=== PATIENT | female | born 1980 | race American Indian/Alaskan Native ===

== ENCOUNTER 2016-11-21 08:01 | Inpatient (IN) | payer MEDICARE ==
[2016-11-21 08:38] LABS: Basophils % (Auto) 0.7 % (0.0-1.8); Eosinophils % (Auto) 1.1 % (0.0-4.3); Hematocrit 38.5 % (30.3-42.9); Hemoglobin 12.8 gm/dl (10.1-14.3); Mean Corpuscular HGB Conc 33 % (30-34); Mean Corpuscular Hemoglobin 28 pg (28-32); Mean Corpuscular Volume 84 fl (79-97); Platelet Count 280 K/mm3 (140-440); Red Blood Count 4.57 M/mm3 (3.65-5.03); Red Cell Distribution Width 15.1 % (13.2-15.2); White Blood Count 6.7 K/mm3 (4.5-11.0)
[2016-11-21 09:18] LABS: Creatine Kinase MB 2.1 ng/mL (0.0-4.0)
[2016-11-21 09:19] LABS: Bacteria,Urine 1+ /HPF (Negative); Bilirubin,Urine NEG (Negative); Blood,Urine SM (Negative); Ketones,Urine 20 mg/dL (Negative); Leukocyte Esterase,Urine SM (Negative); Mucus,Urine FEW /HPF; Nitrite,Urine NEG (Negative); Protein,Urine <15 mg/dL mg/dL (Negative); Urobilinogen,Urine < 2.0 mg/dL (<2.0)
[2016-11-21 09:21] LABS: Creatine Kinase 37 units/L (30-135)
[2016-11-21 09:23] LABS: Anion Gap 21 mmol/L; B-Hydroxybutyrate 24.2 mg/dL (0.2-2.8); BUN/Creatinine Ratio 18.57; Blood Urea Nitrogen 13 mg/dL (7-17); Calcium 8.7 mg/dL (8.4-10.2); Carbon Dioxide 20 mmol/L (22-30); Chloride 101.7 mmol/L (98-107); Glucose 423 mg/dL (65-100); Potassium 4.7 mmol/L (3.6-5.0); Sodium 138 mmol/L (137-145)
[2016-11-21] MEDS ORDERED: MORPHINE IV ONE (17:51)
[2016-11-21] MEDS ORDERED: ZOFRAN IV ONE (17:51)
[2016-11-21] MEDS ORDERED: NITRO-BID 2% TP ONE (17:51)
[2016-11-21] MEDS ORDERED: ASPIRIN PO ONE (17:51)
--- NOTE | 2016-11-21 17:56 | Emergency Department Report ---
HPI - General Chief Complaint: Hyperglycemia Time Seen by Provider: 11/21/16 17:43 - HPI HPI: Hughes 26 The patient is a 36-year-old female presenting with a chief complaint of chest pain. The patient states 2 days ago she had noticed polyuria and polydipsia in addition to her glucose remained elevated despite being compliant with her insulin. The patient states last night she developed substernal chest pressure associated with left upper extremity numbness, nausea and vomiting. Patient denies shortness of breath and is uncertain if she developed diaphoresis with chest pain. Patient currently gives her chest pain a score of 8/10. The patient thinks she may of had a normal chemical stress test early 2015 but has never had a cardiac catheterization Location: Chest, see above Duration: [see above] Quality: Pressure Severity: 8/10 Modifying factors: [see above] Context: [see above] Mode of transportation: [not driving] ED Past Medical Hx - Past Medical History Previous Medical History?: Yes Hx Diabetes: Yes Hx Asthma: Yes Additional medical history: pneumonia - Surgical History Hx Cholecystectomy: Yes (2009) - Family History Family history: no significant - Social History Smoking Status: Current Every Day Smoker (1/4 pack per day) Substance Use Type: None (denies illicit drug use) - Medications Home Medications: Home Medications Medication Instructions Recorded Confirmed Last Taken Type Famotidine [Pepcid] 20 mg PO BID #60 tablet 05/19/16 09/19/16 Unknown Rx Gabapentin [Neurontin] 600 mg PO TID 08/19/16 09/19/16 Unknown History ALBUTEROL Inhaler [ProAir HFA 2 puff IH QID PRN 09/22/16 09/22/16 Unknown History Inhaler] Insulin Glargine [Lantus VIAL] 18 unit SUB-Q QHS 09/22/16 09/22/16 Unknown History Insulin Glargine [Lantus] 18 unit SUB-Q QAM #1 vial 09/22/16 Unknown Rx Insulin Lispro [Humalog 100 11 units SQ AC 09/22/16 09/22/16 Unknown History UNITS/ML Kwikpen] Levofloxacin [Levaquin TAB] 750 mg PO Q24H #3 tablet 09/22/16 Unknown Rx ED Review of Systems ROS: Stated complaint: HIGH BLOOD SUGAR/CHEST/SIDE PAIN Other details as noted in HPI Comment: All other systems reviewed and negative Constitutional: denies: chills, fever Eyes: denies: eye pain, eye discharge, vision change Respiratory: denies: cough, shortness of breath, wheezing Cardiovascular: chest pain Endocrine: increased thirst, increased urine Gastrointestinal: nausea, vomiting Genitourinary: denies: urgency, dysuria, discharge Musculoskeletal: denies: back pain, joint swelling, arthralgia Skin: denies: rash, lesions Neurological: numbness. denies: headache, weakness Psychiatric: denies: anxiety, depression Hematological/Lymphatic: denies: easy bleeding, easy bruising Physical Exam - Physical Exam Vital Signs: Vital Signs 11/21/16 11/21/16 11/21/16 08:09 15:31 15:35 Temperature 98.2 F 98.4 F Pulse Rate 82 72 Respiratory 16 16 16 Rate Blood Pressure 125/81 Blood Pressure 142/91 [Right] O2 Sat by Pulse 100 99 Oximetry 11/21/16 16:39 Temperature Pulse Rate 64 Respiratory 16 Rate Blood Pressure Blood Pressure 138/95 [Right] O2 Sat by Pulse 100 Oximetry Physical Exam: GENERAL: The patient is well-developed well-nourished female lying on stretcher not appearing to be in acute distress. [] HEENT: Normocephalic. Atraumatic. Extraocular motions are intact. Patient has moist mucous membranes. NECK: Supple. Trachea midline CHEST/LUNGS: Clear to auscultation. There is no respiratory distress noted. HEART/CARDIOVASCULAR: Regular. There is no tachycardia. There is no gallop rub or murmur. ABDOMEN: Abdomen is soft, nontender. Patient has normal bowel sounds. There is no abdominal distention. SKIN: There is no rash. There is no edema. There is no diaphoresis. NEURO: The patient is awake, alert, and oriented. The patient is cooperative. The patient has normal speech MUSCULOSKELETAL: There is no evidence of acute injury. ED Course Vital Signs 11/21/16 11/21/16 11/21/16 08:09 15:31 15:35 Temperature 98.2 F 98.4 F Pulse Rate 82 72 Respiratory 16 16 16 Rate Blood Pressure 125/81 Blood Pressure 142/91 [Right] O2 Sat by Pulse 100 99 Oximetry 11/21/16 16:39 Temperature Pulse Rate 64 Respiratory 16 Rate Blood Pressure Blood Pressure 138/95 [Right] O2 Sat by Pulse 100 Oximetry ED Medical Decision Making - Lab Data Result diagrams: 11/21/16 08:23 11/21/16 08:23 Laboratory Tests 11/21/16 11/21/16 11/21/16 08:08 08:23 08:23 WBC 6.7 RBC 4.57 Hgb 12.8 Hct 38.5 MCV 84 MCH 28 MCHC 33 RDW 15.1 Plt Count 280 Lymph % (Auto) 26.4 [place] % (Auto) 3.0 Eos % (Auto) 1.1 Baso % (Auto) 0.7 Lymph # 1.8 [place] # 0.2 Eos # 0.1 Baso # 0.0 Seg Neutrophils % 68.8 Seg Neutrophils # 4.6 VBG pH Sodium 138 Potassium 4.7 Chloride 101.7 Carbon Dioxide 20 L Anion Gap 21 BUN 13 Creatinine 0.7 Estimated GFR > 60 BUN/Creatinine Ratio 18.57 Glucose 423 H POC Glucose 369 H Calcium 8.7 Total Creatine Kinase CK-MB (CK-2) CK-MB (CK-2) Rel Index Troponin T Urine Color Urine Turbidity Urine pH Ur Specific [place] Urine Protein Urine Glucose (UA) Urine Ketones Urine Blood Urine Nitrite Urine Bilirubin Urine Urobilinogen Ur Leukocyte Esterase Urine WBC (Auto) Urine RBC (Auto) U Epithel Cells (Auto) Urine Bacteria (Auto) Urine Mucus Ketones 24.2 H 11/21/16 11/21/16 11/21/16 08:23 08:38 08:53 WBC RBC Hgb Hct MCV MCH MCHC RDW Plt Count Lymph % (Auto) [place] % (Auto) Eos % (Auto) Baso % (Auto) Lymph # [place] # Eos # Baso # Seg Neutrophils % Seg Neutrophils # VBG pH 7.351 Sodium Potassium Chloride Carbon Dioxide Anion Gap BUN Creatinine Estimated GFR BUN/Creatinine Ratio Glucose POC Glucose Calcium Total Creatine Kinase 37 CK-MB (CK-2) 2.1 CK-MB (CK-2) Rel Index 5.6 H Troponin T < 0.010 Urine Color Straw Urine Turbidity Clear Urine pH 5.0 Ur Specific [place] 1.028 Urine Protein <15 mg/dl Urine Glucose (UA) >=500 Urine Ketones 20 Urine Blood Sm Urine Nitrite Neg Urine Bilirubin Neg Urine Urobilinogen < 2.0 Ur Leukocyte Esterase Sm Urine WBC (Auto) 6.0 Urine RBC (Auto) 4.0 U Epithel Cells (Auto) 12.0 Urine Bacteria (Auto) 1+ Urine Mucus Few Ketones 11/21/16 11:38 WBC RBC Hgb Hct MCV MCH MCHC RDW Plt Count Lymph % (Auto) [place] % (Auto) Eos % (Auto) Baso % (Auto) Lymph # [place] # Eos # Baso # Seg Neutrophils % Seg Neutrophils # VBG pH Sodium Potassium Chloride Carbon Dioxide Anion Gap BUN Creatinine Estimated GFR BUN/Creatinine Ratio Glucose POC Glucose > 500 H Calcium Total Creatine Kinase CK-MB (CK-2) CK-MB (CK-2) Rel Index Troponin T Urine Color Urine Turbidity Urine pH Ur Specific [place] Urine Protein Urine Glucose (UA) Urine Ketones Urine Blood Urine Nitrite Urine Bilirubin Urine Urobilinogen Ur Leukocyte Esterase Urine WBC (Auto) Urine RBC (Auto) U Epithel Cells (Auto) Urine Bacteria (Auto) Urine Mucus Ketones - EKG Data -: EKG Interpreted by Me EKG shows normal: sinus rhythm Rate: normal - EKG Data When compared to previous EKG there are: changes noted Interpretation: nonspecific ST-T wave mega (new Biphasic T-wave in lead V3. New T-wave inversions in leads V4, V5, V6 when compared to previous EKG dated 2015) - Radiology Data Radiology results: image reviewed (chest x-ray) interpreted by me: Chest x-ray-no focal infiltrates, no pneumothorax - Differential Diagnosis ACS, DKA, GERD, pericarditis Critical care attestation.: If time is entered above; I have spent that time in minutes in the direct care of this critically ill patient, excluding procedure time. ED Disposition Clinical Impression: Chest pain, Hyperglycemia Disposition: OP ADMITTED IP TO THIS HOSP Is pt being admited?: Yes Does the pt Need Aspirin: Yes Condition: Fair Instructions: Chest Pain (ED) Referrals: PRIMARY CARE, [Primary Care Provider] - 3-5 Days Time of Disposition: 17:58 (hospitalist paged)
[2016-11-21] MEDS ORDERED: NACL 0.9% 1000 ML 1,000 ML IV ONE (18:00)
--- NOTE | 2016-11-21 18:03 | Admit Criteria Form ---
Admission Criteria Documentation: CHEST PAIN Clinical Indications for Admission to Inpatient Care (Place 'X' for any and all applicable criteria): Admission is indicated for chest pain and ANY ONE of the following(1)(2)(3)(4)(5 ): [ ]I. Angina with acute coronary syndrome (Also use Myocardial Infarction or Angina guideline) [ ]II. Hemodynamic instability [X ]III. Angina needing acute intervention as indicated by ALL of the following (11)(12): [X ]a) Unstable angina is present as indicated by angina that is ANY ONE of the following: [ X]i) New onset [ ]ii) Nocturnal [ ]iii) Prolonged at rest [ ]iv) Progressive [ X]b) Angina warrants acute intervention as indicated by ANY ONE of the following: [ ]i) Recurrent angina (e.g, not responding as previously to treatment) [ ]ii) Angina at rest or with low-level activities despite initial medical therapy [ ]iii) New or presumably new ST-segment depression on ECG [ ]iv) Signs or symptoms of heart failure (eg, dyspnea, pulmonary edema) [ ]v) New or worsening mitral regurgitation [ ]vi) Hemodynamic instability [ ]vii) Dangerous arrhythmia (eg, sustained ventricular tachycardia) [ ]viii) History of percutaneous coronary intervention within 6 months [ ]ix) History of coronary artery bypass graft surgery [ ]x) FITO risk score of 2 or greater[A] [X ]xi) History of Diabetes(14) [ ]xii) High-risk cardiac ischemia findings on noninvasive testing (e.g, echocardiogram, treadmill testing, nuclear scan) [ ]xiii) Chronic renal insufficiency (ie, estimated GFR less than 60 mL/min/1.732m) [ ]xiv) Left ventricular ejection fraction less than 40% [ ]IV. Evidence of AR (eg, cardiac biomarkers positive, ST-segment elevation on ECG) also use Myocardial Infarction Criteria Form. [ ]V. Pulmonary edema [ ]. Respiratory distress [ ]VII. Chest pain indicative of serious diagnosis other than coronary artery disease (eg, aortic dissection) [ ]VIII. Contraindications and/or Inappropriate clinical situations for Observational Care in patients with Chest Pain, when ANY ONE of the following is required: [ ]a) Patient with risk factor for pulmonary embolism, acute coronary syndrome and myocardial infarction (18) [ ]b) Patient with Pulmonary embolism require an average LOS of 4.3 days, therefore emergency department observation management is inappropriate 18,23 [ ]c) Painful condition/s in the elderly, have the highest rate of recidivism after emergency department observation management (10.8%) 20,21,22 [ ]d) Elevated cardiac biomarker requires intensive and exhaustive care (19) [ ]IX. General contraindications and/or Inappropriate clinical situations for Observational Care in patients with Chest Pain, when ANY ONE of the following is required: [ ]a) Prediction of prolongation of LOS based on ANY ONE of the following may be considered as a contraindication for observational care 2, 3, 4, 5, 6, 7, 8, 9, 10, 11 [ ]i) Age > 65 yrs. [ ]ii) Patient arriving by ambulance [ ]iii) Patient with high acuity [ ]iv) Patient requiring vital sign monitoring [ ]v) Patient on IV medication [ ]b) Systolic blood pressures 180mmHg 3,12 [ ]c) Patient with altered mental status including delirium and other alteration of consciousness, (3) [ ]d) Patient whose discharge disposition will be to a penitentiary home or rehabilitation home should not be managed in Emergency Department Observation Unit. CMS rule requires 3 days hospital stay before such placement. 3,13 [ ]e) Patient with failure to thrive due to broad array of etiologies 3,16,17 [ ]f) Inability to ambulate 3,14 Extended stay beyond goal length of stay may be needed for (1)(28): [ ]a) Specific condition diagnosed after evaluation (eg, pulmonary embolism, aortic dissection) [ ]b) Unstable angina [ ]c) Continued suspicion of acute coronary syndrome with inability to complete needed cardiac evaluation (eg, patient clinically unable to undergo stress testing) [ ]d) Myocardial infarction (Contents from ANGINA and CHEST PAIN clinical indications for admission to inpatient care have been integrated in this form) The original [employer] content created by [employer] has been revised. The portions of the content which have been revised are identified through the use of italic text or in bold, and [employer] has neither reviewed nor approved the modified material. All other unmodified content is copyright [employer]. Please see references footnoted in the original [email or web address] edition 2016 Admission Criteria Met: Yes
[2016-11-21] MEDS ORDERED: SUBLIMAZE IV ONE (19:34)
[2016-11-21] MEDS ORDERED: SODIUM CHLORIDE FLUSH SYRINGE 10 ML IV PRN (21:22)
--- NOTE | 2016-11-21 21:22 | History and Physical Report ---
History of Present Illness Date of examination: 11/21/16 Date of admission: 11/21/16 17:58 Chief complaint: L sided chest pain since AM History of present illness: L sided CP since AM.Also polydipsia and polyuria sec to high BG levels.Patient says she is compliant with insulinPain is about 7 on a scale of 1 to 10.Dull pain.No diaphoresis.No palpitations. Had stress in early 016 Past History Past Medical History: COPD, diabetes, GERD Past Surgical History: cholecystectomy Social history: smoking (1/4 pack a day) Medications and Allergies Allergies Allergy/AdvReac Type Severity Reaction Status Date / Time heparin Allergy Intermediate Hives Verified 08/18/16 14:28 Penicillins Allergy Intermediate Hives Verified 08/18/16 14:28 ketorolac tromethamine Allergy Itching Verified 08/18/16 14:28 [From Toradol] tramadol HCl [From Ultram] Allergy Itching Verified 08/18/16 14:28 Home Medications Medication Instructions Recorded Confirmed Last Taken Type Famotidine [Pepcid] 20 mg PO BID #60 tablet 05/19/16 09/19/16 11/21/16 Rx Gabapentin [Neurontin] 600 mg PO TID 08/19/16 09/19/16 11/21/16 History ALBUTEROL Inhaler [ProAir HFA 2 puff IH QID PRN 09/22/16 09/22/16 Unknown History Inhaler] Insulin Glargine [Lantus VIAL] 18 unit SUB-Q QHS 09/22/16 09/22/16 11/21/16 History Insulin Glargine [Lantus] 18 unit SUB-Q QAM #1 vial 09/22/16 11/21/16 Rx Insulin Lispro [Humalog 100 11 units SQ AC 09/22/16 09/22/16 11/21/16 History UNITS/ML Kwikpen] Levofloxacin [Levaquin TAB] 750 mg PO Q24H #3 tablet 09/22/16 Unknown Rx Zolpidem [Ambien] 10 mg PO QHS 11/21/16 11/21/16 11/20/16 History Review of Systems All systems: negative Cardiovascular: chest pain Endocrine: polydipsia, polyuria Exam - Constitutional Vitals: Temp Pulse Resp BP Pulse Ox 98.4 F 73 18 133/85 100 11/21/16 15:35 11/21/16 19:47 11/21/16 19:47 11/21/16 19:47 11/21/16 19:47 General appearance: Present: no acute distress, well-nourished - EENT Eyes: Present: PERRL ENT: hearing intact, clear oral mucosa - Neck Neck: Present: supple, normal ROM - Respiratory Respiratory effort: normal Respiratory: bilateral: CTA - Cardiovascular Heart Sounds: Present: S1 & S2. Absent: rub, click - Extremities Extremities: pulses symmetrical, No edema Peripheral Pulses: within normal limits - Abdominal General gastrointestinal: Present: soft, non-tender, non-distended, normal bowel sounds Female genitourinary: Present: normal - Integumentary Integumentary: Present: clear, warm, dry - Musculoskeletal Musculoskeletal: gait normal, strength equal bilaterally - Psychiatric Psychiatric: appropriate mood/affect, intact judgment & insight - Neurologic Neurologic: CNII-XII intact, moves all extremities Results - Labs CBC & Chem 7: 11/21/16 08:23 11/21/16 08:23 Labs: Abnormal lab results 11/21/16 Range/Units 19:54 POC Glucose > 500 H (70-105) Short CBC 11/21/16 Range/Units 08:23 WBC 6.7 (4.5-11.0) K/mm3 Hgb 12.8 (10.1-14.3) gm/dl Hct 38.5 (30.3-42.9) % Plt Count 280 (140-440) K/mm3 [facility] 11/21/16 08:23 Sodium 138 Potassium 4.7 Chloride 101.7 Carbon Dioxide 20 L BUN 13 Creatinine 0.7 Glucose 423 H Calcium 8.7 Cardiac Enzymes 11/21/16 11/21/16 Range/Units 08:38 23:19 Total Creatine Kinase 37 40 (30-135) units/L CK-MB (CK-2) 2.1 1.8 (0.0-4.0) ng/mL Troponin T < 0.010 < 0.010 (0.00-0.029) ng/mL Urine 11/21/16 Range/Units 08:53 Urine Color Straw (Yellow) Urine pH 5.0 (5.0-7.0) Ur Specific [place] 1.028 (1.003-1.030) Urine Protein <15 mg/dl (Negative) mg/dL Urine Glucose (UA) >=500 (Negative) mg/dL - Imaging and Cardiology EKG: report reviewed (Non specific ST T wave changes) Assessment and Plan - Patient Problems (1) Chest pain Current Visit: Yes Status: Acute Qualifiers: Chest pain type: unspecified Qualified Code(s): R07.9 - Chest pain, unspecified Plan to address problem: Chest pain w/u (2) Insulin dependent diabetes mellitus Current Visit: No Status: Chronic Plan to address problem: Cont Lantus and reg insulin (3) Asthma Current Visit: Yes Status: Chronic Qualifiers: Asthma severity: mild intermittent Asthma complication type: uncomplicated Qualified Code(s): J45.20 - Mild intermittent asthma, uncomplicated Plan to address problem: Albuterol MDI 2 puffs qid prn (4) Peripheral neuropathy Current Visit: Yes Status: Chronic Qualifiers: Peripheral neuropathy type: polyneuropathy associated with underlying disease Qualified Code(s): G63 - Polyneuropathy in diseases classified elsewhere Plan to address problem: Cont Gabapentin (5) GERD (gastroesophageal reflux disease) Current Visit: Yes Status: Chronic Qualifiers: Esophagitis presence: without esophagitis Qualified Code(s): K21.9 - Gastro -esophageal reflux disease without esophagitis Plan to address problem: cont ppi's (6) DVT prophylaxis Current Visit: Yes Status: Chronic Plan to address problem: Lovenox
[2016-11-21] MEDS ORDERED: PROAIR IH PRN (21:24)
[2016-11-21] MEDS ORDERED: PROVENTIL IH PRN (21:35)
[2016-11-21] MEDS ORDERED: LEVEMIR SUB-Q SCH (22:00)
[2016-11-21] MEDS ORDERED: INSULIN GLARGINE 18 UNIT SUB-Q SCH (22:00)
[2016-11-21] MEDS ORDERED: AMBIEN PO PRN (22:52)
[2016-11-21] MEDS: PEPCID PO SCH (23:03)
[2016-11-21] MEDS: PERCOCET 5/325 PO PRN (23:03)
[2016-11-22 00:46] LABS: Creatine Kinase MB 1.8 ng/mL (0.0-4.0)
[2016-11-22 00:48] LABS: Creatine Kinase 40 units/L (30-135)
[2016-11-22 05:48] VITALS: BP 111/74
[2016-11-22] MEDS: PERCOCET 5/325 PO PRN ×2 (06:32→12:45)
[2016-11-22] MEDS ORDERED: INSULIN LISPRO SQ SCH (07:30)
[2016-11-22] MEDS ORDERED: NEURONTIN PO SCH ×2 (08:00)
--- NOTE | 2016-11-22 08:15 | XRay Report ---
AP CHEST : 11/21/16 08:01:00 CLINICAL: Chest pain. COMPARISON:09/19/16 FINDINGS: Normal heart and pulmonary vessels. The lungs are mildly hyperexpanded and clear. The bones and soft tissues are unremarkable. IMPRESSION: Mild pulmonary hyperinflation but otherwise normal.
[2016-11-22] MEDS: NOVOLOG SUB-Q SCH ×4 (08:30→12:55)
--- NOTE | 2016-11-22 09:07 | Consultation ---
History of Present Illness Consult date: 11/22/16 Requesting physician: BIPIN BAIG History of present illness: The patient is a 36 year old female with a history of diabetes, tobacco abuse who presented with complaints of intermittent substernal chest pain with radiation to her left arm over the past 3 days. She describes the pain as "pressure" and "tightness." Associated with nausea, vomiting and diaphoresis. Denies shortness of breath. No exacerbating or relieving factors. Troponin negative x 2. Blood glucose 423 on admission. Stress test done 05/2016 was negative for ischemia. No previous cardiac cath. Past History Past Medical History: diabetes Past Surgical History: cholecystectomy Social history: smoking (1/4 pack a day). denies: alcohol abuse, prescription drug abuse, IV drug use Family history: no significant family history Medications and Allergies Allergies Allergy/AdvReac Type Severity Reaction Status Date / Time heparin Allergy Intermediate Hives Verified 08/18/16 14:28 Penicillins Allergy Intermediate Hives Verified 08/18/16 14:28 ketorolac tromethamine Allergy Itching Verified 08/18/16 14:28 [From Toradol] tramadol HCl [From Ultram] Allergy Itching Verified 08/18/16 14:28 Home Medications Medication Instructions Recorded Confirmed Last Taken Type Famotidine [Pepcid] 20 mg PO BID #60 tablet 05/19/16 09/19/16 11/21/16 Rx Gabapentin [Neurontin] 600 mg PO TID 08/19/16 09/19/16 11/21/16 History ALBUTEROL Inhaler [ProAir HFA 2 puff IH QID PRN 09/22/16 09/22/16 Unknown History Inhaler] Insulin Glargine [Lantus VIAL] 18 unit SUB-Q QHS 09/22/16 09/22/16 11/21/16 History Insulin Glargine [Lantus] 18 unit SUB-Q QAM #1 vial 09/22/16 11/21/16 Rx Insulin Lispro [Humalog 100 11 units SQ AC 09/22/16 09/22/16 11/21/16 History UNITS/ML Kwikpen] Levofloxacin [Levaquin TAB] 750 mg PO Q24H #3 tablet 09/22/16 Unknown Rx Zolpidem [Ambien] 10 mg PO QHS 0211/21/16 11/20/16 History Active Meds: Active Medications Albuterol (Proventil) 2.5 mg IH Q4HRT PRN PRN Reason: Shortness Of Breath Famotidine (Pepcid) 20 mg PO BID [facility] Last Admin: 11/21/16 23:03 Dose: 20 mg Gabapentin (Neurontin) 600 mg PO TID [facility] Insulin Aspart (Novolog) 0 units SUB-Q ACHS [facility] PRN Reason: Protocol Insulin Aspart (Novolog) 11 units SUB-Q AC [facility] Insulin Detemir (Levemir) 18 units SUB-Q QHS [facility] Last Admin: 11/22/16 00:07 Dose: 18 units Insulin Detemir (Levemir) 18 units SUB-Q QAM [facility] Oxycodone/Acetaminophen (Percocet 5/325) 1 tab PO Q6H PRN PRN Reason: Pain, Moderate (4-6) Last Admin: 11/22/16 06:32 Dose: 1 tab Sodium Chloride (Sodium Chloride Flush Syringe 10 Ml) 10 ml IV PRN PRN PRN Reason: LINE FLUSH Zolpidem Tartrate (Ambien) 10 mg PO QHS PRN PRN Reason: Insomnia Last Admin: 11/21/16 23:03 Dose: 10 mg Review of Systems Constitutional: no fever, no chills Ears, nose, mouth and throat: no nasal congestion, no nasal discharge, no sinus pressure Cardiovascular: chest pain, no orthopnea, no palpitations, no shortness of breath, no dyspnea on exertion, no leg edema Respiratory: no cough, no shortness of breath, no dyspnea on exertion, no congestion, no wheezing Gastrointestinal: nausea, vomiting, no abdominal pain, no diarrhea, no constipation Genitourinary Female: no dysuria, no urgency Musculoskeletal: no neck stiffness, no neck pain, no myalgias Integumentary: no rash, no pruritis Neurological: no parathesias, no numbness, no tingling, no headaches Endocrine: no cold intolerance, no heat intolerance Hematologic/Lymphatic: no easy bruising, no easy bleeding Allergic/Immunologic: no urticaria, no wheezing Physical Examination Vital Signs Temp Pulse Resp BP Pulse Ox 98.2 F 82 16 125/81 100 11/21/16 08:09 11/21/16 08:09 11/21/16 08:09 11/21/16 08:09 11/21/16 08:09 General appearance: no acute distress HEENT: Positive: Normocephaly, Mucus Membranes Moist Neck: Positive: neck supple, trachea midline Cardiac: Positive: Reg Rate and Rhythm, S1/S2 Lungs: Positive: clear to auscultation Neuro: Positive: Grossly Intact Abdomen: Positive: Soft, Active Bowel Sounds. Negative: Tender Skin: Positive: Clear. Negative: Rash Extremities: Present: normal. Absent: edema Results 11/21/16 08:23 11/21/16 08:23 Cardiac Enzymes 11/21/16 Range/Units 23:19 CK-MB (CK-2) 1.8 (0.0-4.0) ng/mL - Imaging and Cardiology Echo: report reviewed (08/2016: EF 55-60%) EKG: image reviewed EKG interpretations - Telemetry EKG Rhythm: Sinus Rhythm - EKG Sinus rhythms and dysrhythmias: sinus rhythm Repolarization changes or abnormalities: ST or T wave suggestive of ischemia Assessment and Plan Chest pain troponin negative x 2 stress MPI 05/2016: no ischemia Echo 08/2016: EF 55-60% Left heart cath today for definitive diagnosis Uncontrolled diabetes management per primary Tobacco abuse counseled on cessation Will proceed with left heart cath today for definitive diagnosis. Risks, benefits and alternatives were discussed with the patient and she agrees to proceed. Further recommendations to follow. The patient has been seen in conjunction with Dr. Lyman who agrees with the assessment and plan of care. Thank you Dr. Baig for allowing us to participate in the care of this patient.
[2016-11-22] MEDS ORDERED: ECOTRIN PO ONE ×2 (09:59→10:05)
[2016-11-22] MEDS ORDERED: ASPIRIN PO ONE (10:00)
[2016-11-22] MEDS ORDERED: INSULIN GLARGINE 18 UNIT SUB-Q SCH (10:00)
[2016-11-22] MEDS ORDERED: NACL 0.9% 500 ML 500 ML IV SCH (10:00)
[2016-11-22] MEDS ORDERED: LEVEMIR SUB-Q SCH (10:00)
[2016-11-22] MEDS ORDERED: NACL 0.9% 500 ML 1,000 ML ONE (10:05)
[2016-11-22] MEDS ORDERED: ANGIOMAX IV ONE (10:05)
[2016-11-22] MEDS ORDERED: NACL 0.9% 100 ML ONE (10:06)
[2016-11-22] MEDS ORDERED: NACL 0.9% 500 ML 500 ML ONE ×2 (10:07→10:22)
[2016-11-22] MEDS ORDERED: CALAN ONE (10:21)
[2016-11-22] MEDS ORDERED: VERSED ONE (10:21)
[2016-11-22] MEDS ORDERED: NITROGLYCERIN SYRINGE 3 ML ONE (10:22)
[2016-11-22] MEDS ORDERED: XYLOCAINE 2% INFILTRATI ONE (10:29)
[2016-11-22] MEDS: SUBLIMAZE ONE ×2 (10:40→10:56)
--- NOTE | 2016-11-22 12:10 | Cardiac Catherization Report ---
CARDIAC CATHETERIZATION REFERRING PHYSICIAN: Joselyn Rivera MD INDICATION FOR PROCEDURE: The patient is a pleasant 36-year-old -[place] female with recurrent chest pain, had a negative stress test some 5 months ago, similar symptoms. She was offered 3 choices. Medical management, cardiac CT was recommended, she declined and cardiac catheterization. She would like to proceed with cardiac catheterization. Risks, benefits, and potential alternatives explained at length prior to obtaining informed consent. She signed the document saying she is not . PROCEDURE IN DETAIL: The patient was brought to the labor contractor in a postabsorptive state, prepped and draped in sterile fashion. Alex's test in right hand was normal. A 2 mL of 2% lidocaine used to anesthetize the right wrist. A standard 5 [place]an hydrophilic sheath used to cannulate the right radial artery via modified Seldinger technique. All exchanges performed to exchange a J-tip guidewire. JL3.5 catheter used to engage the left main. No dampening or ventricularization. Cineangiography performed in all projections. JR4 catheter used to cross the aortic valve under fluoroscopic guidance. Left ventriculography performed in 30 COSTA and 30 AMRIK projections via hand injections, catheter flushed. Manual pullback performed with continuous pressure monitoring. Catheter used to engage the right coronary. No dampening or ventricularization. Cineangiography performed in all projections. Next, catheter removed from the body of wire, sheath removed. Manual pressure used to achieve hemostasis. DATA: Aortic pressure is 110/70, LV pressure is 110, LVEDP of 10 mmHg. Left ventriculography reveals normal systolic performance with estimated ejection fraction of 55-60%. No evidence of aortic stenosis. CORONARY ANATOMY: This is a right dominant system. Right coronary is a moderate sized vessel, courses AV groove, distally bifurcates in the posterior descending and posterolateral branch. No significant stenosis noted. Left main is without significant disease, bifurcates into left anterior descending and left circumflex. LAD is a moderate sized vessel, courses anterior intergroove, wraps around the apex, no significant disease. Left circumflex is a moderate sized vessel, courses AV groove, no significant disease. CONCLUSIONS: 1. No angiographic evidence of significant epicardial coronary artery disease in this right dominant system. 2. Normal left ventricular systolic performance with estimated ejection fraction of 55-60%. 3. No evidence of aortic stenosis. 4. Normal LVEDP. Recommend aggressive risk factor modification. Results of procedure explained to the patient. All questions and concerns were addressed to her expectation. JOB# [id number] KONSTANTIN/NTS
[2016-11-22] MEDS: PEPCID PO SCH (12:47)
--- NOTE | 2016-11-22 13:20 | Discharge Summary ---
Providers - Providers Date of Admission: 11/21/16 17:58 Date of discharge: 11/22/16 Attending physician: BIPIN BAIG MD 11/21/16 Consult to Cardiac Rehabilitation [CONS] Routine Reason For Exam: Phase I Primary care physician: ALBERTO ROSS MD Hospitalization Reason for admission: chest pain Condition: Fair Procedures: Cardiac cath negative for obstruction Hospital course: 36-year-old female with history of diabetes presented to the emergency department complaining of chest pain. Recently patient was also presented with chest pain and cardiac stress test done and negative for ischemia. On current presentation EKG was normal sinus rhythm, troponin were negative. Because the patient Was recurrent chest pain cardiac cath was done which was negative for any obstruction. Patient has mild chest pain when I saw her and she was given pain medication and discharged home to have follow-up with primary care physician. Patient was stable during the time of discharge. Disposition: DISCHARGED TO HOME OR SELFCARE Time spent for discharge: 31 minutes Core Measure Documentation - Palliative Care Palliative Care/ Comfort Measures: Not Applicable - Core Measures Any of the following diagnoses?: none Exam - Physical Exam Narrative exam: Not in cardiopulmonary distress. Vital signs as documented. Head exam is unremarkable. No scleral icterus . Neck is without jugular venous distension, thyromegaly, or carotid bruits. Lungs are clear to auscultation. Cardiac exam reveals regular rate and Rhythm. First and second heart sounds normal. No murmurs, rubs or gallops. Abdominal exam reveals normal bowel sounds, no masses, no organomegaly and no aortic enlargement. Extremities are nonedematous and both femoral and pedal pulses are normal. DRAFTSPERSON: Alert and oriented 3. No focal weakness. - Constitutional Vitals: Temp Pulse Resp BP Pulse Ox 98.2 F 71 18 111/74 97 11/22/16 08:00 11/22/16 08:00 11/22/16 08:00 11/22/16 08:00 11/22/16 08:00 Plan Activity: no restrictions Weight Bearing Status: Full Weight Bearing (Patient was discharged after 11:00 am because the patient was having cardiac cath in the morning.) Diet: low cholesterol, diabetic Follow up with: PRIMARY CAREMD [Primary Care Provider] - 3-5 Days Forms: Work/School Excuse Out Patient Prescriptions: oxyCODONE /ACETAMINOPHEN [Percocet 5/325 mg] 1 tab PO Q6H PRN #12 tablet PRN Reason: Pain, Moderate (4-6)
== END 2016-11-22 17:28 | disposition home or self-care (01) | DRG 287 ==
LOC: ED 08:01 → UNDOADMIN 17:58 → 3A 17:58 → 4A 21:23
PROVIDERS: ADMIT Internal Medicine; ATTEND Internal Medicine
PROC: 4A023N7 Measurement of Cardiac Sampling and Pressure, Left Heart, Percutaneous Approach (ICD-10-PCS; principal; 2016-11-21)
PROC: B2151ZZ Fluoroscopy of Left Heart using Low Osmolar Contrast (ICD-10-PCS; 2016-11-21)
PROC: B2111ZZ Fluoroscopy of Multiple Coronary Arteries using Low Osmolar Contrast (ICD-10-PCS; 2016-11-21)
DX: R07.9 Chest pain, unspecified (principal); J44.9 Chronic obstructive pulmonary disease, unspecified; K21.9 Gastro-esophageal reflux disease without esophagitis; F17.200 Nicotine dependence, unspecified, uncomplicated; J45.909 Unspecified asthma, uncomplicated; E11.42 Type 2 diabetes mellitus with diabetic polyneuropathy; Z88.0 Allergy status to penicillin; Z90.49 Acquired absence of other specified parts of digestive tract; Z79.4 Long term (current) use of insulin; Z88.8 Allergy status to other drugs, medicaments and biological substances
CPT/HCPCS: 36415; 71010; 80048; 81001; 81025; 82010; 82550; 82553; 82805; 82962; 84484; 85025; 93005; 93010; 93458; 96361; 96372; 96374; 96375; 99406; C1894; J0583; J1815; J1818; J2250; J2270; J2405; J3010; J7030; J7040; Q9967

== ENCOUNTER 2016-11-28 21:53 | Emergency (ER) | payer MEDICARE ==
[2016-11-28 22:53] LABS: Basophils % (Auto) 0.8 % (0.0-1.8); Eosinophils % (Auto) 1.1 % (0.0-4.3); Hematocrit 39.2 % (30.3-42.9); Hemoglobin 12.8 gm/dl (10.1-14.3); Mean Corpuscular HGB Conc 33 % (30-34); Mean Corpuscular Hemoglobin 28 pg (28-32); Mean Corpuscular Volume 86 fl (79-97); Platelet Count 290 K/mm3 (140-440); Red Blood Count 4.56 M/mm3 (3.65-5.03); Red Cell Distribution Width 15.1 % (13.2-15.2); White Blood Count 9.1 K/mm3 (4.5-11.0)
[2016-11-28 23:11] LABS: B-Hydroxybutyrate 1.4 mg/dL (0.2-2.8); BUN/Creatinine Ratio 16.66; Blood Urea Nitrogen 15 mg/dL (7-17); Calcium 8.8 mg/dL (8.4-10.2); Carbon Dioxide 21 mmol/L (22-30); Sodium 130 mmol/L (137-145)
[2016-11-28 23:12] LABS: Anion Gap 21 mmol/L; Chloride 92.6 mmol/L (98-107); Potassium 4.5 mmol/L (3.6-5.0)
[2016-11-28 23:19] LABS: Glucose 685 mg/dL (65-100)
[2016-11-29] MEDS ORDERED: NACL 0.9% 1000 ML 1,000 ML IV ONE ×2 (02:33→04:38)
[2016-11-29] MEDS ORDERED: ZOFRAN IV ONE (02:33)
[2016-11-29] MEDS ORDERED: DILAUDID IV ONE (02:33)
--- NOTE | 2016-11-29 02:37 | Emergency Department Report ---
ED General Adult HPI - General Chief complaint: Hyperglycemia Stated complaint: HIGH BLOODSUGAR,INFECTION RT ARM Time Seen by Provider: 11/29/16 02:22 Source: patient, RN notes reviewed, old records reviewed Mode of arrival: Ambulatory Limitations: No Limitations - History of Present Illness Initial comments: This is a 36-year-old female. She is previously unknown to me. She has a past medical history of diabetes, diabetic gastroparesis. Patient had a right-sided radial cardiac catheterization performed on 2016 at this facility. The patient presents to the ER with multiple complaints. Her first complaint is right-sided hand and forearm pain. The pain has been present for 1 week. It is achy. It increases with palpation or range of motion. It decreases with rest. There is no extremity weakness. Her next complainthis crampy abdominal discomfort, nausea, vomiting. No irritative or obstructive urinary symptoms. Abdominal cramping is similar to prior episodes of hyperglycemia. No fevers or chills. No chest pain or shortness of breath. The patient does indicate minimal discharge from the right upper extremity catheterization site. -: Gradual Location: right, upper extremity Radiation: abdomen Quality: aching Consistency: intermittent Improves with: rest Worsens with: movement Associated Symptoms: loss of appetite, malaise, nausea/vomiting, weakness - Related Data Home Medications Medication Instructions Recorded Confirmed Last Taken Gabapentin [Neurontin] 600 mg PO TID 08/19/16 11/29/16 11/21/16 Zolpidem [Ambien] 10 mg PO QHS 11/21/16 11/29/16 11/20/16 Insulin Aspart Prot/Aspart 11 units SQ BID 11/29/16 11/29/16 Unknown [Novolog Mix 70/30] oxyCODONE /ACETAMINOPHEN [Percocet 5 mg PO PRN 11/29/16 11/29/16 Unknown 5/325 mg] Previous Rx's Medication Instructions Recorded Last Taken Type Insulin Glargine [Lantus VIAL] 18 unit SUB-Q QAM #1 vial 09/22/16 11/21/16 Rx Clindamycin [Clindamycin CAP] 300 mg PO Q8H #15 cap 11/29/16 Unknown Rx Dicyclomine [Bentyl] 10 mg PO QID PRN #20 capsule 11/29/16 Unknown Rx Famotidine [Pepcid] 20 mg PO QDAY #30 tablet 11/29/16 Unknown Rx Ondansetron [Zofran Odt] 4 mg PO QID PRN #20 tab.rapdis 11/29/16 Unknown Rx Promethazine [Phenergan SUPPOS] 50 mg IN Q6H PRN #15 supp.rect 11/29/16 Unknown Rx Allergies Allergy/AdvReac Type Severity Reaction Status Date / Time heparin Allergy Intermediate Hives Verified 08/18/16 14:28 Penicillins Allergy Intermediate Hives Verified 08/18/16 14:28 ketorolac tromethamine Allergy Itching Verified 08/18/16 14:28 [From Toradol] tramadol HCl [From Ultram] Allergy Itching Verified 08/18/16 14:28 ED Review of Systems ROS: Stated complaint: HIGH BLOODSUGAR,INFECTION RT ARM Other details as noted in HPI Constitutional: malaise Eyes: denies: vision change ENT: denies: epistaxis Respiratory: denies: cough Cardiovascular: denies: chest pain Gastrointestinal: abdominal pain, nausea, vomiting Genitourinary: denies: urgency, dysuria Musculoskeletal: arthralgia, myalgia Skin: lesions Neurological: weakness ED Past Medical Hx - Past Medical History Previous Medical History?: Yes Hx Congestive Heart Failure: No Hx Diabetes: Yes Hx Asthma: Yes Hx COPD: No Hx HIV: No Additional medical history: pneumonia. MRSA - Surgical History Past Surgical History?: Yes Hx Cholecystectomy: Yes (2009) - Social History Smoking Status: Current Every Day Smoker - Medications Home Medications: Home Medications Medication Instructions Recorded Confirmed Last Taken Type Gabapentin [Neurontin] 600 mg PO TID 08/19/16 11/29/16 11/21/16 History Insulin Glargine [Lantus VIAL] 18 unit SUB-Q QAM #1 vial 09/22/16 11/29/1611/21 Rx Zolpidem [Ambien] 10 mg PO QHS 11/21/16 11/29/16 11/20/16 History Clindamycin [Clindamycin CAP] 300 mg PO Q8H #15 cap 11/29/16 Unknown Rx Dicyclomine [Bentyl] 10 mg PO QID PRN #20 capsule 11/29/16 Unknown Rx Famotidine [Pepcid] 20 mg PO QDAY #30 tablet 11/29/16 Unknown Rx Insulin Aspart Prot/Aspart 11 units SQ BID 11/29/16 11/29/16 Unknown History [Novolog Mix 70/30] Ondansetron [Zofran Odt] 4 mg PO QID PRN #20 tab.rapdis 11/29/16 Unknown Rx Promethazine [Phenergan SUPPOS] 50 mg IN Q6H PRN #15 supp.rect 11/29/16 Unknown Rx oxyCODONE /ACETAMINOPHEN [Percocet 5 mg PO PRN 11/29/16 11/29/16 Unknown History 5/325 mg] ED Physical Exam - General Limitations: No Limitations General appearance: alert, in no apparent distress - Head Head exam: Present: atraumatic, normocephalic - Eye Eye exam: Present: normal appearance, EOMI. Absent: nystagmus - ENT ENT exam: Present: normal exam, normal orophraynx, mucous membranes moist, normal external ear exam - Neck Neck exam: Present: normal inspection, full ROM. Absent: tenderness, meningismus - Respiratory Respiratory exam: Present: normal lung sounds bilaterally. Absent: respiratory distress, wheezes, rales, rhonchi, stridor, chest wall tenderness - Cardiovascular Cardiovascular Exam: Present: regular rate, normal rhythm, normal heart sounds. Absent: bradycardia, tachycardia, irregular rhythm, systolic murmur, diastolic murmur, rubs, gallop - GI/Abdominal GI/Abdominal exam: Present: soft, normal bowel sounds. Absent: distended, tenderness, guarding, rebound, rigid, pulsatile mass - Extremities Exam Extremities exam: Present: full ROM, tenderness, normal capillary refill, other (there are 2+ pulses noted in 4 extremities. The right radial catheterization site demonstrates no obvious pus, streaking, crepitus or swelling. At the catheterization site, there is a 0.5 cm area of erythema. It is minimally tender. The compartments are soft.). Absent: pedal edema, joint swelling, calf tenderness - Back Exam Back exam: Present: normal inspection, full ROM. Absent: tenderness, CVA tenderness (R), CVA tenderness (L), muscle spasm, paraspinal tenderness, vertebral tenderness - Neurological Exam Neurological exam: Present: alert, oriented X3, normal gait, other (Extraocular movements intact. Tongue midline. No facial droop. Facial sensation intact to light touch in the V1, V2, V3 distribution bilaterally. 5 and 5 strength in 4 extremities.. Sensation is intact to light touch in 4 extremities.). Absent : motor sensory deficit - Psychiatric Psychiatric exam: Present: normal affect, normal mood - Skin Skin exam: Present: warm, dry, intact, normal color. Absent: rash ED Course Vital Signs 11/28/16 11/29/16 22:05 04:16 Temperature 98.9 F 99.2 F Pulse Rate 90 87 Respiratory 18 18 Rate Blood Pressure 128/94 Blood Pressure 126/66 [Left] O2 Sat by Pulse 100 98 Oximetry - Reevaluation(s) Reevaluation #1: 11/29/16 04:16 Differential diagnoses: Gastroparesis, hyperglycemia, diabetic ketoacidosis, pain status post cardiac catheterization, cyclic vomiting syndrome, narcotic bowel syndrome Assessment and plan: 36-year-old female with hyperglycemia without significant anion gap, minimally low venous pH, does not have large ketones in her blood. There is minimal erythema at the insertion site of the right upper extremity where her cardiac catheterization took place, but it is very localized without any distal swelling, crepitus cellulitis, or obvious compartment syndrome. Patient has been observed in the ER for a prolonged period of time, I see no active vomiting. Her abdomen is soft and benign. Repeat Accu-Chek is 392. She reports that she is not . She will be started on oral antibiotics, instructed to initiate warm compresses , counseled to follow up with outpatient Reevaluation #2: 11/29/16 04:35 patient now indicating the presence of chest wall discomfort. It is central. Does not rated to the back, arms or neck. EKG morphologically unchanged from prior EKG. Her negative cardiac catheterization about a week ago. I see no reason to repeat a set of troponins on her given her recent cardiac catheterization. Clinically doubt the patient has a pulmonary embolus, she is not hypoxic, pain not pleuritic, I find the patient to be low risk by well's criteria, and review review of her old medical records indicates that the patient has chronic complaint of chest pain. Reevaluation #3: 11/29/16 05:29 repeat Accu-Chek 295. Chest x-ray negative. No active vomiting. Patient will be discharged. ED Medical Decision Making - Lab Data Result diagrams: 11/28/16 22:22 11/28/16 22:22 Vital Signs 11/28/16 11/29/16 22:05 04:16 Temperature 98.9 F 99.2 F Pulse Rate 90 87 Respiratory 18 18 Rate Blood Pressure 128/94 Blood Pressure 126/66 [Left] O2 Sat by Pulse 100 98 Oximetry Lab Results 11/28/16 11/28/16 11/28/16 Range/Units 22:11 22:22 22:22 WBC 9.1 (4.5-11.0) K/mm3 RBC 4.56 (3.65-5.03) M/mm3 Hgb 12.8 (10.1-14.3) gm/dl Hct 39.2 (30.3-42.9) % MCV 86 (79-97) fl MCH 28 (28-32) pg MCHC 33 (30-34) % RDW 15.1 (13.2-15.2) % Plt Count 290 (140-440) K/mm3 Lymph % (Auto) 30.2 (13.4-35.0) % [place] % (Auto) 3.9 (0.0-7.3) % Eos % (Auto) 1.1 (0.0-4.3) % Baso % (Auto) 0.8 (0.0-1.8) % Lymph # 2.7 (1.2-5.4) K/mm3 [place] # 0.4 (0.0-0.8) K/mm3 Eos # 0.1 (0.0-0.4) K/mm3 Baso # 0.1 (0.0-0.1) K/mm3 Seg Neutrophils % 64.0 (40.0-70.0) % Seg Neutrophils # 5.8 (1.8-7.7) K/mm3 VBG pH (7.320-7.420) Sodium 130 L (137-145) mmol/L Potassium 4.5 (3.6-5.0) mmol/L Chloride 92.6 L (98-107) mmol/L Carbon Dioxide 21 L (22-30) mmol/L Anion Gap 21 mmol/L BUN 15 (7-17) mg/dL Creatinine 0.9 (0.7-1.2) mg/dL Estimated GFR > 60 ml/min BUN/Creatinine Ratio 16.66 % Glucose 685 H* (65-100) mg/dL POC Glucose > 500 H (70-105) Calcium 8.8 (8.4-10.2) mg/dL Total Creatine Kinase (30-135) units/L Ketones 1.4 (0.2-2.8) mg/dL 11/28/16 11/29/16 Range/Units 22:22 03:13 WBC (4.5-11.0) K/mm3 RBC (3.65-5.03) M/mm3 Hgb (10.1-14.3) gm/dl Hct (30.3-42.9) % MCV (79-97) fl MCH (28-32) pg MCHC (30-34) % RDW (13.2-15.2) % Plt Count (140-440) K/mm3 Lymph % (Auto) (13.4-35.0) % [place] % (Auto) (0.0-7.3) % Eos % (Auto) (0.0-4.3) % Baso % (Auto) (0.0-1.8) % Lymph # (1.2-5.4) K/mm3 [place] # (0.0-0.8) K/mm3 Eos # (0.0-0.4) K/mm3 Baso # (0.0-0.1) K/mm3 Seg Neutrophils % (40.0-70.0) % Seg Neutrophils # (1.8-7.7) K/mm3 VBG pH 7.312 L (7.320-7.420) Sodium (137-145) mmol/L Potassium (3.6-5.0) mmol/L Chloride (98-107) mmol/L Carbon Dioxide (22-30) mmol/L Anion Gap mmol/L BUN (7-17) mg/dL Creatinine (0.7-1.2) mg/dL Estimated GFR ml/min BUN/Creatinine Ratio % Glucose (65-100) mg/dL POC Glucose (70-105) Calcium (8.4-10.2) mg/dL Total Creatine Kinase 44 (30-135) units/L Ketones (0.2-2.8) mg/dL - EKG Data 11/29/16 04:39 Normal sinus, 88 bpm, nonspecific atrial enlargement, T wave inversion in V3, V4 , V5 and V6. Morphologically abnormal EKG. Not consistent with STEMI. Appears unchanged compared to prior EKG from 11/22/2016. Critical care attestation.: If time is entered above; I have spent that time in minutes in the direct care of this critically ill patient, excluding procedure time. ED Disposition Clinical Impression: Hyperglycemia, Abnormal EKG Disposition: DISCHARGED TO HOME OR SELFCARE Is pt being admited?: No Does the pt Need Aspirin: No Condition: Stable Instructions: Diabetic Hyperglycemia (ED) Additional Instructions: Take the pain medication, nausea medication, antibiotic therapy as directed. Apply warm compresses to the right upper extremity painful site. Follow-up with the marine electrician apprentice within the next week. Follow up with a primary care doctor within the next week. Return to the ER right away with new pain, worsened pain, migration of pain, fevers or chills, intractable nausea or vomiting, inability to tolerate liquid feeds. Referrals: PRIMARY CARE, [Primary Care Provider] - 3-5 Days MARISOL OWEN MD [Staff Physician] - 3-5 Days MONA PEDERSEN MD [Staff Physician] - 3-5 Days
[2016-11-29 04:17] VITALS: BP 126/66
[2016-11-29] MEDS ORDERED: PEPCID PO ONE (04:20)
[2016-11-29] MEDS ORDERED: ALUM-MAG HYDROX-SIMETH 200-200-20MG/5ML PO ONE (04:20)
[2016-11-29 04:50] LABS: Bilirubin,Urine NEG (Negative); Blood,Urine NEG (Negative); Ketones,Urine TR mg/dL (Negative); Leukocyte Esterase,Urine SM (Negative); Mucus,Urine FEW /HPF; Nitrite,Urine NEG (Negative); Protein,Urine <15 mg/dL mg/dL (Negative); Urobilinogen,Urine < 2.0 mg/dL (<2.0)
[2016-11-29] MEDS ORDERED: BENTYL PO ONE (05:39)
--- NOTE | 2016-11-29 08:50 | XRay Report ---
PORTABLE CHEST: INDICATION: Chest pain. COMPARISON: 11/21/2016 FINDINGS: Portable, frontal chest radiograph again demonstrates normal cardiomediastinal silhouette and well-expanded lungs. No pleural effusions or CHF. Approximately 3.7 x 2.7 cm rounded left retrocardiac density projects about the left costovertebral angle/paravertebral. EKG leads. No acute osseous process with approximately 8 mm calcification at the right shoulder/calcific tendinitis. CONCLUSION: 1. Subtle left retrocardiac round mass-like density suspected, overall smaller since September 2016. Though may represent residual pneumonia, it may also be further characterized with chest CT, if warranted. 2. Few other findings, including right shoulder calcification. Thank you for the opportunity to participate in this patient's care.
== END 2016-11-29 06:00 | disposition home or self-care (01) ==
LOC: ED 21:53
DX: E11.65 Type 2 diabetes mellitus with hyperglycemia (principal); R94.31 Abnormal electrocardiogram [ECG] [EKG]; J45.909 Unspecified asthma, uncomplicated; F17.200 Nicotine dependence, unspecified, uncomplicated
CPT/HCPCS: 36415; 71010; 80048; 81001; 81025; 82010; 82550; 82805; 82962; 85025; 93005; 93010; 96361; 96374; 96375; 99285; J1170; J2405; J7030; J1815

== ENCOUNTER 2017-04-17 17:29 | Emergency (ER) | payer MEDICARE ==
--- NOTE | 2017-04-17 17:51 | Emergency Department Report ---
Entered by SHAHIDA BISWAS, acting as scribe for APOLINAR FERRER NP. Chief Complaint: Chest Pain Stated Complaint: CHEST PAIN/ ELEVATED BLOOD SUGAR Time Seen by Provider: 04/17/17 17:39 - HPI History of Present Illness: 37 y/o female presents to the ED c/o chest pain x 3 days. Associated symptoms include high blood glucose >500. Denies fever and chills. NKDA. PT states there was a recent change in her insulin - ROS Review of Systems: +chest pain +high blood glucose -fever -chills + nausea - Exam Vital Signs: Vital Signs 04/17/17 17:41 Temperature 98.5 F Pulse Rate 86 Respiratory 18 Rate Blood Pressure 123/86 O2 Sat by Pulse 97 Oximetry Physical Exam: pt looks well, non toxic. thin no acute distress bg >500 MSE screening note: Focused history and physical exam performed. Due to findings the following was ordered: labs ED Disposition for MSE Condition: Stable This documentation as recorded by the scribe,SHAHIDA BISWAS,accurately reflects the service I personally performed and the decisions made by CARISSA rivers TRACY M, ÓSCAR.
[2017-04-17 18:16] LABS: Basophils % (Auto) 0.7 % (0.0-1.8); Hemoglobin 13.4 gm/dl (10.1-14.3); Mean Corpuscular HGB Conc 33 % (30-34); Mean Corpuscular Hemoglobin 29 pg (28-32); Mean Corpuscular Volume 87 fl (79-97); Platelet Count 249 K/mm3 (140-440); Red Blood Count 4.61 M/mm3 (3.65-5.03); Red Cell Distribution Width 15.1 % (13.2-15.2); White Blood Count 7.7 K/mm3 (4.5-11.0)
[2017-04-17 18:27] LABS: Alanine Aminotransferase 6 units/L (7-56); Albumin 4.2 g/dL (3.9-5); Albumin/Globulin Ratio 1.4 %; Alkaline Phosphatase 130 units/L (35-129); Anion Gap 21 mmol/L; BUN/Creatinine Ratio 21.25; Blood Urea Nitrogen 17 mg/dL (7-17); Calcium 8.9 mg/dL (8.4-10.2); Carbon Dioxide 22 mmol/L (22-30); Chloride 93.9 mmol/L (98-107); Lipase 47 units/L (13-60); Potassium 4.9 mmol/L (3.6-5.0); Sodium 132 mmol/L (137-145); Total Protein 7.1 g/dL (6.3-8.2)
[2017-04-17 18:32] LABS: Glucose 582 mg/dL (65-100)
[2017-04-17 18:51] LABS: Bacteria,Urine 1+ /HPF (Negative); Bilirubin,Urine NEG (Negative); Blood,Urine NEG (Negative); Ketones,Urine TR mg/dL (Negative); Leukocyte Esterase,Urine TR (Negative); Mucus,Urine FEW /HPF; Nitrite,Urine NEG (Negative); Protein,Urine <15 mg/dL mg/dL (Negative); Urobilinogen,Urine < 2.0 mg/dL (<2.0)
[2017-04-17] MEDS ORDERED: NACL 0.9% 1000 ML 1,000 ML ONE (22:36)
[2017-04-17] MEDS ORDERED: NACL 0.9% 1000 ML 1,000 ML IV ONE ×2 (22:43→22:51)
[2017-04-17] MEDS ORDERED: ZOFRAN ONE (22:46)
[2017-04-17] MEDS ORDERED: ZOFRAN IV ONE (22:51)
[2017-04-17] MEDS ORDERED: ZITHROMAX 500 MG in NACL 0.9% 250ML 250 ML IV ONE (22:51)
[2017-04-17] MEDS ORDERED: LEVAQUIN 750MG/150ML 750 MG/150 ML BAG IV ONE (22:53)
[2017-04-17] MEDS ORDERED: MORPHINE IV ONE (23:50)
[2017-04-17] MEDS ORDERED: MORPHINE ONE (23:56)
--- NOTE | 2017-04-18 01:30 | Emergency Department Report ---
ED General Adult HPI - General Chief complaint: Chest Pain Stated complaint: CHEST PAIN/ ELEVATED BLOOD SUGAR Time Seen by Provider: 04/17/17 17:39 Source: patient Mode of arrival: Ambulatory Limitations: No Limitations - History of Present Illness Initial comments: PATIENT PRESENTED TO THE ER WITH COMPLAIN OF CHEST PAIN ,COUGH AND HIGH BLOOD GLUCOSE, DENIED ANY FEVER. PATIENT STATED THAT SHE HAS BEEN TAKING HER INSULIN SUPPOSED TO BE. -: Gradual Location: chest Radiation: non-radiation Severity scale (0 -10): 8 Quality: aching Improves with: none Associated Symptoms: chest pain, cough. denies: confusion, diaphoresis, fever/ chills, loss of appetite, malaise, nausea/vomiting, shortness of breath - Related Data Previous Rx's Medication Instructions Recorded Last Taken Type Gabapentin [Neurontin] 400 mg PO TID #90 capsule 03/25/17 Unknown Rx Insulin Glargine [Lantus VIAL] 18 units SQ BIDDIAB #1 vial 03/25/17 Unknown Rx Insulin Lispro [HumaLOG VIAL] 11 units SQ AC #1 vial 03/25/17 Unknown Rx Ondansetron [Zofran Odt] 4 mg PO QID PRN #20 tab.rapdis 03/25/17 Unknown Rx Zolpidem [Ambien] 10 mg PO QHS #30 tablet 03/25/17 Unknown Rx oxyCODONE /ACETAMINOPHEN [Percocet 1 tab PO Q6HR PRN #24 tablet 03/25/17 Unknown Rx 5/325 mg] HYDROcodone/APAP 5-325 [[place] 1 each PO Q6HR PRN #10 tablet 04/18/17 Unknown Rx 5/325] Levofloxacin [Levaquin TAB] 500 mg PO QDAY #7 tablet 04/18/17 Unknown Rx Allergies Allergy/AdvReac Type Severity Reaction Status Date / Time heparin Allergy Intermediate Hives Verified 03/23/17 13:56 Penicillins Allergy Intermediate Hives Verified 03/23/17 13:56 ketorolac tromethamine Allergy Itching Verified 03/23/17 13:56 [From Toradol] tramadol HCl [From Ultram] Allergy Itching Verified 03/23/17 13:56 ED Review of Systems ROS: Stated complaint: CHEST PAIN/ ELEVATED BLOOD SUGAR Other details as noted in HPI Comment: All other systems reviewed and negative ED Past Medical Hx - Past Medical History Hx Hypertension: No Hx Heart Attack/AMI: No Hx Congestive Heart Failure: No Hx Diabetes: Yes Hx Deep Vein Thrombosis: No Hx Pulmonary Embolism: No Hx Liver Disease: No Hx Sickle Cell Disease: No (Sickle Cell Trait) Hx Arthritis: No Hx Asthma: Yes Hx COPD: No Hx Tuberculosis: No Hx HIV: No Additional medical history: pneumonia. MRSA - Surgical History Hx Coronary Stent: No Hx Open Heart Surgery: No Hx Pacemaker: No Hx Internal Defibrillator: No Hx Cholecystectomy: Yes Hx Appendectomy: No Hx Breast Surgery: No Additional Surgical History: X 2. HERNIA REPAIR - Social History Smoking Status: Current Every Day Smoker Substance Use Type: None - Medications Home Medications: Home Medications Medication Instructions Recorded Confirmed Last Taken Type Gabapentin [Neurontin] 400 mg PO TID #90 capsule 03/25/17 Unknown Rx Insulin Glargine [Lantus VIAL] 18 units SQ BIDDIAB #1 vial 03/25/17 Unknown Rx Insulin Lispro [HumaLOG VIAL] 11 units SQ AC #1 vial 03/25/17 Unknown Rx Ondansetron [Zofran Odt] 4 mg PO QID PRN #20 tab.rapdis 03/25/17 Unknown Rx Zolpidem [Ambien] 10 mg PO QHS #30 tablet 03/25/17 Unknown Rx oxyCODONE /ACETAMINOPHEN [Percocet 1 tab PO Q6HR PRN #24 tablet 03/25/17 Unknown Rx 5/325 mg] HYDROcodone/APAP 5-325 [[place] 1 each PO Q6HR PRN #10 tablet 04/18/17 Unknown Rx 5/325] Levofloxacin [Levaquin TAB] 500 mg PO QDAY #7 tablet 04/18/17 Unknown Rx ED Physical Exam - General Limitations: No Limitations General appearance: alert, in no apparent distress - Head Head exam: Present: atraumatic, normal inspection - Eye Eye exam: Present: normal appearance - ENT ENT exam: Present: normal exam - Neck Neck exam: Present: normal inspection - Respiratory Respiratory exam: Present: normal lung sounds bilaterally, chest wall tenderness. Absent: respiratory distress, wheezes, rales, rhonchi, accessory muscle use, decreased breath sounds, prolonged expiratory - Cardiovascular Cardiovascular Exam: Present: regular rate, normal rhythm, normal heart sounds. Absent: bradycardia, tachycardia, irregular rhythm, systolic murmur, diastolic murmur, rubs, gallop - GI/Abdominal GI/Abdominal exam: Present: soft. Absent: distended, tenderness, guarding, rebound, rigid, normal bowel sounds, diminished bowel sounds, mass, bruit, pulsatile mass - Neurological Exam Neurological exam: Present: alert, oriented X3, CN II-XII intact, normal gait. Absent: motor sensory deficit - Skin Skin exam: Present: warm, dry ED Course Vital Signs 04/17/17 04/17/17 17:41 22:28 Temperature 98.5 F 98.2 F Pulse Rate 86 68 Respiratory 18 16 Rate Blood Pressure 123/86 Blood Pressure 124/85 [Left] O2 Sat by Pulse 97 100 Oximetry - Reevaluation(s) Reevaluation #1: 04/18/17 01:49 PATIENT STATED THAT SHE FEEL MUCH BETTER. HER BLOOD GLUCOSE IS 209. PATIENT STATED THAT SHE WILL FOLLOW UP WITH HER PCP TODAY FOR INSULIN ADJUSTMENT ED Medical Decision Making - Lab Data Result diagrams: 04/17/17 17:47 04/17/17 17:47 Critical care attestation.: If time is entered above; I have spent that time in minutes in the direct care of this critically ill patient, excluding procedure time. ED Disposition Clinical Impression: Hyperglycemia, Acute bronchitis Disposition: DC-01 TO HOME OR SELFCARE Is pt being admited?: No Does the pt Need Aspirin: No Condition: Stable Instructions: Acute Bronchitis (ED), Diabetic Hyperglycemia (ED) Prescriptions: HYDROcodone/APAP 5-325 [[place] 5/325] 1 each PO Q6HR PRN #10 tablet PRN Reason: Pain Levofloxacin [Levaquin TAB] 500 mg PO QDAY #7 tablet Referrals: PRIMARY CARE, [Primary Care Provider] - 3-5 Days
[2017-04-18 03:56] VITALS: BP 108/67
--- NOTE | 2017-04-18 07:57 | XRay Report ---
ROUTINE CHEST, TWO VIEWS: HISTORY: chest pain. The trachea, heart, mediastinal contour, lung corcoran and bony thorax are unremarkable. No significant change since 03/23/17. IMPRESSION: Unremarkable chest x-ray.
== END 2017-04-18 01:50 | disposition home or self-care (01) ==
LOC: ED 17:29
DX: E11.65 Type 2 diabetes mellitus with hyperglycemia (principal); J20.9 Acute bronchitis, unspecified; J45.909 Unspecified asthma, uncomplicated; F17.210 Nicotine dependence, cigarettes, uncomplicated; Z79.4 Long term (current) use of insulin; Z88.0 Allergy status to penicillin; Z88.8 Allergy status to other drugs, medicaments and biological substances; Z88.6 Allergy status to analgesic agent
CPT/HCPCS: 36415; 71020; 80053; 81001; 82805; 82962; 83690; 84484; 84703; 85025; 93005; 93010; 96361; 96365; 96375; 96376; 99284; J1956; J2270; J2405; J7030; J1815

== ENCOUNTER 2017-08-28 15:32 | Inpatient (IN) | payer MEDICARE ==
[2017-08-28 16:13] LABS: Basophils % (Auto) 0.7 % (0.0-1.8); Eosinophils % (Auto) 1.4 % (0.0-4.3); Hematocrit 39.3 % (30.3-42.9); Hemoglobin 12.7 gm/dl (10.1-14.3); Mean Corpuscular HGB Conc 32 % (30-34); Mean Corpuscular Hemoglobin 29 pg (28-32); Mean Corpuscular Volume 90 fl (79-97); Platelet Count 264 K/mm3 (140-440); Red Blood Count 4.36 M/mm3 (3.65-5.03); White Blood Count 5.7 K/mm3 (4.5-11.0)
[2017-08-28 16:30] LABS: Anion Gap 22 mmol/L; BUN/Creatinine Ratio 17; Blood Urea Nitrogen 15 mg/dL (7-17); Calcium 8.5 mg/dL (8.4-10.2); Carbon Dioxide 21 mmol/L (22-30); Chloride 89.8 mmol/L (98-107); Potassium 5.2 mmol/L (3.6-5.0); Sodium 128 mmol/L (137-145)
[2017-08-28 16:41] LABS: Glucose 889 mg/dL (65-100)
[2017-08-28] MEDS ORDERED: ZOFRAN IV ONE (16:43)
[2017-08-28] MEDS ORDERED: NACL 0.9% 1000 ML 1,000 ML IV ONE ×2 (16:43→18:38)
[2017-08-28 17:09] LABS: Bilirubin,Urine Negative (Negative); Blood,Urine Small (Negative); Ketones,Urine Negative (Negative); Leukocyte Esterase,Urine Trace (Negative); Nitrite,Urine Negative (Negative); Protein,Urine <15 mg/dL mg/dL (Negative); Urobilinogen,Urine < 2.0 mg/dL (<2.0)
[2017-08-28] MEDS ORDERED: DILAUDID IV ONE (17:35)
[2017-08-28 17:58] LABS: Creatine Kinase MB 3.5 ng/mL (0.0-4.0)
[2017-08-28 17:59] LABS: Alanine Aminotransferase 20 units/L (7-56); Albumin 3.9 g/dL (3.9-5); Albumin/Globulin Ratio 1.8 %; Alkaline Phosphatase 152 units/L (35-129); Creatine Kinase 68 units/L (30-135); Lipase 61 units/L (13-60); Total Protein 6.1 g/dL (6.3-8.2)
[2017-08-28 18:07] LABS: Bilirubin,Direct < 0.2 mg/dL (0-0.2); Bilirubin,Indirect 0.3 mg/dL
--- NOTE | 2017-08-28 18:13 | Emergency Department Report ---
ED N/V/D HPI - General Chief complaint: Hyperglycemia Stated complaint: COUGH, CHEST PAIN AND HIGH BLOOD SUGAR Time Seen by Provider: 08/28/17 17:01 Source: patient Mode of arrival: Ambulatory Limitations: No Limitations - History of Present Illness Initial comments: 37-year-old female with a past medical history of insulin dependent diabetes, asthma, sickle cell trait, and previous cholecystectomy assessment hospital complaints of elevated glucose the last 2 days, anterior chest pain, nausea and vomiting, and cough productive of yellow sputum. Patient's primary care doctor recently adjusted her insulin. Patient continues to take Lantus 45 units at night and 35 units in the a.m. Her NovoLog was switched from 15 units with each meal to a sliding scale dose. Patient states her typical dose is less than her previous 15 Unit dose based on a sliding scale measurement. Patient complains of anterior sternal chest pain described as sharp, constant, worse with movement and palpation. She denies shortness of breath. Positive cough productive of yellow sputum without fever. Positive nausea and vomiting without abdominal pain. Positive urinary frequency without dysuria. - Related Data Previous Rx's Medication Instructions Recorded Last Taken Type Gabapentin [Neurontin] 400 mg PO TID #90 capsule 03/25/17 Unknown Rx Insulin Glargine [Lantus VIAL] 18 units SQ BIDDIAB #1 vial 03/25/17 Unknown Rx Insulin Lispro [HumaLOG VIAL] 11 units SQ AC #1 vial 03/25/17 Unknown Rx Ondansetron [Zofran Odt] 4 mg PO QID PRN #20 tab.rapdis 03/25/17 Unknown Rx Zolpidem [Ambien] 10 mg PO QHS #30 tablet 03/25/17 Unknown Rx oxyCODONE /ACETAMINOPHEN [Percocet 1 tab PO Q6HR PRN #24 tablet 03/25/17 Unknown Rx 5/325 mg] HYDROcodone/APAP 5-325 [[place] 1 each PO Q6HR PRN #10 tablet 04/18/17 Unknown Rx 5/325] Levofloxacin [Levaquin TAB] 500 mg PO QDAY #7 tablet 04/18/17 Unknown Rx Acetaminophen [Tylenol Arthritis] 650 mg PO Q6HR PRN #30 tablet.er 08/09/17 Unknown Rx Albuterol Sulfate [Proair 90 mcg IH Q4HR PRN #2 aer.pow.ba 08/09/17 Unknown Rx Respiclick] Azithromycin 250 mg PO QDAY #6 tablet 08/09/17 Unknown Rx Benzonatate [Tessalon Perles] 100 mg PO Q8HR PRN #30 capsule 08/09/17 Unknown Rx Fluticasone [Flonase] 1 spray NS QDAY #1 bottle 08/09/17 Unknown Rx Ipratropium [place] [Atrovent Hfa] 12.9 gm IH Q4HR #2 hfa.aer.ad 08/09/17 Unknown Rx Allergies Allergy/AdvReac Type Severity Reaction Status Date / Time heparin Allergy Intermediate Hives Verified 08/09/17 07:40 Penicillins Allergy Intermediate Hives Verified 08/09/17 07:40 ketorolac tromethamine Allergy Itching Verified 08/09/17 07:40 [From Toradol] tramadol HCl [From Ultram] Allergy Itching Verified 08/09/17 07:40 ED Review of Systems ROS: Stated complaint: COUGH, CHEST PAIN AND HIGH BLOOD SUGAR Other details as noted in HPI Comment: All other systems reviewed and negative Other: Constitutional: No fevers chills Eyes: No eye pain visual changes ENT: No ear pain or throat pain Neck: Denies pain Respiratory: Denies cough wheezing shortness of breath Cardiovascular: Denies palpitations, syncope GI: Denies abdominal pain : Denies dysuria Musculoskeletal: Denies back pain Skin: Denies rash, lesions, erythema Neurologic: Denies headache, numbness, weakness Psychiatric: Denies suicidal ideation, hallucinations ED Past Medical Hx - Past Medical History Previous Medical History?: Yes Hx Hypertension: No Hx Heart Attack/AMI: No Hx Congestive Heart Failure: No Hx Diabetes: Yes Hx Deep Vein Thrombosis: No Hx Pulmonary Embolism: No Hx Liver Disease: No Hx Sickle Cell Disease: No (Sickle Cell Trait) Hx Arthritis: No Hx Asthma: Yes Hx COPD: No Hx Tuberculosis: No Hx HIV: No Additional medical history: pneumonia. MRSA - Surgical History Past Surgical History?: Yes Hx Coronary Stent: No Hx Open Heart Surgery: No Hx Pacemaker: No Hx Internal Defibrillator: No Hx Cholecystectomy: Yes Hx Appendectomy: No Hx Breast Surgery: No Additional Surgical History: X 2. HERNIA REPAIR - Social History Smoking Status: Never Smoker Substance Use Type: None - Medications Home Medications: Home Medications Medication Instructions Recorded Confirmed Last Taken Type Gabapentin [Neurontin] 400 mg PO TID #90 capsule 03/25/17 Unknown Rx Insulin Glargine [Lantus VIAL] 18 units SQ BIDDIAB #1 vial 03/25/17 Unknown Rx Insulin Lispro [HumaLOG VIAL] 11 units SQ AC #1 vial 03/25/17 Unknown Rx Ondansetron [Zofran Odt] 4 mg PO QID PRN #20 tab.rapdis 03/25/17 Unknown Rx Zolpidem [Ambien] 10 mg PO QHS #30 tablet 03/25/17 Unknown Rx oxyCODONE /ACETAMINOPHEN [Percocet 1 tab PO Q6HR PRN #24 tablet 03/25/17 Unknown Rx 5/325 mg] HYDROcodone/APAP 5-325 [[place] 1 each PO Q6HR PRN #10 tablet 04/18/17 Unknown Rx 5/325] Levofloxacin [Levaquin TAB] 500 mg PO QDAY #7 tablet 04/18/17 Unknown Rx Acetaminophen [Tylenol Arthritis] 650 mg PO Q6HR PRN #30 tablet.er 08/09/17 Unknown Rx Albuterol Sulfate [Proair 90 mcg IH Q4HR PRN #2 aer.pow.ba 08/09/17 Unknown Rx Respiclick] Azithromycin 250 mg PO QDAY #6 tablet 08/09/17 Unknown Rx Benzonatate [Tessalon Perles] 100 mg PO Q8HR PRN #30 capsule 08/09/17 Unknown Rx Fluticasone [Flonase] 1 spray NS QDAY #1 bottle 08/09/17 Unknown Rx Ipratropium [place] [Atrovent Hfa] 12.9 gm IH Q4HR #2 hfa.aer.ad 08/09/17 Unknown Rx ED Physical Exam - General Limitations: No Limitations - Other Other exam information: General: No limitations, patient is alert in no acute distress Head exam: Atraumatic, normocephalic Eyes exam: Normal appearance ENT: Dry mucous membranes, no thrush Neck exam: Normal inspection, full range of motion, no meningismus nontender Respiratory exam: Clear to auscultation bilateral, no wheezes, rales, crackles Cardiovascular: Normal rate and rhythm, normal heart sounds Abdomen: Soft, nondistended, and nontender, with normal bowel sounds, no rebound, or guarding Extremity: Full range of motion normal inspection no deformity Back: Normal Inspection, full range of motion, no tenderness Neurologic: Alert, oriented x3, cranial nerves intact, no motor or sensory deficit Psychiatric: normal affect, normal mood Skin: Warm, dry, intact ED Course Vital Signs 08/28/17 08/28/17 08/28/17 15:40 17:55 17:58 Temperature 98.9 F Pulse Rate 83 81 Respiratory 16 19 17 Rate Blood Pressure 121/92 118/79 O2 Sat by Pulse 99 100 100 Oximetry - Reevaluation(s) Reevaluation #1: 08/28/17 19:23 Patient feeling better after Dilaudid, Zofran, normal saline. Regular insulin also given ED Medical Decision Making - Lab Data Result diagrams: 08/28/17 15:54 08/28/17 15:59 Lab Results 08/28/17 08/28/17 08/28/17 Range/Units 15:39 15:54 15:59 WBC 5.7 (4.5-11.0) K/mm3 RBC 4.36 (3.65-5.03) M/mm3 Hgb 12.7 (10.1-14.3) gm/dl Hct 39.3 (30.3-42.9) % MCV 90 (79-97) fl MCH 29 (28-32) pg MCHC 32 (30-34) % RDW 15.0 (13.2-15.2) % Plt Count 264 (140-440) K/mm3 Lymph % (Auto) 34.2 (13.4-35.0) % [place] % (Auto) 4.6 (0.0-7.3) % Eos % (Auto) 1.4 (0.0-4.3) % Baso % (Auto) 0.7 (0.0-1.8) % Lymph # 2.0 (1.2-5.4) K/mm3 [place] # 0.3 (0.0-0.8) K/mm3 Eos # 0.1 (0.0-0.4) K/mm3 Baso # 0.0 (0.0-0.1) K/mm3 Seg Neutrophils % 59.1 (40.0-70.0) % Seg Neutrophils # 3.4 (1.8-7.7) K/mm3 VBG pH (7.320-7.420) Sodium 128 L (137-145) mmol/L Potassium 5.2 H (3.6-5.0) mmol/L Chloride 89.8 L (98-107) mmol/L Carbon Dioxide 21 L (22-30) mmol/L Anion Gap 22 mmol/L BUN 15 (7-17) mg/dL Creatinine 0.9 (0.7-1.2) mg/dL Estimated GFR > 60 ml/min BUN/Creatinine Ratio 17 % Glucose 889 H* (65-100) mg/dL POC Glucose > 500 H (70-105) Calcium 8.5 (8.4-10.2) mg/dL Total Bilirubin (0.1-1.2) mg/dL Direct Bilirubin (0-0.2) mg/dL Indirect Bilirubin mg/dL AST (5-40) units/L ALT (7-56) units/L Alkaline Phosphatase (35-129) units/L Total Creatine Kinase (30-135) units/L CK-MB (CK-2) (0.0-4.0) ng/mL CK-MB (CK-2) Rel Index (0-4) Troponin T (0.00-0.029) ng/mL Total Protein (6.3-8.2) g/dL Albumin (3.9-5) g/dL Albumin/Globulin Ratio % Lipase (13-60) units/L Urine Color (Yellow) Urine Turbidity (Clear) Urine pH (5.0-7.0) Ur Specific [place] (1.003-1.030) Urine Protein (Negative) mg/dL Urine Glucose (UA) (Negative) mg/dL Urine Ketones (Negative) mg/dL Urine Blood (Negative) Urine Nitrite (Negative) Urine Bilirubin (Negative) Urine Urobilinogen (<2.0) mg/dL Ur Leukocyte Esterase (Negative) Urine WBC (Auto) (0.0-6.0) /HPF Urine RBC (Auto) (0.0-6.0) /HPF U Epithel Cells (Auto) (0-13.0) /HPF Urine HCG, Qual (Negative) 08/28/17 08/28/17 08/28/17 Range/Units 15:59 16:05 Unknown WBC (4.5-11.0) K/mm3 RBC (3.65-5.03) M/mm3 Hgb (10.1-14.3) gm/dl Hct (30.3-42.9) % MCV (79-97) fl MCH (28-32) pg MCHC (30-34) % RDW (13.2-15.2) % Plt Count (140-440) K/mm3 Lymph % (Auto) (13.4-35.0) % [place] % (Auto) (0.0-7.3) % Eos % (Auto) (0.0-4.3) % Baso % (Auto) (0.0-1.8) % Lymph # (1.2-5.4) K/mm3 [place] # (0.0-0.8) K/mm3 Eos # (0.0-0.4) K/mm3 Baso # (0.0-0.1) K/mm3 Seg Neutrophils % (40.0-70.0) % Seg Neutrophils # (1.8-7.7) K/mm3 VBG pH 7.313 L (7.320-7.420) Sodium (137-145) mmol/L Potassium (3.6-5.0) mmol/L Chloride (98-107) mmol/L Carbon Dioxide (22-30) mmol/L Anion Gap mmol/L BUN (7-17) mg/dL Creatinine (0.7-1.2) mg/dL Estimated GFR ml/min BUN/Creatinine Ratio % Glucose (65-100) mg/dL POC Glucose (70-105) Calcium (8.4-10.2) mg/dL Total Bilirubin 0.50 (0.1-1.2) mg/dL Direct Bilirubin < 0.2 (0-0.2) mg/dL Indirect Bilirubin 0.3 mg/dL AST 18 (5-40) units/L ALT 20 (7-56) units/L Alkaline Phosphatase 152 H (35-129) units/L Total Creatine Kinase 68 (30-135) units/L CK-MB (CK-2) 3.5 (0.0-4.0) ng/mL CK-MB (CK-2) Rel Index 5.1 H (0-4) Troponin T < 0.010 (0.00-0.029) ng/mL Total Protein 6.1 L (6.3-8.2) g/dL Albumin 3.9 (3.9-5) g/dL Albumin/Globulin Ratio 1.8 % Lipase 61 H (13-60) units/L Urine Color Yellow (Yellow) Urine Turbidity Clear (Clear) Urine pH 7.0 (5.0-7.0) Ur Specific [place] 1.005 (1.003-1.030) Urine Protein <15 mg/dl (Negative) mg/dL Urine Glucose (UA) >500 (Negative) mg/dL Urine Ketones Negative (Negative) mg/dL Urine Blood Small A (Negative) Urine Nitrite Negative (Negative) Urine Bilirubin Negative (Negative) Urine Urobilinogen < 2.0 (<2.0) mg/dL Ur Leukocyte Esterase Trace (Negative) Urine WBC (Auto) 2.0 (0.0-6.0) /HPF Urine RBC (Auto) 3.0 (0.0-6.0) /HPF U Epithel Cells (Auto) 5.0 (0-13.0) /HPF Urine HCG, Qual (Negative) 08/28/17 Range/Units Unknown WBC (4.5-11.0) K/mm3 RBC (3.65-5.03) M/mm3 Hgb (10.1-14.3) gm/dl Hct (30.3-42.9) % MCV (79-97) fl MCH (28-32) pg MCHC (30-34) % RDW (13.2-15.2) % Plt Count (140-440) K/mm3 Lymph % (Auto) (13.4-35.0) % [place] % (Auto) (0.0-7.3) % Eos % (Auto) (0.0-4.3) % Baso % (Auto) (0.0-1.8) % Lymph # (1.2-5.4) K/mm3 [place] # (0.0-0.8) K/mm3 Eos # (0.0-0.4) K/mm3 Baso # (0.0-0.1) K/mm3 Seg Neutrophils % (40.0-70.0) % Seg Neutrophils # (1.8-7.7) K/mm3 VBG pH (7.320-7.420) Sodium (137-145) mmol/L Potassium (3.6-5.0) mmol/L Chloride (98-107) mmol/L Carbon Dioxide (22-30) mmol/L Anion Gap mmol/L BUN (7-17) mg/dL Creatinine (0.7-1.2) mg/dL Estimated GFR ml/min BUN/Creatinine Ratio % Glucose (65-100) mg/dL POC Glucose (70-105) Calcium (8.4-10.2) mg/dL Total Bilirubin (0.1-1.2) mg/dL Direct Bilirubin (0-0.2) mg/dL Indirect Bilirubin mg/dL AST (5-40) units/L ALT (7-56) units/L Alkaline Phosphatase (35-129) units/L Total Creatine Kinase (30-135) units/L CK-MB (CK-2) (0.0-4.0) ng/mL CK-MB (CK-2) Rel Index (0-4) Troponin T (0.00-0.029) ng/mL Total Protein (6.3-8.2) g/dL Albumin (3.9-5) g/dL Albumin/Globulin Ratio % Lipase (13-60) units/L Urine Color (Yellow) Urine Turbidity (Clear) Urine pH (5.0-7.0) Ur Specific [place] (1.003-1.030) Urine Protein (Negative) mg/dL Urine Glucose (UA) (Negative) mg/dL Urine Ketones (Negative) mg/dL Urine Blood (Negative) Urine Nitrite (Negative) Urine Bilirubin (Negative) Urine Urobilinogen (<2.0) mg/dL Ur Leukocyte Esterase (Negative) Urine WBC (Auto) (0.0-6.0) /HPF Urine RBC (Auto) (0.0-6.0) /HPF U Epithel Cells (Auto) (0-13.0) /HPF Urine HCG, Qual Negative (Negative) - EKG Data -: EKG Interpreted by Me ( ) EKG shows normal: sinus rhythm, axis (qrs 17), QRS complexes (72), ST-T waves ( lat t wave lat, lvh with repol) Rate: normal - EKG Data When compared to previous EKG there are: no significant change Interpretation: no acute changes - Radiology Data Radiology results: image reviewed (cxr: naf) - Medical Decision Making Patient has reproducible chest wall pain. poorly controlled glucose secondary to medication change. Glucose improved with initial IV insulin and therefore insulin drip canceled by hospitalist and patient will receive further IV boluses. Symptoms improving with ED treatment included Dilaudid and Zofran - Differential Diagnosis DKA, gastritis, pancreatitis, dehydration, IN, costochondritis Critical Care Time: No Critical care attestation.: If time is entered above; I have spent that time in minutes in the direct care of this critically ill patient, excluding procedure time. ED Disposition Clinical Impression: DKA (diabetic ketoacidoses), Chest wall pain, Vomiting, Hyperkalemia Disposition: OP ADMIT IP TO THIS HOSP Is pt being admited?: Yes Condition: Stable Time of Disposition: 18:37 (Dr dent/hosp)
[2017-08-28] MEDS ORDERED: D50W (25GM) Syringe IV PRN (18:38)
[2017-08-28] MEDS ORDERED: NovoLIN R 100 UNITS in NACL 0.9% 99 ML IV SCH (19:30)
--- NOTE | 2017-08-28 19:59 | History and Physical Report ---
History of Present Illness Date of examination: 08/28/17 Date of admission: 08/28/17 Chief complaint: CC High Blood glucose levels History of present illness: - History of Present Illness Initial comments: 37-year-old female with a past medical history of insulin dependent diabetes, asthma, sickle cell trait, and previous cholecystectomy assessment hospital complaints of elevated glucose the last 2 days, anterior chest pain, nausea and vomiting, and cough productive of yellow sputum. Patient's primary care doctor recently adjusted her insulin. Patient continues to take Lantus 45 units at night and 35 units in the a.m. Her NovoLog was switched from 15 units with each meal to a sliding scale dose. Patient states her typical dose is less than her previous 15 Unit dose based on a sliding scale measurement. Patient complains of anterior sternal chest pain described as sharp, constant, worse with movement and palpation. She denies shortness of breath. Positive cough productive of yellow sputum without fever. Positive nausea and vomiting without abdominal pain. Positive urinary frequency without dysuria. -Past Medical History Previous Medical History?: Yes Hx Hypertension: No Hx Heart Attack/AMI: No Hx Congestive Heart Failure: No Hx Diabetes: Yes Hx Deep Vein Thrombosis: No Hx Pulmonary Embolism: No Hx Liver Disease: No Hx Sickle Cell Disease: No (Sickle Cell Trait) Hx Arthritis: No Hx Asthma: Yes Hx COPD: No Hx Tuberculosis: No Hx HIV: No Additional medical history: pneumonia. MRSA Surgical History Past Surgical History?: Yes Hx Coronary Stent: No Hx Open Heart Surgery: No Hx Pacemaker: No Hx Internal Defibrillator: No Hx Cholecystectomy: Yes Hx Appendectomy: No Hx Breast Surgery: No Additional Surgical History: X 2. HERNIA REPAIR - Social History Smoking Status: Never Smoker Substance Use Type: None - Medications Home Medications: Home Medications Medication Instructions Recorded Confirmed Last Taken Type Gabapentin [Neurontin] 400 mg PO TID #90 capsule 03/25/17 Unknown Rx Insulin Glargine [Lantus VIAL] 18 units SQ BIDDIAB #1 vial 03/25/17 Unknown Rx Insulin Lispro [HumaLOG VIAL] 11 units SQ AC #1 vial 03/25/17 Unknown Rx Ondansetron [Zofran Odt] 4 mg PO QID PRN #20 tab.rapdis 03/25/17 Unknown Rx Zolpidem [Ambien] 10 mg PO QHS #30 tablet 03/25/17 Unknown Rx oxyCODONE /ACETAMINOPHEN [Percocet 1 tab PO Q6HR PRN #24 tablet 03/25/17 Unknown Rx 5/325 mg] HYDROcodone/APAP 5-325 [[place] 1 each PO Q6HR PRN #10 tablet 04/18/17 Unknown Rx 5/325] Levofloxacin [Levaquin TAB] 500 mg PO QDAY #7 tablet 04/18/17 Unknown Rx Acetaminophen [Tylenol Arthritis] 650 mg PO Q6HR PRN #30 tablet.er 08/09/17 Unknown Rx Albuterol Sulfate [Proair 90 mcg IH Q4HR PRN #2 aer.pow.ba 08/09/17 Unknown Rx Respiclick] Azithromycin 250 mg PO QDAY #6 tablet 08/09/17 Unknown Rx Benzonatate [Tessalon Perles] 100 mg PO Q8HR PRN #30 capsule 08/09/17 Unknown Rx Fluticasone [Flonase] 1 spray NS QDAY #1 bottle 08/09/17 Unknown Rx Ipratropium [place] [Atrovent Hfa] 12.9 gm IH Q4HR #2 hfa.aer.ad 08/09/17 Unknown Rx Review of Systems ROS: Stated complaint: COUGH, CHEST PAIN AND HIGH BLOOD SUGAR Other details as noted in HPI Comment: All other systems reviewed and negative Other: Constitutional: No fevers chills Eyes: No eye pain visual changes ENT: No ear pain or throat pain Neck: Denies pain Respiratory: Denies cough wheezing shortness of breath Cardiovascular: Denies palpitations, syncope GI: Denies abdominal pain : Denies dysuria Musculoskeletal: Denies back pain Skin: Denies rash, lesions, erythema Neurologic: Denies headache, numbness, weakness Psychiatric: Denies suicidal ideation, hallucinations Medications and Allergies Allergies Allergy/AdvReac Type Severity Reaction Status Date / Time heparin Allergy Intermediate Hives Verified 08/09/17 07:40 Penicillins Allergy Intermediate Hives Verified 08/09/17 07:40 ketorolac tromethamine Allergy Itching Verified 08/09/17 07:40 [From Toradol] tramadol HCl [From Ultram] Allergy Itching Verified 08/09/17 07:40 Home Medications Medication Instructions Recorded Confirmed Last Taken Type Gabapentin [Neurontin] 400 mg PO TID #90 capsule 03/25/17 08/28/17 Unknown Rx Zolpidem [Ambien] 10 mg PO QHS #30 tablet 03/25/17 08/28/17 Unknown Rx Albuterol Sulfate [Proair 90 mcg IH Q4HR PRN #2 aer.pow.ba 08/09/17 08/28/17 Unknown Rx Respiclick] Ipratropium [place] [Atrovent Hfa] 12.9 gm IH Q4HR #2 hfa.aer.ad 08/09/17 Unknown Rx Insulin Aspart [NovoLOG Flexpen] 0 units SQ AC 08/28/17 08/28/17 Unknown History Insulin Glargine,Hum.rec.anlog 80 unit SUB-Q DAILY 08/28/17 08/28/17 Unknown History [Lantus Solostar] Ondansetron [Zofran TAB] 4 mg PO Q8HR PRN 08/28/17 08/28/17 Unknown History Oxycodone HCl/Acetaminophen 1 tab PO Q8H PRN 08/28/17 08/28/17 Unknown History [Percocet 7.5/325 mg] Valacyclovir HCl [Valtrex] 1,000 mg PO BID 08/28/17 08/28/17 Unknown History Active Meds: Active Medications Dextrose (D50w (25gm) Syringe) 0 ml IV PRN PRN PRN Reason: Hypoglycemia Insulin Human Regular 100 (units/ Sodium Chloride) 100 mls @ 1 mls/hr IV TITR SHANELL; 1 UNITS/HR PRN Reason: Protocol Exam - Constitutional Vitals: Temp Pulse Resp BP Pulse Ox 98.9 F 81 17 118/79 100 08/28/17 15:40 08/28/17 17:58 08/28/17 17:58 08/28/17 17:58 08/28/17 17:58 General appearance: Present: no acute distress, well-nourished - EENT Eyes: Present: PERRL ENT: hearing intact, clear oral mucosa - Neck Neck: Present: supple, normal ROM - Respiratory Respiratory effort: normal Respiratory: bilateral: CTA - Cardiovascular Heart rate: 80 Rhythm: regular Heart Sounds: Present: S1 & S2. Absent: rub, click - Extremities Extremities: no ischemia, pulses intact, pulses symmetrical, No edema Peripheral Pulses: within normal limits - Abdominal General gastrointestinal: Present: soft, non-tender, non-distended, normal bowel sounds Female genitourinary: Present: normal - Integumentary Integumentary: Present: clear, warm, dry - Musculoskeletal Musculoskeletal: gait normal, strength equal bilaterally - Psychiatric Psychiatric: appropriate mood/affect, intact judgment & insight - Neurologic Neurologic: CNII-XII intact, moves all extremities - Allied Health Allied health notes reviewed: nursing Results - Labs CBC & Chem 7: 08/28/17 15:54 08/29/17 00:19 Labs: Laboratory Last Values WBC 5.7 K/mm3 (4.5-11.0) 08/28/17 15:54 RBC 4.36 M/mm3 (3.65-5.03) 08/28/17 15:54 Hgb 12.7 gm/dl (10.1-14.3) 08/28/17 15:54 Hct 39.3 % (30.3-42.9) 08/28/17 15:54 MCV 90 fl (79-97) 08/28/17 15:54 MCH 29 pg (28-32) 08/28/17 15:54 MCHC 32 % (30-34) 08/28/17 15:54 RDW 15.0 % (13.2-15.2) 08/28/17 15:54 Plt Count 264 K/mm3 (140-440) 08/28/17 15:54 Lymph % (Auto) 34.2 % (13.4-35.0) 08/28/17 15:54 [place] % (Auto) 4.6 % (0.0-7.3) 08/28/17 15:54 Eos % (Auto) 1.4 % (0.0-4.3) 08/28/17 15:54 Baso % (Auto) 0.7 % (0.0-1.8) 08/28/17 15:54 Lymph # 2.0 K/mm3 (1.2-5.4) 08/28/17 15:54 [place] # 0.3 K/mm3 (0.0-0.8) 08/28/17 15:54 Eos # 0.1 K/mm3 (0.0-0.4) 08/28/17 15:54 Baso # 0.0 K/mm3 (0.0-0.1) 08/28/17 15:54 Seg Neutrophils % 59.1 % (40.0-70.0) 08/28/17 15:54 Seg Neutrophils # 3.4 K/mm3 (1.8-7.7) 08/28/17 15:54 VBG pH 7.313 (7.320-7.420) L 08/28/17 15:59 Sodium 128 mmol/L (137-145) L 08/28/17 15:59 Potassium 5.2 mmol/L (3.6-5.0) H 08/28/17 15:59 Chloride 89.8 mmol/L (98-107) L 08/28/17 15:59 Carbon Dioxide 21 mmol/L (22-30) L 08/28/17 15:59 Anion Gap 22 mmol/L 08/28/17 15:59 BUN 15 mg/dL (7-17) 08/28/17 15:59 Creatinine 0.9 mg/dL (0.7-1.2) 08/28/17 15:59 Estimated GFR > 60 ml/min 08/28/17 15:59 BUN/Creatinine Ratio 17 % 08/28/17 15:59 Glucose 889 mg/dL (65-100) H* 08/28/17 15:59 POC Glucose 365 (70-105) H 08/28/17 18:48 Calcium 8.5 mg/dL (8.4-10.2) 08/28/17 15:59 Total Bilirubin 0.50 mg/dL (0.1-1.2) 08/28/17 Unknown Direct Bilirubin < 0.2 mg/dL (0-0.2) 08/28/17 Unknown Indirect Bilirubin 0.3 mg/dL 08/28/17 Unknown AST 18 units/L (5-40) 08/28/17 Unknown ALT 20 units/L (7-56) 08/28/17 Unknown Alkaline Phosphatase 152 units/L (35-129) H 08/28/17 Unknown Total Creatine Kinase 68 units/L (30-135) 08/28/17 Unknown CK-MB (CK-2) 3.5 ng/mL (0.0-4.0) 08/28/17 Unknown CK-MB (CK-2) Rel Index 5.1 (0-4) H 08/28/17 Unknown Troponin T < 0.010 ng/mL (0.00-0.029) 08/28/17 Unknown Total Protein 6.1 g/dL (6.3-8.2) L 08/28/17 Unknown Albumin 3.9 g/dL (3.9-5) 08/28/17 Unknown Albumin/Globulin Ratio 1.8 % 08/28/17 Unknown Lipase 61 units/L (13-60) H 08/28/17 Unknown Urine Color Yellow (Yellow) 08/28/17 16:05 Urine Turbidity Clear (Clear) 08/28/17 16:05 Urine pH 7.0 (5.0-7.0) 08/28/17 16:05 Ur Specific [place] 1.005 (1.003-1.030) 08/28/17 16:05 Urine Protein <15 mg/dl mg/dL (Negative) 08/28/17 16:05 Urine Glucose (UA) >500 mg/dL (Negative) 08/28/17 16:05 Urine Ketones Negative mg/dL (Negative) 08/28/17 16:05 Urine Blood Small (Negative) A 08/28/17 16:05 Urine Nitrite Negative (Negative) 08/28/17 16:05 Urine Bilirubin Negative (Negative) 08/28/17 16:05 Urine Urobilinogen < 2.0 mg/dL (<2.0) 08/28/17 16:05 Ur Leukocyte Esterase Trace (Negative) 08/28/17 16:05 Urine WBC (Auto) 2.0 /HPF (0.0-6.0) 08/28/17 16:05 Urine RBC (Auto) 3.0 /HPF (0.0-6.0) 08/28/17 16:05 U Epithel Cells (Auto) 5.0 /HPF (0-13.0) 08/28/17 16:05 Urine HCG, Qual Negative (Negative) 08/28/17 Unknown Short CBC 08/28/17 Range/Units 15:54 WBC 5.7 (4.5-11.0) K/mm3 Hgb 12.7 (10.1-14.3) gm/dl Hct 39.3 (30.3-42.9) % Plt Count 264 (140-440) K/mm3 BMP 08/28/17 08/28/17 08/28/17 15:59 21:09 22:12 Sodium 128 L 140 D 139 Potassium 5.2 H 4.8 4.5 Chloride 89.8 L 101.6 100.6 Carbon Dioxide 21 L 25 25 BUN 15 12 12 Creatinine 0.9 0.7 0.7 Glucose 889 H* 197 H 198 H Calcium 8.5 8.0 L 7.9 L 08/29/17 00:19 Sodium 138 Potassium 4.3 Chloride 103.3 Carbon Dioxide 21 L BUN 10 Creatinine 0.5 L Glucose 318 H Calcium 7.7 L Cardiac Enzymes 08/28/17 Range/Units Unknown Total Creatine Kinase 68 (30-135) units/L CK-MB (CK-2) 3.5 (0.0-4.0) ng/mL Troponin T < 0.010 (0.00-0.029) ng/mL Liver Function 08/28/17 Range/Units Unknown Total Bilirubin 0.50 (0.1-1.2) mg/dL Direct Bilirubin < 0.2 (0-0.2) mg/dL AST 18 (5-40) units/L ALT 20 (7-56) units/L Alkaline Phosphatase 152 H (35-129) units/L Albumin 3.9 (3.9-5) g/dL Urine 08/28/17 Range/Units 16:05 Urine Color Yellow (Yellow) Urine pH 7.0 (5.0-7.0) Ur Specific [place] 1.005 (1.003-1.030) Urine Protein <15 mg/dl (Negative) mg/dL Urine Glucose (UA) >500 (Negative) mg/dL - Imaging and Cardiology EKG: report reviewed (NSR 80 /min LVH) Chest x-ray: report reviewed (NAF) Assessment and Plan Advance Directives: Yes (FC) VTE prophylaxis?: Chemical Plan of care discussed with patient/family: Yes - Patient Problems (1) Hyperosmolar non-ketotic state in patient with type 2 diabetes mellitus Current Visit: Yes Status: Acute Plan to address problem: Patients BG has improved dramatically in the ED IV fluids and Frequent high dose insulin per protocol Patient to be put back on Reg INsulin 15 to 20 units before each meal Documented as DKA by Ed but no ketones in urine. (2) COPD (chronic obstructive pulmonary disease) Current Visit: Yes Status: Chronic Qualifiers: COPD type: C Chronic bronchitis type: C Emphysema type: unspecified Qualified Code(s): J43.9 - Emphysema, unspecified Plan to address problem: Cont Duonebs (3) Peripheral neuropathy Current Visit: Yes Status: Chronic Qualifiers: Peripheral neuropathy type: polyneuropathy, unspecified Qualified Code(s): G62.9 - Polyneuropathy, unspecified Plan to address problem: Cont Gabapentin (4) DVT prophylaxis Current Visit: Yes Status: Chronic Plan to address problem: On Lovenox
[2017-08-28] MEDS ORDERED: PERCOCET 5/325 PO PRN (20:01)
[2017-08-28] MEDS ORDERED: TYLENOL PO PRN (20:01)
[2017-08-28] MEDS ORDERED: MILK OF MAGNESIA PO PRN (20:01)
[2017-08-28] MEDS ORDERED: DULCOLAX PR PRN (20:01)
[2017-08-28] MEDS ORDERED: NON-FORMULARY (Albuterol Sulfate [Proair Respiclick] 90 MCG) IH PRN (20:11)
[2017-08-28] MEDS ORDERED: PROVENTIL IH PRN (20:29)
[2017-08-28 21:41] LABS: Anion Gap 18 mmol/L; BUN/Creatinine Ratio 17; Blood Urea Nitrogen 12 mg/dL (7-17); Carbon Dioxide 25 mmol/L (22-30); Chloride 101.6 mmol/L (98-107); Glucose 197 mg/dL (65-100); Potassium 4.8 mmol/L (3.6-5.0); Sodium 140 mmol/L (137-145)
[2017-08-28] MEDS: AMBIEN PO SCH (21:49)
[2017-08-28] MEDS ORDERED: NON-FORMULARY (Insulin Glargine,Hum.Rec.Anlog [Lantus Solostar] 40 UNIT) SUB-Q SCH (22:00)
[2017-08-28] MEDS ORDERED: NON-FORMULARY (Ipratropium Bromide [Atrovent Hfa] 12.9 GM) IH SCH (22:00)
[2017-08-28 22:43] LABS: Anion Gap 18 mmol/L; BUN/Creatinine Ratio 17; Blood Urea Nitrogen 12 mg/dL (7-17); Calcium 7.9 mg/dL (8.4-10.2); Carbon Dioxide 25 mmol/L (22-30); Chloride 100.6 mmol/L (98-107); Glucose 198 mg/dL (65-100); Potassium 4.5 mmol/L (3.6-5.0); Sodium 139 mmol/L (137-145)
[2017-08-29 00:53] LABS: Anion Gap 18 mmol/L; BUN/Creatinine Ratio 20; Blood Urea Nitrogen 10 mg/dL (7-17); Calcium 7.7 mg/dL (8.4-10.2); Carbon Dioxide 21 mmol/L (22-30); Chloride 103.3 mmol/L (98-107); Glucose 318 mg/dL (65-100); Potassium 4.3 mmol/L (3.6-5.0); Sodium 138 mmol/L (137-145)
[2017-08-29] MEDS: LEVEMIR SUB-Q SCH ×2 (01:00→09:11)
[2017-08-29] MEDS: NOVOLOG SUB-Q SCH ×9 (01:01→17:55)
[2017-08-29] MEDS: NACL 0.9% 1000 ML 1,000 ML IV SCH ×2 (01:02→09:06)
[2017-08-29] MEDS: DILAUDID IV PRN ×5 (01:21→20:04)
[2017-08-29] MEDS: ATROVENT IH SCH ×4 (01:40→17:43)
[2017-08-29] MEDS ORDERED: NON-FORMULARY (Insulin Aspart [Novolog Flexpen] 10 UNITS) SQ SCH (07:30)
--- NOTE | 2017-08-29 08:16 | Progress Note ---
Assessment and Plan Assessment and plan: --Hyperosmolar nonketotic state; blood sugars significantly improved --Type 1 diabetes mellitus; uncontrolled Continue Accu-Chek sliding scale coverage and ADA diet Lantus insulin, increase the dose Hemoglobin A1c 13.2, diabetic education --Medical noncompliance; counseling done patient strongly advised to comply with medications and diet ----Pseudohyponatremia secondary to hyperglycemia; corrected --Hyperkalemia; corrected --Diabetic peripheral neuropathy; continue gabapentin --DVT prophylaxis : add Lovenox --DC planning; case management, home health nurse for disease monitoring Closely monitor the patient and I discussed the management as needed Disposition; may be discharged tomorrow if blood sugars are reasonable control History Interval history: Patient was admitted with hyperosmolar hyperglycemia Sugars significantly improved vital signs reviewed Patient has no new complaints Hospitalist Physical - Constitutional Vitals: Temp Pulse Resp BP Pulse Ox 98.9 F 83 20 120/88 100 08/28/17 15:40 08/28/17 20:40 08/29/17 06:59 08/28/17 20:40 08/28/17 20:40 General appearance: Present: no acute distress, well-nourished - EENT Eyes: Present: PERRL, EOM intact - Neck Neck: Present: supple, normal ROM - Respiratory Respiratory effort: normal Respiratory: negative: rales, rhonchi, wheezing - Cardiovascular Rhythm: regular Heart Sounds: Present: S1 & S2 - Extremities Extremities: no ischemia, No edema - Abdominal General gastrointestinal: soft, non-tender, non-distended, normal bowel sounds - Integumentary Integumentary: Present: clear, warm - Psychiatric Psychiatric: appropriate mood/affect, cooperative - Neurologic Neurologic: CNII-XII intact, moves all extremities Results - Labs CBC & Chem 7: 08/28/17 15:54 08/29/17 10:44 Labs: Laboratory Last Values WBC 5.7 K/mm3 (4.5-11.0) 08/28/17 15:54 RBC 4.36 M/mm3 (3.65-5.03) 08/28/17 15:54 Hgb 12.7 gm/dl (10.1-14.3) 08/28/17 15:54 Hct 39.3 % (30.3-42.9) 08/28/17 15:54 MCV 90 fl (79-97) 08/28/17 15:54 MCH 29 pg (28-32) 08/28/17 15:54 MCHC 32 % (30-34) 08/28/17 15:54 RDW 15.0 % (13.2-15.2) 08/28/17 15:54 Plt Count 264 K/mm3 (140-440) 08/28/17 15:54 Lymph % (Auto) 34.2 % (13.4-35.0) 08/28/17 15:54 [place] % (Auto) 4.6 % (0.0-7.3) 08/28/17 15:54 Eos % (Auto) 1.4 % (0.0-4.3) 08/28/17 15:54 Baso % (Auto) 0.7 % (0.0-1.8) 08/28/17 15:54 Lymph # 2.0 K/mm3 (1.2-5.4) 08/28/17 15:54 [place] # 0.3 K/mm3 (0.0-0.8) 08/28/17 15:54 Eos # 0.1 K/mm3 (0.0-0.4) 08/28/17 15:54 Baso # 0.0 K/mm3 (0.0-0.1) 08/28/17 15:54 Seg Neutrophils % 59.1 % (40.0-70.0) 08/28/17 15:54 Seg Neutrophils # 3.4 K/mm3 (1.8-7.7) 08/28/17 15:54 VBG pH 7.313 (7.320-7.420) L 08/28/17 15:59 Sodium 138 mmol/L (137-145) 08/29/17 00:19 Potassium 4.3 mmol/L (3.6-5.0) 08/29/17 00:19 Chloride 103.3 mmol/L (98-107) 08/29/17 00:19 Carbon Dioxide 21 mmol/L (22-30) L 08/29/17 00:19 Anion Gap 18 mmol/L 08/29/17 00:19 BUN 10 mg/dL (7-17) 08/29/17 00:19 Creatinine 0.5 mg/dL (0.7-1.2) L 08/29/17 00:19 Estimated GFR > 60 ml/min 08/29/17 00:19 BUN/Creatinine Ratio 20 % 08/29/17 00:19 Glucose 318 mg/dL (65-100) H 08/29/17 00:19 POC Glucose 158 (70-105) H 08/29/17 06:21 Hemoglobin A1c 13.2 % (4-6) H 08/28/17 21:04 Calcium 7.7 mg/dL (8.4-10.2) L 08/29/17 00:19 Phosphorus 3.90 mg/dL (2.5-4.5) 08/28/17 21:09 Magnesium 2.10 mg/dL (1.7-2.3) 08/28/17 21:09 Total Bilirubin 0.50 mg/dL (0.1-1.2) 08/28/17 Unknown Direct Bilirubin < 0.2 mg/dL (0-0.2) 08/28/17 Unknown Indirect Bilirubin 0.3 mg/dL 08/28/17 Unknown AST 18 units/L (5-40) 08/28/17 Unknown ALT 20 units/L (7-56) 08/28/17 Unknown Alkaline Phosphatase 152 units/L (35-129) H 08/28/17 Unknown Total Creatine Kinase 68 units/L (30-135) 08/28/17 Unknown CK-MB (CK-2) 3.5 ng/mL (0.0-4.0) 08/28/17 Unknown CK-MB (CK-2) Rel Index 5.1 (0-4) H 08/28/17 Unknown Troponin T < 0.010 ng/mL (0.00-0.029) 08/28/17 Unknown Total Protein 6.1 g/dL (6.3-8.2) L 08/28/17 Unknown Albumin 3.9 g/dL (3.9-5) 08/28/17 Unknown Albumin/Globulin Ratio 1.8 % 08/28/17 Unknown Lipase 61 units/L (13-60) H 08/28/17 Unknown Urine Color Yellow (Yellow) 08/28/17 16:05 Urine Turbidity Clear (Clear) 08/28/17 16:05 Urine pH 7.0 (5.0-7.0) 08/28/17 16:05 Ur Specific [place] 1.005 (1.003-1.030) 08/28/17 16:05 Urine Protein <15 mg/dl mg/dL (Negative) 08/28/17 16:05 Urine Glucose (UA) >500 mg/dL (Negative) 08/28/17 16:05 Urine Ketones Negative mg/dL (Negative) 08/28/17 16:05 Urine Blood Small (Negative) A 08/28/17 16:05 Urine Nitrite Negative (Negative) 08/28/17 16:05 Urine Bilirubin Negative (Negative) 08/28/17 16:05 Urine Urobilinogen < 2.0 mg/dL (<2.0) 08/28/17 16:05 Ur Leukocyte Esterase Trace (Negative) 08/28/17 16:05 Urine WBC (Auto) 2.0 /HPF (0.0-6.0) 08/28/17 16:05 Urine RBC (Auto) 3.0 /HPF (0.0-6.0) 08/28/17 16:05 U Epithel Cells (Auto) 5.0 /HPF (0-13.0) 08/28/17 16:05 Urine HCG, Qual Negative (Negative) 08/28/17 Unknown
--- NOTE | 2017-08-29 08:20 | XRay Report ---
PORTABLE CHEST INDICATION: Cough. COMPARISON: 08/09/2017 FINDINGS: Portable, frontal chest radiograph again demonstrates normal cardiomediastinal silhouette and mildly hyperexpanded lungs/COPD without pleural effusions or CHF. Minimal retrocardiac scarring may again be noted. EKG leads. Minimal thoracic dextrocurvature. Cholecystectomy clips. CONCLUSION: No acute chest process or significant interval change, as described. Thank you for the opportunity to participate in this patient's care.
[2017-08-29] MEDS: NEURONTIN PO SCH ×3 (09:07→20:04)
[2017-08-29] MEDS ORDERED: LOVENOX SUB-Q SCH (10:00)
[2017-08-29 11:34] LABS: Anion Gap 15 mmol/L; BUN/Creatinine Ratio 16; Blood Urea Nitrogen 8 mg/dL (7-17); Carbon Dioxide 22 mmol/L (22-30); Chloride 108.1 mmol/L (98-107); Glucose 64 mg/dL (65-100); Potassium 4.5 mmol/L (3.6-5.0); Sodium 141 mmol/L (137-145)
[2017-08-29] MEDS: ZOFRAN IV PRN (20:04)
[2017-08-29] MEDS ORDERED: LEVEMIR SUB-Q SCH (20:26)
[2017-08-29] MEDS: AMBIEN PO SCH (21:47)
[2017-08-29 21:51] LABS: Anion Gap 15 mmol/L; BUN/Creatinine Ratio 22; Blood Urea Nitrogen 13 mg/dL (7-17); Calcium 7.8 mg/dL (8.4-10.2); Carbon Dioxide 25 mmol/L (22-30); Chloride 108.3 mmol/L (98-107); Glucose 73 mg/dL (65-100); Potassium 4.8 mmol/L (3.6-5.0); Sodium 143 mmol/L (137-145)
[2017-08-30] MEDS: LEVEMIR SUB-Q SCH ×2 (00:29→09:46)
[2017-08-30] MEDS: NOVOLOG SUB-Q SCH ×4 (00:29→07:30)
[2017-08-30] MEDS: DILAUDID IV PRN ×3 (00:30→09:45)
[2017-08-30] MEDS: NACL 0.9% 1000 ML 1,000 ML IV SCH ×2 (00:34→08:21)
[2017-08-30] MEDS: ZOFRAN IV PRN (05:10)
[2017-08-30] MEDS ORDERED: NOVOLOG SUB-Q SCH (07:30)
[2017-08-30 07:54] LABS: Anion Gap 13 mmol/L; BUN/Creatinine Ratio 20; Blood Urea Nitrogen 10 mg/dL (7-17); Calcium 7.8 mg/dL (8.4-10.2); Carbon Dioxide 24 mmol/L (22-30); Glucose 106 mg/dL (65-100); Potassium 4.6 mmol/L (3.6-5.0); Sodium 143 mmol/L (137-145)
[2017-08-30] MEDS: NEURONTIN PO SCH (08:25)
[2017-08-30 08:30] VITALS: BP 106/75
--- NOTE | 2017-08-30 10:58 | Discharge Summary ---
Providers - Providers Date of Admission: 08/28/17 18:58 Date of discharge: 08/30/17 Attending physician: MEÑO KEENAN 08/28/17 18:38 Consult to Dietitian/Nutrition [CONS] Routine Physician Instructions: Reason For Exam: DKA Reason for Consult: Nutrition Recommendations Reason for Consult: Diet education Primary care physician: GUM DIPPER Hospitalization Condition: Stable Hospital course: 37-year-old female with a past medical history of insulin dependent diabetes, asthma, sickle cell trait came to hospital complaints of elevated glucose the last 2 days, anterior chest pain, nausea and vomiting, and cough productive of yellow sputum. Her BG was greater than 500 on admission. She was initially placed on insulin drip and provided aggressive IV fluid hydration. Her blood glucose improved significantly. Her insulin doses were adjusted according to her blood glucose level. But patient had couple hypoglycemic episodes. Insulin doses were further adjusted. Patient was encouraged to be compliant with her medications and keep a record of her blood glucose on daily basis. She was planned to discharged home. She left the hospital without taking any prescriptions and stated she has all her medications. She was advised to follow up with her primary care physician in one week. Discharge diagnosis and management: /Hyperosmolar nonketotic state; - improved with insulin /Type 1 diabetes mellitus; uncontrolled Placed on Accu-Chek sliding scale coverage and ADA diet adjusted long-acting insulin dose Hemoglobin A1c 13.2, provided diabetic education /Medical noncompliance; - counseling done patient strongly advised to comply with medications and diet /Hyponatremia secondary to hyperglycemia; corrected with BG improvement /Hyperkalemia; corrected /Diabetic peripheral neuropathy; continue gabapentin /hypoglycemic event likely from insulin overdose, adjusted dose Disposition: DC-01 TO HOME OR SELFCARE Time spent for discharge: 32 minutes Core Measure Documentation - Palliative Care Palliative Care/ Comfort Measures: Not Applicable - Core Measures Any of the following diagnoses?: none Exam - Constitutional Vitals: Temp Pulse Resp BP Pulse Ox 99.0 F 78 20 106/75 98 08/30/17 07:23 08/30/17 07:23 08/30/17 07:23 08/30/17 07:23 08/30/17 07:23 General appearance: Present: no acute distress - EENT Eyes: Present: PERRL ENT: hearing intact, clear oral mucosa - Neck Neck: Present: supple, normal ROM - Respiratory Respiratory effort: normal Respiratory: bilateral: CTA - Cardiovascular Heart Sounds: Present: S1 & S2. Absent: rub, click - Extremities Extremities: pulses symmetrical, No edema Peripheral Pulses: within normal limits - Abdominal General gastrointestinal: Present: soft, non-tender, non-distended, normal bowel sounds Female genitourinary: Present: normal - Integumentary Integumentary: Present: clear, warm, dry - Musculoskeletal Musculoskeletal: gait normal, strength equal bilaterally - Psychiatric Psychiatric: appropriate mood/affect, intact judgment & insight - Neurologic Neurologic: CNII-XII intact, moves all extremities Plan Activity: advance as tolerated Weight Bearing Status: Weight Bear as Tolerated Diet: diabetic Follow up with: PRIMARY CARE, [Primary Care Provider] - 7 Days
[2017-08-30] MEDS ORDERED: LEVEMIR SUB-Q SCH (22:00)
== END 2017-08-30 11:45 | disposition home or self-care (01) | DRG 917 ==
LOC: ED 15:32 → 3A 18:58
PROVIDERS: ADMIT Internal Medicine; ATTEND Internal Medicine
DX: T38.3X1A Poisoning by insulin and oral hypoglycemic [antidiabetic] drugs, accidental (unintentional), initial encounter (principal); E11.00 Type 2 diabetes mellitus with hyperosmolarity without nonketotic hyperglycemic-hyperosmolar coma (NKHHC); E87.1 Hypo-osmolality and hyponatremia; R07.89 Other chest pain; E86.0 Dehydration; J44.9 Chronic obstructive pulmonary disease, unspecified; E87.5 Hyperkalemia; E10.42 Type 1 diabetes mellitus with diabetic polyneuropathy; Z79.4 Long term (current) use of insulin; Z90.49 Acquired absence of other specified parts of digestive tract; Z88.0 Allergy status to penicillin; Z88.5 Allergy status to narcotic agent; Z88.8 Allergy status to other drugs, medicaments and biological substances; Z87.01 Personal history of pneumonia (recurrent); Z91.19 Patient's noncompliance with other medical treatment and regimen; Y92.89 Other specified places as the place of occurrence of the external cause
CPT/HCPCS: 36415; 71010; 80048; 80074; 81001; 81025; 82550; 82553; 82805; 82962; 83036; 83690; 83735; 84100; 84484; 85025; 93005; 93010; 94640; 96361; 96374; 96375; J1170; J1815; J1818; J2405; J7030

== ENCOUNTER 2017-12-19 18:39 | Inpatient (IN) | payer MEDICARE ==
[2017-12-19 19:33] LABS: Basophils # (Auto) 0.1 K/mm3 (0.0-0.1); Basophils % (Auto) 0.8 % (0.0-1.8); Eosinophils # (Auto) 0.1 K/mm3 (0.0-0.4); Eosinophils % (Auto) 1.1 % (0.0-4.3); Hematocrit 38.4 % (30.3-42.9); Hemoglobin 12.5 gm/dl (10.1-14.3); Lymphocytes % (Auto) 35.6 % (13.4-35.0); Mean Corpuscular HGB Conc 33 % (30-34); Mean Corpuscular Hemoglobin 29 pg (28-32); Mean Corpuscular Volume 89 fl (79-97); Monocytes # (Auto) 0.4 K/mm3 (0.0-0.8); Monocytes % (Auto) 4.8 % (0.0-7.3); Platelet Count 306 K/mm3 (140-440); Red Blood Count 4.34 M/mm3 (3.65-5.03); Red Cell Distribution Width 14.8 % (13.2-15.2)
[2017-12-19 19:43] LABS: Bacteria,Urine 1+ /HPF (Negative); Bilirubin,Urine NEG (Negative); Blood,Urine NEG (Negative); Color,Urine Colorless (Yellow); Mucus,Urine FEW /HPF; Protein,Urine <15 mg/dL mg/dL (Negative); Urobilinogen,Urine < 2.0 mg/dL (<2.0)
[2017-12-19 20:00] LABS: BUN/Creatinine Ratio 19; Blood Urea Nitrogen 23 mg/dL (7-17); Calcium 8.1 mg/dL (8.4-10.2); Hemolysis Index 10
[2017-12-19] MEDS ORDERED: NACL 0.9% 1000 ML 1,000 ML ONE (20:03)
[2017-12-19] MEDS ORDERED: D50W (25GM) Syringe IV PRN ×2 (20:23→22:16)
[2017-12-19] MEDS ORDERED: ZOFRAN IV ONE (20:23)
[2017-12-19] MEDS ORDERED: MORPHINE IV ONE (20:23)
--- NOTE | 2017-12-19 20:27 | Emergency Department Report ---
ED Chest Pain HPI - General Chief Complaint: Chest Pain Stated Complaint: HYPERGYLCEMIA Time Seen by Provider: 12/19/17 20:09 Source: patient Mode of arrival: Stretcher Limitations: No Limitations - History of Present Illness Initial Comments: 57-year-old female presents to the emergency department from home with complaint of some midsternal chest pain that has been going on since yesterday. It is associated with some nausea without vomiting and some mild shortness of breath. Patient also was found to have very elevated blood sugar through triage, greater than 500 on Accu-Chek. The patient does have insulin- dependent diabetes and takes NovoLog with meals and as a sliding scale, and also takes Levemir with 32 units at night and 16 units in the morning. She says that she has been compliant with her medications. She has a primary care physician, Dr. Salgado. No recent travel or sick contacts at home. She also has a past medical history of asthma, sickle cell trait. She was last hospitalized in October secondary to uncontrolled diabetes. - Related Data Home Medications Medication Instructions Recorded Confirmed Last Taken Insulin Aspart [Novolog Flexpen] 16 unit SQ DAILY 12/19/17 12/19/17 Unknown Insulin Detemir [Levemir] 16 units SUB-Q BID 12/19/17 12/19/17 12/19/17 Previous Rx's Medication Instructions Recorded Last Taken Type Gabapentin [Neurontin] 800 mg PO TID #90 tablet 11/11/17 12/19/17 Rx Zolpidem [Ambien] 10 mg PO QHS #30 tablet 11/11/17 12/18/17 Rx Allergies Allergy/AdvReac Type Severity Reaction Status Date / Time heparin Allergy Intermediate Hives Verified 08/09/17 07:40 Penicillins Allergy Intermediate Hives Verified 08/09/17 07:40 ketorolac tromethamine Allergy Itching Verified 08/09/17 07:40 [From Toradol] tramadol HCl [From Ultram] Allergy Itching Verified 08/09/17 07:40 Heart Score - HEART Score History: Slightly suspicious EKG: Non-specific Age: < 45 Risk factors: 1-2 risk factors Troponin: < normal limit HEART Score: 2 - Critical Actions Critical Actions: 0-3 pts:0.9-1.7%risk of adverse cardiac event.Candidate for discharge ED Review of Systems ROS: Stated complaint: HYPERGYLCEMIA Other details as noted in HPI Comment: All other systems reviewed and negative Constitutional: denies: chills, fever Eyes: denies: eye pain, eye discharge, vision change ENT: denies: ear pain, throat pain Respiratory: shortness of breath. denies: cough Cardiovascular: chest pain. denies: palpitations Gastrointestinal: nausea. denies: abdominal pain Genitourinary: denies: urgency, dysuria, discharge Musculoskeletal: denies: back pain, joint swelling, arthralgia Skin: denies: rash, lesions Neurological: denies: headache, weakness, paresthesias ED Past Medical Hx - Past Medical History Hx Hypertension: No Hx Heart Attack/AMI: No Hx Congestive Heart Failure: No Hx Diabetes: Yes Hx Deep Vein Thrombosis: No Hx Pulmonary Embolism: No Hx Liver Disease: No Hx Sickle Cell Disease: No (Sickle Cell Trait) Hx Arthritis: No Hx Asthma: Yes Hx COPD: No Hx Tuberculosis: No Hx HIV: No Additional medical history: pneumonia. MRSA - Surgical History Hx Coronary Stent: No Hx Open Heart Surgery: No Hx Pacemaker: No Hx Internal Defibrillator: No Hx Cholecystectomy: Yes Hx Appendectomy: No Hx Breast Surgery: No Additional Surgical History: X 2. HERNIA REPAIR - Social History Smoking Status: Never Smoker Substance Use Type: None - Medications Home Medications: Home Medications Medication Instructions Recorded Confirmed Last Taken Type Gabapentin [Neurontin] 800 mg PO TID #90 tablet 11/11/17 12/19/17 12/19/17 Rx Zolpidem [Ambien] 10 mg PO QHS #30 tablet 11/11/17 12/19/17 12/18/17 Rx Insulin Aspart [Novolog Flexpen] 16 unit SQ DAILY 12/19/17 12/19/17 Unknown History Insulin Detemir [Levemir] 16 units SUB-Q BID 12/19/17 12/19/17 12/19/17 History ED Physical Exam - General Limitations: No Limitations - Other Other exam information: GENERAL: Well-developed. HENT: Normocephalic. Atraumatic. Patient has moist mucous membranes. EYES: Extraocular motions are intact. Pupils equal reactive to light bilaterally. NECK: Supple. Trachea is midline. CHEST/LUNGS: Clear to auscultation. There is no respiratory distress noted. HEART/CARDIOVASCULAR: Regular. There is no tachycardia. There is no murmur. ABDOMEN: Abdomen is soft, nontender. Patient has normal bowel sounds. There is no abdominal distention. SKIN: Skin is warm and dry. NEURO: The patient is awake, alert, and oriented. The patient is cooperative. The patient has no focal neurologic deficits. The patient has normal speech. MUSCULOSKELETAL: There is no tenderness or deformity. There is no evidence of acute injury. ED Course Vital Signs 12/19/17 12/19/17 12/19/17 18:51 19:00 19:16 Temperature 98.1 F Pulse Rate 80 82 Respiratory 16 23 Rate Blood Pressure 132/81 132/81 132/81 O2 Sat by Pulse 97 Oximetry 12/19/17 12/19/17 12/19/17 19:31 20:26 20:53 Temperature Pulse Rate 79 Respiratory 15 20 20 Rate Blood Pressure 132/81 O2 Sat by Pulse 96 Oximetry FITO score - Fito Score Age > 65: (0) No Aspirin use within the Past 7 Days: (0) No 3 or more CAD Risk Factors: (0) No 2 or more Angina events in past 24 hrs: (0) No Known CAD with more than 50% Stenosis: (0) No Elevated Cardiac Markers: (0) No ST Deviation Greater than 0.5mm: (0) No FITO Score: 0 ED Medical Decision Making - Lab Data Result diagrams: 12/19/17 19:09 12/19/17 20:26 - EKG Data -: EKG Interpreted by Me EKG shows normal: sinus rhythm, axis, intervals, QRS complexes (LVH), ST-T waves (early repolarization, T-wave inversion to the lateral leads) Rate: normal - EKG Data When compared to previous EKG there are: previous EKG unavailable Interpretation: other (sinus rhythm, LVH, nonspecific ST-T waves with some early repolarization, T-wave inversion to the lateral leads) - Radiology Data Radiology results: image reviewed interpreted by me: Chest x-ray does not show any acute process. There are no pleural effusions, obvious pneumonia and there is no pneumothorax. - Medical Decision Making Patient presents with some chest pain. EKG shows some T-wave inversions but otherwise no ST elevation SD or dysrhythmia. First troponin negative. However the patient does have signs of early diabetic ketoacidosis versus HHNK. The first venous pH does not show significant acidosis but is borderline low. The first anion gap is only slightly elevated at 19 but the second one is a 23. She has a blood sugar greater than 800 and was placed on an insulin drip and given IV fluid resuscitation. She will be admitted to the hospital for further evaluation and treatment and was accepted for admission by the hospitalist, Dr. Shepard. - Differential Diagnosis DKA, HHNK, SD, Pneumonia Critical Care Time: No Critical care attestation.: If time is entered above; I have spent that time in minutes in the direct care of this critically ill patient, excluding procedure time. ED Disposition Clinical Impression: Hyponatremia syndrome, Insulin dependent diabetes mellitus, Hyperkalemia DKA (diabetic ketoacidoses) Qualifiers: Diabetes mellitus type: type 1 Diabetes mellitus complication detail: without coma Qualified Code(s): E10.10 - Type 1 diabetes mellitus with ketoacidosis without coma Chest pain Qualifiers: Chest pain type: unspecified Qualified Code(s): R07.9 - Chest pain, unspecified Disposition: -09 OP ADMIT IP TO THIS HOSP Is pt being admited?: Yes Condition: Fair Instructions: Diabetic Ketoacidosis (ED), Chest Pain (ED), Diabetes Mellitus Type 2 in Adults (ED) Referrals: HERLINDA JENNINGS MD [Primary Care Provider] - 3-5 Days Time of Disposition: 22:33
[2017-12-19 20:58] LABS: BUN/Creatinine Ratio 20; Blood Urea Nitrogen 22 mg/dL (7-17); Hemolysis Index 13
--- NOTE | 2017-12-19 21:42 | XRay Report ---
FINAL REPORT PROCEDURE: Chest. TECHNIQUE: Portable AP view. HISTORY: Chest pain. COMPARISON: No prior studies are available for comparison. FINDINGS: The heart size is normal. The lungs are clear and well expanded. There are no pleural effusions. The soft tissues and regional skeleton are unremarkable. IMPRESSION: Negative portable chest.
[2017-12-19] MEDS: HumuLIN R 100 UNITS in NACL 0.9% 99 ML IV SCH ×2 (21:48→23:07)
[2017-12-19] MEDS ORDERED: SODIUM CHLORIDE FLUSH SYRINGE 10 ML IV PRN (22:14)
[2017-12-19] MEDS ORDERED: TYLENOL PO PRN (22:14)
--- NOTE | 2017-12-19 22:19 | History and Physical Report ---
History of Present Illness Date of examination: 12/19/17 Chief complaint: chest pain History of present illness: 37-year-old -[place] female with past medical history significant for diabetes mellitus on insulin presented to the emergency department complaining of midsternal chest pain that started yesterday night. Pain is sharp, intermittent, 8 out of 10 in intensity, with no radiation, worsened with eating , not alleviating factors identified, associated with diaphoresis, no shortness of breath. Patient admitted for nausea and vomiting, with mild abdominal pain. Patient said this afternoon her blood sugar was 101 and she took 3 cups of orange juice. While she presented in the emergency department her blood sugar was 846 with anion gap of 19 initially and later 23. Patient is admitted for the management of DKA to the ICU. First set of cardiac enzymes were negative, EKG normal sinus rhythm. REVIEW OF SYSTEMS: GENERAL: no fatigue, no fever HEAD: no head ache EYES: no blurry vision, no acute visual loss EARS: no hearing loss, no discharge, no earache NOSE: no stuffiness, no sneezing, no discharge MOUTH, THROAT AND NECK: no bleeding gums, no sore throat, no swollen neck CARDIAC: As stated in the HPI. RESPIRATORY: no shortness of breath, no wheeze, no cough, no sputum, no hemoptysis, no asthma GI: Mild abdominal pain, with occasional nausea and vomiting URINARY: no change in frequency, no urgency, no polyuria, no hematuria, no incontinence MUSCULOSKELETAL: no muscle weakness, no pain, no joint stiffness NEUROLOGIC: no loss of sensation/numbness, no tingling, no tremors, no weakness/ paralysis HEMATOLOGIC: no anemia, no easy bruising SKIN: no rashes ENDOCRINE: History of diabetes on insulin. PSYCHIATRIC: no anxiety, no depression, no suicidal ideations Past History Past Medical History: diabetes Past Surgical History: cholecystectomy, hernia repair Social history: full code. denies: smoking, alcohol abuse, prescription drug abuse, IV drug use Family history: diabetes (father and mother ), hypertension (Father and mother) Medications and Allergies Allergies Allergy/AdvReac Type Severity Reaction Status Date / Time heparin Allergy Intermediate Hives Verified 08/09/17 07:40 Penicillins Allergy Intermediate Hives Verified 08/09/17 07:40 ketorolac tromethamine Allergy Itching Verified 08/09/17 07:40 [From Toradol] tramadol HCl [From Ultram] Allergy Itching Verified 08/09/17 07:40 Home Medications Medication Instructions Recorded Confirmed Last Taken Type Gabapentin [Neurontin] 800 mg PO TID #90 tablet 11/11/17 12/19/17 12/19/17 Rx Zolpidem [Ambien] 10 mg PO QHS #30 tablet 11/11/17 12/19/17 12/18/17 Rx Insulin Aspart [Novolog Flexpen] 16 unit SQ DAILY 12/19/17 12/19/17 Unknown History Insulin Detemir [Levemir] 16 units SUB-Q BID 12/19/17 12/19/17 12/19/17 History Active Meds: Active Medications Acetaminophen (Tylenol) 650 mg PO Q4H PRN PRN Reason: Pain MILD(1-3)/Fever >100.5/BRAVO Dextrose (D50w (25gm) Syringe) 0 ml IV PRN PRN PRN Reason: Hypoglycemia Dextrose (D50w (25gm) Syringe) 0 ml IV PRN PRN PRN Reason: Hypoglycemia Heparin Sodium (Porcine) (Heparin) 5,000 unit SUB-Q Q8HR SHANELL Insulin Human Regular 100 (units/ Sodium Chloride) 100 mls @ 5 mls/hr IV TITR SHANELL; Protocol Last Admin: 12/19/17 21:48 Dose: 8 units/hr, 8 mls/hr Insulin Human Regular 100 (units/ Sodium Chloride) 100 mls @ 1 mls/hr IV TITR SHANELL; Protocol Ondansetron HCl (Zofran) 4 mg IV Q8H PRN PRN Reason: Nausea And Vomiting Sodium Chloride (Sodium Chloride Flush Syringe 10 Ml) 10 ml IV BID SHANELL Sodium Chloride (Sodium Chloride Flush Syringe 10 Ml) 10 ml IV PRN PRN PRN Reason: LINE FLUSH Exam - Physical Exam Narrative exam: Not in cardiopulmonary distress. The patient appeared emaciated. Vital signs as documented. Head exam is unremarkable. No scleral icterus . Neck is without jugular venous distension, thyromegaly, or carotid bruits. Lungs are clear to auscultation. Cardiac exam reveals regular rate and Rhythm. First and second heart sounds normal. No murmurs, rubs or gallops. Abdominal exam reveals normal bowel sounds, no masses, no organomegaly and no aortic enlargement. Extremities are nonedematous and both femoral and pedal pulses are normal. AMBULANCE MECHANIC: Alert and oriented 3. No focal weakness. - Constitutional Vitals: Temp Pulse Resp BP Pulse Ox 98.1 F 79 20 132/81 96 12/19/17 19:00 12/19/17 19:31 12/19/17 20:53 12/19/17 19:31 12/19/17 19:31 Results - Labs CBC & Chem 7: 12/19/17 19:09 12/19/17 20:26 Labs: Laboratory Last Values WBC 8.3 K/mm3 (4.5-11.0) 12/19/17 19:09 RBC 4.34 M/mm3 (3.65-5.03) 12/19/17 19:09 Hgb 12.5 gm/dl (10.1-14.3) 12/19/17 19:09 Hct 38.4 % (30.3-42.9) 12/19/17 19:09 MCV 89 fl (79-97) 12/19/17 19:09 MCH 29 pg (28-32) 12/19/17 19:09 MCHC 33 % (30-34) 12/19/17 19:09 RDW 14.8 % (13.2-15.2) 12/19/17 19:09 Plt Count 306 K/mm3 (140-440) 12/19/17 19:09 Lymph % (Auto) 35.6 % (13.4-35.0) H 12/19/17 19:09 [place] % (Auto) 4.8 % (0.0-7.3) 12/19/17 19:09 Eos % (Auto) 1.1 % (0.0-4.3) 12/19/17 19:09 Baso % (Auto) 0.8 % (0.0-1.8) 12/19/17 19:09 Lymph # 3.0 K/mm3 (1.2-5.4) 12/19/17 19:09 [place] # 0.4 K/mm3 (0.0-0.8) 12/19/17 19:09 Eos # 0.1 K/mm3 (0.0-0.4) 12/19/17 19:09 Baso # 0.1 K/mm3 (0.0-0.1) 12/19/17 19:09 Seg Neutrophils % 57.7 % (40.0-70.0) 12/19/17 19:09 Seg Neutrophils # 4.8 K/mm3 (1.8-7.7) 12/19/17 19:09 VBG pH 7.330 (7.320-7.420) 12/19/17 19:09 Sodium 127 mmol/L (137-145) L 12/19/17 20:26 Potassium 5.6 mmol/L (3.6-5.0) H 12/19/17 20:26 Chloride 91.7 mmol/L (98-107) L 12/19/17 20:26 Carbon Dioxide 18 mmol/L (22-30) L 12/19/17 20:26 Anion Gap 23 mmol/L 12/19/17 20:26 BUN 22 mg/dL (7-17) H 12/19/17 20:26 Creatinine 1.1 mg/dL (0.7-1.2) 12/19/17 20:26 Estimated GFR > 60 ml/min 12/19/17 20:26 BUN/Creatinine Ratio 20 % 12/19/17 20:26 Glucose 742 mg/dL (65-100) H* 12/19/17 20:26 POC Glucose > 500 (70-105) H 12/19/17 19:09 Osmolality 360 Mosm/kg 12/19/17 20:26 Calcium 8.0 mg/dL (8.4-10.2) L 12/19/17 20:26 Phosphorus 3.40 mg/dL (2.5-4.5) 12/19/17 20:26 Magnesium 2.40 mg/dL (1.7-2.3) H 12/19/17 20:26 Troponin T < 0.010 ng/mL (0.00-0.029) 12/19/17 20:26 Urine Color Colorless (Yellow) 12/19/17 Unknown Urine Turbidity Clear (Clear) 12/19/17 Unknown Urine pH 7.0 (5.0-7.0) 12/19/17 Unknown Ur Specific [place] 1.021 (1.003-1.030) 12/19/17 Unknown Urine Protein <15 mg/dl mg/dL (Negative) 12/19/17 Unknown Urine Glucose (UA) >=500 mg/dL (Negative) 12/19/17 Unknown Urine Ketones Neg mg/dL (Negative) 12/19/17 Unknown Urine Blood Neg (Negative) 12/19/17 Unknown Urine Nitrite Neg (Negative) 12/19/17 Unknown Urine Bilirubin Neg (Negative) 12/19/17 Unknown Urine Urobilinogen < 2.0 mg/dL (<2.0) 12/19/17 Unknown Ur Leukocyte Esterase Neg (Negative) 12/19/17 Unknown Urine WBC (Auto) 2.0 /HPF (0.0-6.0) 12/19/17 Unknown Urine RBC (Auto) 2.0 /HPF (0.0-6.0) 12/19/17 Unknown U Epithel Cells (Auto) 1.0 /HPF (0-13.0) 12/19/17 Unknown Urine Bacteria (Auto) 1+ /HPF (Negative) 12/19/17 Unknown Urine Mucus Few /HPF 12/19/17 Unknown - Imaging and Cardiology EKG: image reviewed (normal sinus rhythm) Assessment and Plan Assessment and plan: DKA - patient is placed on DKA protocol - last bloodSugar was 700 Diabetes mellitus with hyperglycemia - Patient will be started with home dose of insulin and sliding scale insulin once DKA is resolved The high probability of a clinically significant, sudden or life threatening deterioration of the [endocrine] system(s) required my full and direct attention , intervention and personal management. The aggregate critical care time was [31 ] minutes. This time is in addition to time spent performing reported procedures but includes the following: [x] Data Review and interpretation [x] Patient assessment and monitoring of vital signs [x] Documentation [x] Medication orders and management Chest pain - Troponin is negative, EKG normal sinus rhythm GERD - Patient started on pantoprazole Diabetic education DVT prophylaxis -On Lovenox Disposition - Admit to ICU Advance Directives: Yes VTE prophylaxis?: Chemical Plan of care discussed with patient/family: Yes
[2017-12-19] MEDS ORDERED: PROTONIX IV ONE (22:39)
[2017-12-19] MEDS ORDERED: HumuLIN R 100 UNITS in NACL 0.9% 99 ML IV SCH (23:00)
[2017-12-19] MEDS ORDERED: DILAUDID ONE (23:15)
[2017-12-19] MEDS: DILAUDID IV PRN (23:29)
[2017-12-20 00:14] LABS: BUN/Creatinine Ratio 20; Blood Urea Nitrogen 20 mg/dL (7-17); Calcium 8.1 mg/dL (8.4-10.2); Hemolysis Index 10
[2017-12-20] MEDS ORDERED: D5W/0.45% NACL/KCL 20 MEQ 20 MEQ/1,000 ML BAG IV ONE (00:28)
[2017-12-20] MEDS ORDERED: D5W/0.45% NACL/KCL 20 MEQ 20 MEQ/1,000 ML BAG IV SCH (01:00)
[2017-12-20] MEDS ORDERED: D50W (25GM) Syringe IV ONE (01:32)
[2017-12-20 02:00] LABS: BUN/Creatinine Ratio 21; Blood Urea Nitrogen 19 mg/dL (7-17); Calcium 8.3 mg/dL (8.4-10.2); Hemolysis Index 9
[2017-12-20] MEDS ORDERED: NACL 0.9% 1000 ML 1,000 ML ONE (02:25)
[2017-12-20] MEDS ORDERED: DILAUDID ONE (03:43)
[2017-12-20] MEDS: HumuLIN R 100 UNITS in NACL 0.9% 99 ML IV SCH ×4 (04:00→07:07)
[2017-12-20] MEDS ORDERED: HEPARIN SUB-Q SCH (06:00)
[2017-12-20 06:14] LABS: BUN/Creatinine Ratio 24; Blood Urea Nitrogen 17 mg/dL (7-17); Calcium 7.7 mg/dL (8.4-10.2); Hemolysis Index 14
[2017-12-20] MEDS: DILAUDID IV PRN ×4 (08:43→20:41)
[2017-12-20] MEDS: PROTONIX PO SCH (10:44)
[2017-12-20] MEDS: LOVENOX SUB-Q SCH (10:44)
[2017-12-20 13:55] LABS: BUN/Creatinine Ratio 24; Blood Urea Nitrogen 12 mg/dL (7-17); Calcium 7.3 mg/dL (8.4-10.2); Hemolysis Index 80
[2017-12-20] MEDS: SODIUM CHLORIDE FLUSH SYRINGE 10 ML IV SCH ×2 (13:57→23:15)
[2017-12-20 15:08] LABS: BUN/Creatinine Ratio 18; Blood Urea Nitrogen 11 mg/dL (7-17); Calcium 7.8 mg/dL (8.4-10.2); Hemolysis Index 5
--- NOTE | 2017-12-20 15:45 | Progress Note ---
Assessment and Plan Assessment and plan: 37-year-old -[place]inames[place] female with past medical history significant for diabetes mellitus on insulin who presented with nausea vomiting and DKA DKA -Gap is now closer transitioned to subcutaneous insulin and started diet Diabetes mellitus with hyperglycemia -Subcutaneous insulins have been started. Transferred to [facility] floor. Chest pain, cardiac enzymes negative, EKG unremarkable, the pain was most likely brought on by emesis. - GERD - Patient started on pantoprazole History Interval history: Admits to feeling weak Review of systems Constitutional: No fevers, no malaise, no joint pains CVS: No chest pain, no orthopnea, no dyspnea on exertion, no pedal edema GI: No abdominal pain, no diarrhea, no vomiting, no constipation Respiratory: No shortness of breath, no wheezing, no coughing Hospitalist Physical - Physical exam Narrative exam: General.: Appears well, no distress, nontoxic HEENT: Moist mucous membranes, extraocular muscles intact, no lymphadenopathy Neck: supple Cardiac: S1-S2 heard Lungs: clear to auscultation bilaterally Abdomen: soft , nontender, nondistended, bowel sounds positive Extremities: no edema clubbing or cyanosis Skin: no rash or lesions Neurologic: no gross focal deficits Psych: appropriate behavior, appropriate mood, corporative, judgment intact - Constitutional Vitals: Temp Pulse Resp BP Pulse Ox 98.1 F 84 13 104/64 98 12/19/17 19:00 12/20/17 10:00 12/20/17 15:00 12/20/17 15:00 12/20/17 15:00 Results - Labs CBC & Chem 7: 12/19/17 19:09 12/20/17 14:41 Labs: Laboratory Last Values WBC 8.3 K/mm3 (4.5-11.0) 12/19/17 19:09 RBC 4.34 M/mm3 (3.65-5.03) 12/19/17 19:09 Hgb 12.5 gm/dl (10.1-14.3) 12/19/17 19:09 Hct 38.4 % (30.3-42.9) 12/19/17 19:09 MCV 89 fl (79-97) 12/19/17 19:09 MCH 29 pg (28-32) 12/19/17 19:09 MCHC 33 % (30-34) 12/19/17 19:09 RDW 14.8 % (13.2-15.2) 12/19/17 19:09 Plt Count 306 K/mm3 (140-440) 12/19/17 19:09 Lymph % (Auto) 35.6 % (13.4-35.0) H 12/19/17 19:09 [place] % (Auto) 4.8 % (0.0-7.3) 12/19/17 19:09 Eos % (Auto) 1.1 % (0.0-4.3) 12/19/17 19:09 Baso % (Auto) 0.8 % (0.0-1.8) 12/19/17 19:09 Lymph # 3.0 K/mm3 (1.2-5.4) 12/19/17 19:09 [place] # 0.4 K/mm3 (0.0-0.8) 12/19/17 19:09 Eos # 0.1 K/mm3 (0.0-0.4) 12/19/17 19:09 Baso # 0.1 K/mm3 (0.0-0.1) 12/19/17 19:09 Seg Neutrophils % 57.7 % (40.0-70.0) 12/19/17 19:09 Seg Neutrophils # 4.8 K/mm3 (1.8-7.7) 12/19/17 19:09 VBG pH 7.330 (7.320-7.420) 12/19/17 19:09 Sodium 135 mmol/L (137-145) L 12/20/17 14:41 Potassium 4.1 mmol/L (3.6-5.0) 12/20/17 14:41 Chloride 103.8 mmol/L (98-107) 12/20/17 14:41 Carbon Dioxide 18 mmol/L (22-30) L 12/20/17 14:41 Anion Gap 17 mmol/L 12/20/17 14:41 BUN 11 mg/dL (7-17) 12/20/17 14:41 Creatinine 0.6 mg/dL (0.7-1.2) L 12/20/17 14:41 Estimated GFR > 60 ml/min 12/20/17 14:41 BUN/Creatinine Ratio 18 % 12/20/17 14:41 Glucose 97 mg/dL (65-100) 12/20/17 14:41 POC Glucose 119 (70-105) H 12/20/17 15:17 Osmolality 360 Mosm/kg 12/19/17 20:26 Calcium 7.8 mg/dL (8.4-10.2) L 12/20/17 14:41 Phosphorus 3.30 mg/dL (2.5-4.5) 12/19/17 23:40 Magnesium 2.30 mg/dL (1.7-2.3) 12/19/17 23:40 Troponin T < 0.010 ng/mL (0.00-0.029) 12/19/17 23:40 Urine Color Colorless (Yellow) 12/19/17 Unknown Urine Turbidity Clear (Clear) 12/19/17 Unknown Urine pH 7.0 (5.0-7.0) 12/19/17 Unknown Ur Specific [place] 1.021 (1.003-1.030) 12/19/17 Unknown Urine Protein <15 mg/dl mg/dL (Negative) 12/19/17 Unknown Urine Glucose (UA) >=500 mg/dL (Negative) 12/19/17 Unknown Urine Ketones Neg mg/dL (Negative) 12/19/17 Unknown Urine Blood Neg (Negative) 12/19/17 Unknown Urine Nitrite Neg (Negative) 12/19/17 Unknown Urine Bilirubin Neg (Negative) 12/19/17 Unknown Urine Urobilinogen < 2.0 mg/dL (<2.0) 12/19/17 Unknown Ur Leukocyte Esterase Neg (Negative) 12/19/17 Unknown Urine WBC (Auto) 2.0 /HPF (0.0-6.0) 12/19/17 Unknown Urine RBC (Auto) 2.0 /HPF (0.0-6.0) 12/19/17 Unknown U Epithel Cells (Auto) 1.0 /HPF (0-13.0) 12/19/17 Unknown Urine Bacteria (Auto) 1+ /HPF (Negative) 12/19/17 Unknown Urine Mucus Few /HPF 12/19/17 Unknown
[2017-12-20] MEDS ORDERED: D50W (25GM) Syringe IV PRN (15:46)
[2017-12-20] MEDS ORDERED: HumaLOG SUB-Q SCH (16:30)
[2017-12-20] MEDS: HumaLOG SUB-Q SCH ×2 (17:45→23:04)
--- NOTE | 2017-12-20 18:50 | Consultation ---
History of Present Illness Consult date: 12/20/17 Reason for consult: chest pain, COPD History of present illness: PULMONARY CONSULTATION. DR. Pulido thank you for asking us to participate in the care of this patient. This is 37 year old female came to the emergency room for chest pain. Patient found to have DKA. Patient treated for DKA. Patient alert, awake , still complaining chest pain. Patient denies shortness of breath and cough. On auscultation of lungs patient has mild wheezing.Patient has history of smoking 1 pack for 13 years. Says stopped smoking 2 weeks ago. Denies alcohol or drug abuse. Patient allergic to heparin,pencillin, Ketorolac tromethamine,tramadal. Patient has 3 children. 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 Denies other medical problems. Past History Past Medical History: diabetes Past Surgical History: cholecystectomy, hernia repair Social history: full code. denies: smoking, alcohol abuse, prescription drug abuse, IV drug use Family history: diabetes (father and mother ), hypertension (Father and mother) Medications and Allergies Allergies Allergy/AdvReac Type Severity Reaction Status Date / Time heparin Allergy Intermediate Hives Verified 08/09/17 07:40 Penicillins Allergy Intermediate Hives Verified 08/09/17 07:40 ketorolac tromethamine Allergy Itching Verified 08/09/17 07:40 [From Toradol] tramadol HCl [From Ultram] Allergy Itching Verified 08/09/17 07:40 Home Medications Medication Instructions Recorded Confirmed Last Taken Type Gabapentin [Neurontin] 800 mg PO TID #90 tablet 11/11/17 12/19/17 12/19/17 Rx Zolpidem [Ambien] 10 mg PO QHS #30 tablet 11/11/17 12/19/17 12/18/17 Rx Insulin Aspart [Novolog Flexpen] 16 unit SQ DAILY 12/19/17 12/19/17 Unknown History Insulin Detemir (Nf) [Levemir (Nf)] 16 units SUB-Q BID 12/19/17 12/19/17 History Active Meds: Active Medications Acetaminophen (Tylenol) 650 mg PO Q4H PRN PRN Reason: Pain MILD(1-3)/Fever >100.5/BRAVO Dextrose (D50w (25gm) Syringe) 0 ml IV PRN PRN PRN Reason: Hypoglycemia Last Admin: 12/20/17 01:40 Dose: 50 ml Dextrose (D50w (25gm) Syringe) 50 ml IV PRN PRN PRN Reason: Hypoglycemia Enoxaparin Sodium (Lovenox) 40 mg SUB-Q DAILY [facility] Last Admin: 12/20/17 10:44 Dose: 40 mg Gabapentin (Neurontin) 800 mg PO TID [facility] Hydromorphone HCl (Dilaudid) 0.5 mg IV Q4H PRN PRN Reason: Pain Last Admin: 12/20/17 16:29 Dose: 0.5 mg Insulin Glargine (Lantus) 15 units SUB-Q QHS [facility] Insulin Human Lispro (Humalog) 5 unit SUB-Q AC [facility] Last Admin: 12/20/17 17:44 Dose: Not Given Insulin Human Lispro (Humalog) 0 unit SUB-Q ACHS [facility]; Protocol Last Admin: 12/20/17 17:45 Dose: Not Given Ondansetron HCl (Zofran) 4 mg IV Q8H PRN PRN Reason: Nausea And Vomiting Pantoprazole Sodium (Protonix) 40 mg PO DAILY [facility] Last Admin: 12/20/17 10:44 Dose: 40 mg Sodium Chloride (Sodium Chloride Flush Syringe 10 Ml) 10 ml IV BID [facility] Last Admin: 12/20/17 13:57 Dose: Not Given Sodium Chloride (Sodium Chloride Flush Syringe 10 Ml) 10 ml IV PRN PRN PRN Reason: LINE FLUSH Zolpidem Tartrate (Ambien) 10 mg PO QHS [facility] Review of Systems All systems: negative Physical Examination Vital signs: Vital Signs BP 132/81 12/19/17 18:51 General appearance: no acute distress, alert Eyes: non-icteric ENT: oropharynx moist Neck: supple, no JVD Ascultation: Bilateral: wheezes Cardiovascular: regular rate and rhythm Gastrointestinal: normoactive bowel sounds, soft, non-tender Integumentary: normal Extremities: no cyanosis, no edema Musculoskeletal: no deformities normal mental status, non-focal exam, pupils equal and round, CN II-XII normal anxious Results - Laboratory Findings CBC and BMP: 12/19/17 19:09 12/20/17 14:41 Abnormal lab findings: Abnormal Labs 12/19/17 12/19/17 12/19/17 19:09 19:09 19:09 Lymph % (Auto) 35.6 H Sodium 121 L Potassium 5.9 H Chloride 88.1 L Carbon Dioxide 20 L BUN 23 H Creatinine Glucose 802 H* POC Glucose > 500 H Calcium 8.1 L Magnesium 12/19/17 12/19/17 12/19/17 20:26 20:26 23:06 Lymph % (Auto) Sodium 127 L Potassium 5.6 H Chloride 91.7 L Carbon Dioxide 18 L BUN 22 H Creatinine Glucose 742 H* POC Glucose 438 H Calcium 8.0 L Magnesium 2.40 H 12/19/17 12/20/17 12/20/17 23:40 00:19 01:00 Lymph % (Auto) Sodium Potassium Chloride Carbon Dioxide 18 L 19 L BUN 20 H 19 H Creatinine Glucose 292 H 60 L POC Glucose 232 H Calcium 8.1 L 8.3 L Magnesium 12/20/17 12/20/17 12/20/17 01:35 03:55 05:16 Lymph % (Auto) Sodium Potassium Chloride Carbon Dioxide BUN Creatinine Glucose POC Glucose < 40 L 163 H 153 H Calcium Magnesium 12/20/17 12/20/17 12/20/17 05:51 06:09 08:23 Lymph % (Auto) Sodium Potassium Chloride Carbon Dioxide 21 L BUN Creatinine Glucose 115 H POC Glucose 133 H 160 H Calcium 7.7 L Magnesium 12/20/17 12/20/17 12/20/17 09:38 12:04 12:44 Lymph % (Auto) Sodium 133 L Potassium Chloride Carbon Dioxide 17 L BUN Creatinine 0.5 L Glucose 277 H POC Glucose 111 H 327 H Calcium 7.3 L Magnesium 12/20/17 12/20/17 12/20/17 13:37 14:41 15:17 Lymph % (Auto) Sodium 135 L Potassium Chloride Carbon Dioxide 18 L BUN Creatinine 0.6 L Glucose POC Glucose 206 H 119 H Calcium 7.8 L Magnesium 12/20/17 16:06 Lymph % (Auto) Sodium Potassium Chloride Carbon Dioxide BUN Creatinine Glucose POC Glucose 153 H Calcium Magnesium - Diagnostic Findings Chest x-ray: report reviewed (Reported negative potable chest.), image reviewed Assessment and Plan This is 37 year old female came to the emergency room for chest pain. Patient found to have DKA. Patient treated for DKA. Patient alert, awake , still complaining chest pain. Patient denies shortness of breath and cough. On auscultation of lungs patient has mild wheezing.Patient has history of smoking 1 pack for 13 years. Says stopped smoking 2 weeks ago. Denies alcohol or drug abuse. Patient allergic to heparin,pencillin, Ketorolac tromethamine,tramadal. Patient has 3 children. 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 Denies other medical problems. - Patient Problems (1) Chest pain Current Visit: Yes Status: Acute Qualifiers: Chest pain type: unspecified Qualified Code(s): R07.9 - Chest pain, unspecified Plan to address problem: Patient still complaining chest pain.Pain does not increase with inspiration. Recommend to consult cardiology. (2) DKA (diabetic ketoacidoses) Current Visit: Yes Status: Acute Qualifiers: Diabetes mellitus type: type 1 Diabetes mellitus complication detail: without coma Qualified Code(s): E10.10 - Type 1 diabetes mellitus with ketoacidosis without coma Plan to address problem: Improving. Anion gap is closing. (3) Hyponatremia syndrome Current Visit: Yes Status: Acute Plan to address problem: Patients todays sodium is 133. (4) COPD (chronic obstructive pulmonary disease) Current Visit: No Status: Chronic Qualifiers: Emphysema type: unspecified Qualified Code(s): J43.9 - Emphysema, unspecified Plan to address problem: Likely COPD Recommend PFTs as out patient. Brovanna/Budesonide aerosol treatments q 12 hours. Albuterol/atrovent aerosol treatments q 6 hours prn for shortness of breath. Continue S/C Lovenox. Continue protonix. ABGs on room air tomorrow.
[2017-12-20] MEDS ORDERED: NON-FORMULARY (Gabapentin [Neurontin] 800 MG) PO SCH (20:00)
[2017-12-20 20:13] LABS: BUN/Creatinine Ratio 20; Blood Urea Nitrogen 14 mg/dL (7-17); Calcium 7.7 mg/dL (8.4-10.2); Hemolysis Index 21
[2017-12-20] MEDS ORDERED: ATROVENT IH PRN (20:39)
[2017-12-20] MEDS ORDERED: PROVENTIL IH PRN (20:39)
[2017-12-20] MEDS: NEURONTIN PO SCH (20:40)
[2017-12-20] MEDS ORDERED: LANTUS SUB-Q SCH (22:00)
[2017-12-20] MEDS ORDERED: HumaLOG SUB-Q ONE (23:00)
[2017-12-20] MEDS: AMBIEN PO SCH (23:03)
[2017-12-20] MEDS: PULMICORT IH SCH (23:16)
[2017-12-21] MEDS: DILAUDID IV PRN ×6 (01:01→22:41)
[2017-12-21] MEDS: NACL 0.9% 1000 ML 1,000 ML IV SCH ×2 (04:48→19:37)
[2017-12-21] MEDS: ZOFRAN IV PRN ×2 (05:10→17:45)
[2017-12-21 06:17] LABS: Basophils % (Auto) 0.3 % (0.0-1.8); Eosinophils # (Auto) 0.2 K/mm3 (0.0-0.4); Eosinophils % (Auto) 2.9 % (0.0-4.3); Hematocrit 34.2 % (30.3-42.9); Hemoglobin 11.5 gm/dl (10.1-14.3); Lymphocytes # (Auto) 3.2 K/mm3 (1.2-5.4); Lymphocytes % (Auto) 42.2 % (13.4-35.0); Mean Corpuscular HGB Conc 34 % (30-34); Mean Corpuscular Hemoglobin 29 pg (28-32); Mean Corpuscular Volume 86 fl (79-97); Monocytes # (Auto) 0.4 K/mm3 (0.0-0.8); Monocytes % (Auto) 5.3 % (0.0-7.3); Platelet Count 283 K/mm3 (140-440); Red Blood Count 3.99 M/mm3 (3.65-5.03); Red Cell Distribution Width 14.3 % (13.2-15.2)
[2017-12-21 06:31] LABS: BUN/Creatinine Ratio 17; Blood Urea Nitrogen 12 mg/dL (7-17); Calcium 7.9 mg/dL (8.4-10.2); Hemolysis Index 2
--- NOTE | 2017-12-21 07:15 | Progress Note ---
Assessment and Plan Assessment and plan: 37-year-old -Martiniquais female with past medical history significant for diabetes mellitus on insulin who presented with nausea vomiting and DKA DKA -Gap is now closer transitioned to subcutaneous insulin and started diet Diabetes mellitus with hyperglycemia -Subcutaneous insulins have been started. Transferred to [facility] floor. Chest pain, cardiac enzymes negative, EKG unremarkable, the pain was most likely brought on by emesis. and COPD exacerbation -for stress test today - GERD - Patient started on pantoprazole Likely copd exacerbation given hx of smoking steroids, nebs -needs official PFT as outpatient History Interval history: Admits to feeling weak Review of systems Constitutional: No fevers, no joint pains CVS: No chest pain, no orthopnea, no dyspnea on exertion, no pedal edema GI: No abdominal pain, no diarrhea, no vomiting, no constipation Respiratory: co GAMING, sob and wheezing, no coughing Hospitalist Physical - Physical exam Narrative exam: General.: Appears well, no distress, nontoxic HEENT: Moist mucous membranes, extraocular muscles intact, no lymphadenopathy Neck: supple Cardiac: S1-S2 heard Lungs: mild expiratory wheezing Abdomen: soft , nontender, nondistended, bowel sounds positive Extremities: no edema clubbing or cyanosis Skin: no rash or lesions Neurologic: no gross focal deficits Psych: appropriate behavior, appropriate mood, corporative, judgment intact - Constitutional Vitals: Temp Pulse Resp BP Pulse Ox 98.9 F 71 18 100/68 98 12/21/17 04:33 12/21/17 04:33 12/21/17 05:10 12/21/17 04:33 12/21/17 04:33 Results - Labs CBC & Chem 7: 12/21/17 05:56 12/21/17 05:56 Labs: Laboratory Last Values WBC 7.5 K/mm3 (4.5-11.0) 12/21/17 05:56 RBC 3.99 M/mm3 (3.65-5.03) 12/21/17 05:56 Hgb 11.5 gm/dl (10.1-14.3) 12/21/17 05:56 Hct 34.2 % (30.3-42.9) 12/21/17 05:56 MCV 86 fl (79-97) 12/21/17 05:56 MCH 29 pg (28-32) 12/21/17 05:56 MCHC 34 % (30-34) 12/21/17 05:56 RDW 14.3 % (13.2-15.2) 12/21/17 05:56 Plt Count 283 K/mm3 (140-440) 12/21/17 05:56 Lymph % (Auto) 42.2 % (13.4-35.0) H 12/21/17 05:56 Rhea % (Auto) 5.3 % (0.0-7.3) 12/21/17 05:56 Eos % (Auto) 2.9 % (0.0-4.3) 12/21/17 05:56 Baso % (Auto) 0.3 % (0.0-1.8) 12/21/17 05:56 Lymph # 3.2 K/mm3 (1.2-5.4) 12/21/17 05:56 Rhea # 0.4 K/mm3 (0.0-0.8) 12/21/17 05:56 Eos # 0.2 K/mm3 (0.0-0.4) 12/21/17 05:56 Baso # 0.0 K/mm3 (0.0-0.1) 12/21/17 05:56 Seg Neutrophils % 49.3 % (40.0-70.0) 12/21/17 05:56 Seg Neutrophils # 3.7 K/mm3 (1.8-7.7) 12/21/17 05:56 VBG pH 7.330 (7.320-7.420) 12/19/17 19:09 Sodium 137 mmol/L (137-145) 12/21/17 05:56 Potassium 5.0 mmol/L (3.6-5.0) 12/21/17 05:56 Chloride 104.1 mmol/L (98-107) 12/21/17 05:56 Carbon Dioxide 21 mmol/L (22-30) L 12/21/17 05:56 Anion Gap 17 mmol/L 12/21/17 05:56 BUN 12 mg/dL (7-17) 12/21/17 05:56 Creatinine 0.7 mg/dL (0.7-1.2) 12/21/17 05:56 Estimated GFR > 60 ml/min 12/21/17 05:56 BUN/Creatinine Ratio 17 % 12/21/17 05:56 Glucose 295 mg/dL (65-100) H 12/21/17 05:56 POC Glucose 299 (70-105) H 12/21/17 05:25 Osmolality 360 Mosm/kg 12/19/17 20:26 Calcium 7.9 mg/dL (8.4-10.2) L 12/21/17 05:56 Phosphorus 3.30 mg/dL (2.5-4.5) 12/19/17 23:40 Magnesium 2.30 mg/dL (1.7-2.3) 12/19/17 23:40 Troponin T < 0.010 ng/mL (0.00-0.029) 12/19/17 23:40 Urine Color Colorless (Yellow) 12/19/17 Unknown Urine Turbidity Clear (Clear) 12/19/17 Unknown Urine pH 7.0 (5.0-7.0) 12/19/17 Unknown Ur Specific [place] 1.021 (1.003-1.030) 12/19/17 Unknown Urine Protein <15 mg/dl mg/dL (Negative) 12/19/17 Unknown Urine Glucose (UA) >=500 mg/dL (Negative) 12/19/17 Unknown Urine Ketones Neg mg/dL (Negative) 12/19/17 Unknown Urine Blood Neg (Negative) 12/19/17 Unknown Urine Nitrite Neg (Negative) 12/19/17 Unknown Urine Bilirubin Neg (Negative) 12/19/17 Unknown Urine Urobilinogen < 2.0 mg/dL (<2.0) 12/19/17 Unknown Ur Leukocyte Esterase Neg (Negative) 12/19/17 Unknown Urine WBC (Auto) 2.0 /HPF (0.0-6.0) 12/19/17 Unknown Urine RBC (Auto) 2.0 /HPF (0.0-6.0) 12/19/17 Unknown U Epithel Cells (Auto) 1.0 /HPF (0-13.0) 12/19/17 Unknown Urine Bacteria (Auto) 1+ /HPF (Negative) 12/19/17 Unknown Urine Mucus Few /HPF 12/19/17 Unknown
[2017-12-21] MEDS: HumaLOG SUB-Q SCH ×6 (07:38→21:05)
[2017-12-21] MEDS: NEURONTIN PO SCH ×3 (07:39→20:22)
[2017-12-21] MEDS: PULMICORT IH SCH ×3 (08:48→19:41)
[2017-12-21] MEDS: BROVANA NEBU IH SCH ×3 (08:48→19:41)
[2017-12-21] MEDS: LOVENOX SUB-Q SCH (09:25)
[2017-12-21] MEDS: SODIUM CHLORIDE FLUSH SYRINGE 10 ML IV SCH ×2 (09:26→22:00)
[2017-12-21] MEDS: PROTONIX PO SCH (09:26)
[2017-12-21] MEDS ORDERED: LEXISCAN IV ONE (09:56)
[2017-12-21] MEDS ORDERED: HumaLOG SUB-Q ONE ×2 (10:00)
[2017-12-21] MEDS ORDERED: DELTASONE PO SCH (14:00)
[2017-12-21] MEDS: DUONEB *Not for PRN Use IH SCH (15:19)
--- NOTE | 2017-12-21 18:51 | Progress Note ---
Assessment and Plan This is 37 year old female came to the emergency room for chest pain. Patient found to have DKA. Patient treated for DKA. Patient alert, awake , still complaining chest pain. Patient denies shortness of breath and cough. On auscultation of lungs patient has mild wheezing.Patient has history of smoking 1 pack for 13 years. Says stopped smoking 2 weeks ago. Denies alcohol or drug abuse. Patient allergic to heparin,pencillin, Ketorolac tromethamine,tramadal. Patient has 3 children. 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 Denies other medical problems. 12/21/17 Patient sleeping on room air. O2 saturation 97%. Refusing aerosol treatments. - Patient Problems (1) Chest pain Current Visit: Yes Status: Acute Qualifiers: Chest pain type: unspecified Qualified Code(s): R07.9 - Chest pain, unspecified Plan to address problem: Patient is in deep sleep at this time. (2) DKA (diabetic ketoacidoses) Current Visit: Yes Status: Acute Qualifiers: Diabetes mellitus type: type 1 Diabetes mellitus complication detail: without coma Qualified Code(s): E10.10 - Type 1 diabetes mellitus with ketoacidosis without coma Plan to address problem: Improving. Anion gap is closing. (3) Hyponatremia syndrome Current Visit: Yes Status: Acute Plan to address problem: Improved.Patients todays sodium is 137. (4) COPD (chronic obstructive pulmonary disease) Current Visit: No Status: Chronic Qualifiers: Emphysema type: unspecified Qualified Code(s): J43.9 - Emphysema, unspecified Plan to address problem: Likely COPD Recommend PFTs as out patient. Brovanna/Budesonide aerosol treatments q 12 hours. Albuterol/atrovent aerosol treatments q 6 hours prn for shortness of breath. Continue S/C Lovenox. Continue protonix. Subjective Date of service: 12/21/17 Interval history: Patient sleeping on room air. O2 saturation 97%. Refusing aerosol treatments. Objective Vital Signs - 12hr 12/21/17 12/21/17 12/21/17 07:28 10:07 10:13 Temperature 99.1 F Pulse Rate 74 70 93 H Pulse Rate [ Anterior Bilateral Throughout] Respiratory 18 Rate Respiratory Rate [Anterior Bilateral Throughout] Blood Pressure 104/71 102/93 121/79 O2 Sat by Pulse 100 Oximetry 12/21/17 12/21/17 12/21/17 10:14 10:15 10:16 Temperature Pulse Rate 107 H 98 H 91 H Pulse Rate [ Anterior Bilateral Throughout] Respiratory Rate Respiratory Rate [Anterior Bilateral Throughout] Blood Pressure 107/72 100/67 107/74 O2 Sat by Pulse Oximetry 12/21/17 12/21/17 12/21/17 10:17 12:44 15:19 Temperature 98.7 F Pulse Rate 92 H 75 Pulse Rate [ 83 Anterior Bilateral Throughout] Respiratory 18 Rate Respiratory 18 Rate [Anterior Bilateral Throughout] Blood Pressure 105/69 117/80 O2 Sat by Pulse 100 Oximetry 12/21/17 12/21/17 15:30 15:52 Temperature 99.1 F Pulse Rate 92 H Pulse Rate [ 88 Anterior Bilateral Throughout] Respiratory 18 Rate Respiratory 20 Rate [Anterior Bilateral Throughout] Blood Pressure 120/79 O2 Sat by Pulse 97 Oximetry Constitutional: no acute distress, asleep Eyes: non-icteric ENT: oropharynx moist Neck: supple, no JVD Ascultation: Bilateral: wheezes Cardiovascular: regular rate and rhythm Gastrointestinal: normoactive bowel sounds, soft, non-tender Integumentary: normal Extremities: no cyanosis, no edema Neurologic: normal mental status, non-focal exam, pupils equal and round, CN II- XII normal Psychiatric: anxious CBC and BMP: 12/21/17 05:56 12/21/17 05:56 ABG, PT/INR, D-dimer: ABG POC ABG pH 7.369 (7.35-7.45) 12/21/17 09:18 POC ABG pCO2 36.5 (35-45) 12/21/17 09:18 POC ABG pO2 92 (80-105) 12/21/17 09:18 POC ABG HCO3 21.0 12/21/17 09:18 POC ABG Total CO2 22 12/21/17 09:18 POC ABG O2 Sat 97 12/21/17 09:18 Abnormal lab findings: Abnormal Labs 12/19/17 12/19/17 12/19/17 19:09 19:09 19:09 Lymph % (Auto) 35.6 H Sodium 121 L Potassium 5.9 H Chloride 88.1 L Carbon Dioxide 20 L BUN 23 H Creatinine Glucose 802 H* POC Glucose > 500 H Calcium 8.1 L Magnesium 12/19/17 12/19/17 12/19/17 20:26 20:26 23:06 Lymph % (Auto) Sodium 127 L Potassium 5.6 H Chloride 91.7 L Carbon Dioxide 18 L BUN 22 H Creatinine Glucose 742 H* POC Glucose 438 H Calcium 8.0 L Magnesium 2.40 H 12/19/17 12/20/17 12/20/17 23:40 00:19 01:00 Lymph % (Auto) Sodium Potassium Chloride Carbon Dioxide 18 L 19 L BUN 20 H 19 H Creatinine Glucose 292 H 60 L POC Glucose 232 H Calcium 8.1 L 8.3 L Magnesium 12/20/17 12/20/17 12/20/17 01:35 03:55 05:16 Lymph % (Auto) Sodium Potassium Chloride Carbon Dioxide BUN Creatinine Glucose POC Glucose < 40 L 163 H 153 H Calcium Magnesium 12/20/17 12/20/17 12/20/17 05:51 06:09 08:23 Lymph % (Auto) Sodium Potassium Chloride Carbon Dioxide 21 L BUN Creatinine Glucose 115 H POC Glucose 133 H 160 H Calcium 7.7 L Magnesium 12/20/17 12/20/17 12/20/17 09:38 12:04 12:44 Lymph % (Auto) Sodium 133 L Potassium Chloride Carbon Dioxide 17 L BUN Creatinine 0.5 L Glucose 277 H POC Glucose 111 H 327 H Calcium 7.3 L Magnesium 12/20/17 12/20/17 12/20/17 13:37 14:41 15:17 Lymph % (Auto) Sodium 135 L Potassium Chloride Carbon Dioxide 18 L BUN Creatinine 0.6 L Glucose POC Glucose 206 H 119 H Calcium 7.8 L Magnesium 12/20/17 12/20/17 12/20/17 16:06 19:38 21:49 Lymph % (Auto) Sodium 133 L Potassium 5.2 H D Chloride Carbon Dioxide 20 L BUN Creatinine Glucose 350 H POC Glucose 153 H 412 H Calcium 7.7 L Magnesium 12/21/17 12/21/17 12/21/17 05:25 05:56 05:56 Lymph % (Auto) 42.2 H Sodium Potassium Chloride Carbon Dioxide 21 L BUN Creatinine Glucose 295 H POC Glucose 299 H Calcium 7.9 L Magnesium 12/21/17 12/21/17 12/21/17 12:15 14:39 15:13 Lymph % (Auto) Sodium Potassium Chloride Carbon Dioxide BUN Creatinine Glucose POC Glucose 317 H 63 L 47 L Calcium Magnesium 12/21/17 16:13 Lymph % (Auto) Sodium Potassium Chloride Carbon Dioxide BUN Creatinine Glucose POC Glucose 182 H Calcium Magnesium
--- NOTE | 2017-12-21 20:06 | Treadmill Report ---
NUCLEAR STRESS TEST The patient is brought to the Cardiology lab and a nuclear stress test is performed by administering Lexiscan. The patient tolerated administration of the Lexiscan. EKG did not show significant ischemic abnormalities. Post-stress nuclear images reveal homogeneous distribution of the isotope. No significant reversible defects are noted to indicate ischemia. Accompanying gated study shows good systolic function with no wall motion abnormalities. Ejection fraction is calculated to be 65%. IMPRESSION: 1. Nuclear stress test is noted to be negative for reversible defects to indicate ischemia. 2. Good systolic function with no significant wall motion abnormalities. Calculated ejection fraction is 65%. Suggest clinical correlation. JOB# [id number] KBM/NTS
[2017-12-21] MEDS ORDERED: LANTUS SUB-Q SCH (22:00)
[2017-12-21] MEDS: AMBIEN PO SCH (22:40)
[2017-12-22] MEDS: DUONEB *Not for PRN Use IH SCH ×2 (00:57→12:18)
[2017-12-22] MEDS: ZOFRAN IV PRN (03:44)
[2017-12-22] MEDS: DILAUDID IV PRN ×3 (03:44→12:52)
[2017-12-22] MEDS: HumaLOG SUB-Q SCH ×5 (04:50→12:35)
[2017-12-22] MEDS ORDERED: HumaLOG SUB-Q ONE ×3 (04:50)
--- NOTE | 2017-12-22 08:32 | Progress Note ---
Assessment and Plan Assessment and plan: 37-year-old -Cym[place] female with past medical history significant for diabetes mellitus on insulin who presented with nausea vomiting and DKA DKA -Gap is now closed, transitioned to subcutaneous insulin Diabetes mellitus with hyperglycemia -Subcutaneous insulins, will optimize dose, steroids likely contributing to hyperglycemica, will taper them off Chest pain, cardiac enzymes negative, EKG unremarkable, the pain was most likely brought on by emesis. and COPD exacerbation -stress test negative - GERD - Patient started on pantoprazole Likely copd exacerbation given hx of smoking steroids, nebs, taper steroids quickly -needs official PFT as outpatient History Interval history: Admits to feeling weak Review of systems Constitutional: No fevers, no joint pains CVS: No chest pain, no orthopnea, no dyspnea on exertion, no pedal edema GI: No abdominal pain, no diarrhea, no vomiting, no constipation Respiratory: co GAMING, sob and wheezing, no coughing Hospitalist Physical - Physical exam Narrative exam: General.: Appears well, no distress, nontoxic HEENT: Moist mucous membranes, extraocular muscles intact, no lymphadenopathy Neck: supple Cardiac: S1-S2 heard Lungs: mild expiratory wheezing Abdomen: soft , nontender, nondistended, bowel sounds positive Extremities: no edema clubbing or cyanosis Skin: no rash or lesions Neurologic: no gross focal deficits Psych: appropriate behavior, appropriate mood, corporative, judgment intact - Constitutional Vitals: Temp Pulse Resp BP Pulse Ox 99.1 F 76 18 117/71 98 12/22/17 07:52 12/22/17 07:52 12/22/17 07:52 12/22/17 07:52 12/22/17 07:52 Results - Labs CBC & Chem 7: 12/21/17 05:56 12/21/17 05:56 Labs: Laboratory Last Values WBC 7.5 K/mm3 (4.5-11.0) 12/21/17 05:56 RBC 3.99 M/mm3 (3.65-5.03) 12/21/17 05:56 Hgb 11.5 gm/dl (10.1-14.3) 12/21/17 05:56 Hct 34.2 % (30.3-42.9) 12/21/17 05:56 MCV 86 fl (79-97) 12/21/17 05:56 MCH 29 pg (28-32) 12/21/17 05:56 MCHC 34 % (30-34) 12/21/17 05:56 RDW 14.3 % (13.2-15.2) 12/21/17 05:56 Plt Count 283 K/mm3 (140-440) 12/21/17 05:56 Lymph % (Auto) 42.2 % (13.4-35.0) H 12/21/17 05:56 [place] % (Auto) 5.3 % (0.0-7.3) 12/21/17 05:56 Eos % (Auto) 2.9 % (0.0-4.3) 12/21/17 05:56 Baso % (Auto) 0.3 % (0.0-1.8) 12/21/17 05:56 Lymph # 3.2 K/mm3 (1.2-5.4) 12/21/17 05:56 [place] # 0.4 K/mm3 (0.0-0.8) 12/21/17 05:56 Eos # 0.2 K/mm3 (0.0-0.4) 12/21/17 05:56 Baso # 0.0 K/mm3 (0.0-0.1) 12/21/17 05:56 Seg Neutrophils % 49.3 % (40.0-70.0) 12/21/17 05:56 Seg Neutrophils # 3.7 K/mm3 (1.8-7.7) 12/21/17 05:56 POC ABG pH 7.369 (7.35-7.45) 12/21/17 09:18 POC ABG pCO2 36.5 (35-45) 12/21/17 09:18 POC ABG pO2 92 (80-105) 12/21/17 09:18 POC ABG HCO3 21.0 12/21/17 09:18 POC ABG Total CO2 22 12/21/17 09:18 POC ABG O2 Sat 97 12/21/17 09:18 POC ABG Base Excess -4 12/21/17 09:18 VBG pH 7.330 (7.320-7.420) 12/19/17 19:09 FiO2 21 % 12/21/17 09:18 Sodium 137 mmol/L (137-145) 12/21/17 05:56 Potassium 5.0 mmol/L (3.6-5.0) 12/21/17 05:56 Chloride 104.1 mmol/L (98-107) 12/21/17 05:56 Carbon Dioxide 21 mmol/L (22-30) L 12/21/17 05:56 Anion Gap 17 mmol/L 12/21/17 05:56 BUN 12 mg/dL (7-17) 12/21/17 05:56 Creatinine 0.7 mg/dL (0.7-1.2) 12/21/17 05:56 Estimated GFR > 60 ml/min 12/21/17 05:56 BUN/Creatinine Ratio 17 % 12/21/17 05:56 Glucose 295 mg/dL (65-100) H 12/21/17 05:56 POC Glucose 378 (70-105) H 12/22/17 05:52 Osmolality 360 Mosm/kg 12/19/17 20:26 Calcium 7.9 mg/dL (8.4-10.2) L 12/21/17 05:56 Phosphorus 3.30 mg/dL (2.5-4.5) 12/19/17 23:40 Magnesium 2.30 mg/dL (1.7-2.3) 12/19/17 23:40 Troponin T < 0.010 ng/mL (0.00-0.029) 12/19/17 23:40 Urine Color Colorless (Yellow) 12/19/17 Unknown Urine Turbidity Clear (Clear) 12/19/17 Unknown Urine pH 7.0 (5.0-7.0) 12/19/17 Unknown Ur Specific [place] 1.021 (1.003-1.030) 12/19/17 Unknown Urine Protein <15 mg/dl mg/dL (Negative) 12/19/17 Unknown Urine Glucose (UA) >=500 mg/dL (Negative) 12/19/17 Unknown Urine Ketones Neg mg/dL (Negative) 12/19/17 Unknown Urine Blood Neg (Negative) 12/19/17 Unknown Urine Nitrite Neg (Negative) 12/19/17 Unknown Urine Bilirubin Neg (Negative) 12/19/17 Unknown Urine Urobilinogen < 2.0 mg/dL (<2.0) 12/19/17 Unknown Ur Leukocyte Esterase Neg (Negative) 12/19/17 Unknown Urine WBC (Auto) 2.0 /HPF (0.0-6.0) 12/19/17 Unknown Urine RBC (Auto) 2.0 /HPF (0.0-6.0) 12/19/17 Unknown U Epithel Cells (Auto) 1.0 /HPF (0-13.0) 12/19/17 Unknown Urine Bacteria (Auto) 1+ /HPF (Negative) 12/19/17 Unknown Urine Mucus Few /HPF 12/19/17 Unknown
[2017-12-22] MEDS: NEURONTIN PO SCH ×2 (09:45→14:00)
[2017-12-22] MEDS: PROTONIX PO SCH (09:46)
[2017-12-22] MEDS: LOVENOX SUB-Q SCH (09:46)
[2017-12-22] MEDS: SODIUM CHLORIDE FLUSH SYRINGE 10 ML IV SCH (09:47)
[2017-12-22] MEDS ORDERED: DELTASONE PO SCH (10:00)
[2017-12-22] MEDS: PULMICORT IH SCH (12:18)
[2017-12-22] MEDS: BROVANA NEBU IH SCH (12:18)
--- NOTE | 2017-12-22 14:11 | Discharge Summary ---
Providers - Providers Date of Admission: 12/19/17 22:14 Attending physician: JULIUS PRYOR MD 12/19/17 22:16 Consult to Dietitian/Nutrition [CONS] Routine Physician Instructions: Reason For Exam: DKA Reason for Consult: Nutrition Recommendations Reason for Consult: Diet education Consult to Physician [CONS] Routine Consulting Provider: BO CASPER Reason For Exam: DKA for ICU admission Place consult to:: answering service Notified:: yes Phone number called:: [phone] Was contact made?: Yes If yes, spoke with:: Felix Time called:: 16:49 Primary care physician: HERLINDA JENNINGS Hospitalization Condition: Fair Hospital course: 37-year-old -[place] female with past medical history significant for diabetes mellitus on insulin who presented with nausea vomiting and DKA. She was treated with insulin drip and then transitioned to subcutaneous insulins. She suffered from chest pain which is most likely due to GERD. she went on to have a stress test that was negative for ischemia. She'll also found to have what appeared to be a COPD exacerbation. Given her extensive smoking history, this is most likely diagnosis. She received steroids and nebulizer treatments after which she improved. She was seen by pulmonology was in hospital. She's to follow-up with them for formal PFTs after 4 weeks. She is also being discharged on steroid taper and inhalers along with nebulizer. Heart insulins were optimized prior to discharge. Discharge diagnoses DKA Type 2 diabetes uncontrolled Chest pain due to vomiting and COPD COPD exacerbation GERD Disposition: - TO HOME OR SELFCARE Time spent for discharge: 33 minutes Core Measure Documentation - Palliative Care Palliative Care/ Comfort Measures: Not Applicable - Core Measures Any of the following diagnoses?: none Exam - Constitutional Vitals: Temp Pulse Resp BP Pulse Ox 99.1 F 76 18 117/71 98 12/22/17 07:52 12/22/17 07:52 12/22/17 07:52 12/22/17 07:52 12/22/17 07:52 General appearance: Present: no acute distress, well-nourished - EENT Eyes: Present: PERRL ENT: hearing intact, clear oral mucosa - Neck Neck: Present: supple, normal ROM - Respiratory Respiratory effort: normal Respiratory: bilateral: CTA - Cardiovascular Heart Sounds: Present: S1 & S2. Absent: rub, click - Extremities Extremities: pulses symmetrical, No edema Peripheral Pulses: within normal limits - Abdominal General gastrointestinal: Present: soft, non-tender, non-distended, normal bowel sounds Female genitourinary: Present: normal - Integumentary Integumentary: Present: clear, warm, dry - Musculoskeletal Musculoskeletal: gait normal, strength equal bilaterally - Psychiatric Psychiatric: appropriate mood/affect, intact judgment & insight - Neurologic Neurologic: CNII-XII intact, moves all extremities Plan Follow up with: HERLINDA JENNINGS MD [Primary Care Provider] - 3-5 Days IGOR LINDSEY MD [Staff Physician] - 7 Days Prescriptions: Insulin Glargine [Lantus VIAL] 30 units SUB-Q QHS #1 vial Zolpidem [Ambien] 10 mg PO QHS #10 tablet ALBUTEROL Inhaler [ProAir HFA Inhaler] 2 puff IH QID PRN #1 inhalation PRN Reason: Shortness Of Breath ALBUTEROL NEB's [Proventil 0.083% NEBS] 2.5 mg IH Q6HRT PRN #120 nebu PRN Reason: Wheezing Gabapentin [Neurontin] 800 mg PO TID #90 tablet Insulin Lispro [Humalog] 10 unit SUB-Q AC #1 vial Pantoprazole [Protonix TAB] 40 mg PO DAILY #30 tablet predniSONE [Deltasone] 10 mg PO QDAY #2 tab Tiotropium [place] [Spiriva Respimat] 4 gm IH DAILY #1 mist.inhal Other Discharge Orders: Nebulizer (Amb) Location: None Selected
[2017-12-22 14:42] VITALS: BP 113/73
== END 2017-12-22 14:45 | disposition home or self-care (01) | DRG 640 ==
LOC: ED 18:39 → CC1 22:14 → 3A 12-20 17:41
PROVIDERS: ADMIT Internal Medicine; ATTEND Internal Medicine
PROC: 4A033R1 Measurement of Arterial Saturation, Peripheral, Percutaneous Approach (ICD-10-PCS; principal; 2017-12-21)
DX: E87.1 Hypo-osmolality and hyponatremia (principal); E11.10 Type 2 diabetes mellitus with ketoacidosis without coma; J44.1 Chronic obstructive pulmonary disease with (acute) exacerbation; E87.5 Hyperkalemia; K21.9 Gastro-esophageal reflux disease without esophagitis; Z79.4 Long term (current) use of insulin; Z88.0 Allergy status to penicillin; Z87.01 Personal history of pneumonia (recurrent); Z86.14 Personal history of Methicillin resistant Staphylococcus aureus infection; Z90.49 Acquired absence of other specified parts of digestive tract; Z79.899 Other long term (current) drug therapy; Z82.49 Family history of ischemic heart disease and other diseases of the circulatory system; Z83.3 Family history of diabetes mellitus
CPT/HCPCS: 36415; 36600; 71045; 78452; 80048; 81001; 82803; 82805; 82962; 83735; 83930; 84100; 84484; 85025; 93005; 93010; 93017; 94640; 99285; A9502; C9113; J1170; J1650; J1815; J2270; J2405; J2785; J7030; J7512

== ENCOUNTER 2018-01-29 02:39 | Emergency (ER) | payer MEDICARE ==
[2018-01-29] MEDS ORDERED: NACL 0.9% 1000 ML 1,000 ML IV ONE ×3 (03:10→06:05)
[2018-01-29] MEDS ORDERED: ZOFRAN IV ONE ×2 (03:10→04:43)
[2018-01-29] MEDS ORDERED: TORADOL IV ONE (03:15)
[2018-01-29] MEDS ORDERED: TORADOL ONE (03:19)
[2018-01-29] MEDS ORDERED: NACL 0.9% 1000 ML 1,000 ML ONE (03:21)
[2018-01-29 03:44] LABS: Basophils % (Auto) 0.5 % (0.0-1.8); Eosinophils # (Auto) 0.2 K/mm3 (0.0-0.4); Eosinophils % (Auto) 1.8 % (0.0-4.3); Hematocrit 39.6 % (30.3-42.9); Hemoglobin 13.1 gm/dl (10.1-14.3); Lymphocytes # (Auto) 1.7 K/mm3 (1.2-5.4); Lymphocytes % (Auto) 19.5 % (13.4-35.0); Mean Corpuscular HGB Conc 33 % (30-34); Mean Corpuscular Hemoglobin 29 pg (28-32); Mean Corpuscular Volume 88 fl (79-97); Monocytes # (Auto) 0.4 K/mm3 (0.0-0.8); Monocytes % (Auto) 4.5 % (0.0-7.3); Platelet Count 324 K/mm3 (140-440); Red Cell Distribution Width 15.3 % (13.2-15.2)
[2018-01-29 03:55] LABS: BUN/Creatinine Ratio 12; Blood Urea Nitrogen 12 mg/dL (7-17); Calcium 8.5 mg/dL (8.4-10.2); Hemolysis Index 11
[2018-01-29] MEDS ORDERED: HumuLIN R IV ONE ×2 (04:43→08:43)
[2018-01-29] MEDS ORDERED: CLEOCIN 600 MG/50 mL 600 MG/50 ML BAG IV ONE (04:43)
[2018-01-29] MEDS ORDERED: SUBLIMAZE IV ONE ×2 (04:43→08:41)
[2018-01-29] MEDS ORDERED: NACL ONE (05:39)
--- NOTE | 2018-01-29 05:58 | Emergency Department Report ---
<BRAN HEARN - Last Filed: 01/29/18 06:00> ED General Adult HPI - General Chief complaint: Dental/Oral Stated complaint: JAW PAIN Time Seen by Provider: 01/29/18 05:58 Source: patient Mode of arrival: Ambulatory Limitations: No Limitations - History of Present Illness Initial comments: History diabetes history of COPD l sided jaw pain now with soft tissue swelling to the left jaw for several days. Patient is notpreg. She has no chest pain she thinks she has a low-grade temp she has any stridor or drooling no rash no headache no stiff neck -: days(s) Location: head, face, mouth Severity scale (0 -10): 10 Associated Symptoms: denies other symptoms, malaise, weakness. denies: confusion, chest pain, cough, diaphoresis, headaches, nausea/vomiting, rash, seizure, shortness of breath, syncope - Related Data Previous Rx's Medication Instructions Recorded Last Taken Type ALBUTEROL Inhaler [ProAir HFA 2 puff IH QID PRN #1 inhalation 12/22/17 Unknown Rx Inhaler] ALBUTEROL NEB's [Proventil 0.083% 2.5 mg IH Q6HRT PRN #120 nebu 12/22/17 Unknown Rx NEBS] Gabapentin [Neurontin] 800 mg PO TID #90 tablet 12/22/17 Unknown Rx Insulin Glargine [Lantus VIAL] 30 units SUB-Q QHS #1 vial 12/22/17 Unknown Rx Lispro Insulin [Humalog] 10 unit SUB-Q AC #1 vial 12/22/17 Unknown Rx Pantoprazole [Protonix TAB] 40 mg PO DAILY #30 tablet 12/22/17 Unknown Rx Tiotropium [place] [Spiriva 4 gm IH DAILY #1 mist.inhal 12/22/17 Unknown Rx Respimat] Zolpidem [Ambien] 10 mg PO QHS #10 tablet 12/22/17 Unknown Rx predniSONE [Deltasone] 10 mg PO QDAY #2 tab 12/22/17 Unknown Rx Clindamycin [Clindamycin CAP] 300 mg PO Q8H #21 cap 01/29/18 Unknown Rx HYDROcodone/APAP 5-325 [[place] 1 each PO Q6HR PRN #14 tablet 01/29/18 Unknown Rx 5/325] Ondansetron [Zofran Odt] 4 mg PO Q8HR PRN #14 tab.rapdis 01/29/18 Unknown Rx Allergies Allergy/AdvReac Type Severity Reaction Status Date / Time heparin Allergy Intermediate Hives Verified 08/09/17 07:40 Penicillins Allergy Intermediate Hives Verified 08/09/17 07:40 ketorolac tromethamine Allergy Itching Verified 08/09/17 07:40 [From Toradol] tramadol HCl [From Ultram] Allergy Itching Verified 08/09/17 07:40 ED Review of Systems ROS: Stated complaint: JAW PAIN Other details as noted in HPI Comment: All other systems reviewed and negative Constitutional: malaise. denies: diaphoresis Eyes: denies: eye discharge, vision change ENT: dental pain. denies: hearing loss, epistaxis Respiratory: denies: shortness of breath, SOB with exertion, SOB at rest, stridor Cardiovascular: denies: chest pain, palpitations, dyspnea on exertion, orthopnea , edema, syncope Gastrointestinal: denies: diarrhea, constipation, hematemesis, melena, hematochezia Neurological: denies: headache, weakness, numbness, paresthesias, confusion, abnormal gait ED Past Medical Hx - Past Medical History Hx Hypertension: No Hx Heart Attack/AMI: No Hx Congestive Heart Failure: No Hx Diabetes: Yes Hx Deep Vein Thrombosis: No Hx Pulmonary Embolism: No Hx Liver Disease: No Hx Sickle Cell Disease: No (Sickle Cell Trait) Hx Arthritis: No Hx Asthma: Yes Hx COPD: No Hx Tuberculosis: No Hx HIV: No Additional medical history: pneumonia. MRSA - Surgical History Hx Coronary Stent: No Hx Open Heart Surgery: No Hx Pacemaker: No Hx Internal Defibrillator: No Hx Cholecystectomy: Yes Hx Appendectomy: No Hx Breast Surgery: No Additional Surgical History: X 2. HERNIA REPAIR - Social History Smoking Status: Never Smoker - Medications Home Medications: Home Medications Medication Instructions Recorded Confirmed Last Taken Type ALBUTEROL Inhaler [ProAir HFA 2 puff IH QID PRN #1 inhalation 12/22/17 Unknown Rx Inhaler] ALBUTEROL NEB's [Proventil 0.083% 2.5 mg IH Q6HRT PRN #120 nebu 12/22/17 Unknown Rx NEBS] Gabapentin [Neurontin] 800 mg PO TID #90 tablet 12/22/17 Unknown Rx Insulin Glargine [Lantus VIAL] 30 units SUB-Q QHS #1 vial 12/22/17 Unknown Rx Lispro Insulin [Humalog] 10 unit SUB-Q AC #1 vial 12/22/17 Unknown Rx Pantoprazole [Protonix TAB] 40 mg PO DAILY #30 tablet 12/22/17 Unknown Rx Tiotropium [place] [Spiriva 4 gm IH DAILY #1 mist.inhal 12/22/17 Unknown Rx Respimat] Zolpidem [Ambien] 10 mg PO QHS #10 tablet 12/22/17 Unknown Rx predniSONE [Deltasone] 10 mg PO QDAY #2 tab 12/22/17 Unknown Rx Clindamycin [Clindamycin CAP] 300 mg PO Q8H #21 cap 01/29/18 Unknown Rx HYDROcodone/APAP 5-325 [[place] 1 each PO Q6HR PRN #14 tablet 01/29/18 Unknown Rx 5/325] Ondansetron [Zofran Odt] 4 mg PO Q8HR PRN #14 tab.rapdis 01/29/18 Unknown Rx ED Physical Exam - General Limitations: No Limitations General appearance: alert, anxious, other (no stridor no drooling) - Head Head exam: Present: atraumatic, normocephalic - Eye Eye exam: Present: PERRL, EOMI (facial swelling to the left jaw tenderness and erythema) - Neck Neck exam: Present: normal inspection. Absent: tenderness, meningismus - Respiratory Respiratory exam: Present: normal lung sounds bilaterally. Absent: respiratory distress, wheezes, rales, rhonchi, stridor - GI/Abdominal GI/Abdominal exam: Present: soft. Absent: distended, tenderness, guarding, rebound, mass, pulsatile mass - Extremities Exam Extremities exam: Present: normal capillary refill. Absent: pedal edema, joint swelling, calf tenderness - Back Exam Back exam: Present: normal inspection. Absent: CVA tenderness (R), CVA tenderness (L), muscle spasm, paraspinal tenderness, vertebral tenderness - Neurological Exam Neurological exam: Present: alert, oriented X3, CN II-XII intact. Absent: motor sensory deficit - Skin Skin exam: Present: erythema ED Course Vital Signs 01/29/18 01/29/18 01/29/18 02:52 03:00 03:12 Temperature 98.7 F Pulse Rate 84 Respiratory 18 Rate Blood Pressure 131/88 114/66 Blood Pressure [Left] O2 Sat by Pulse 98 97 99 Oximetry 01/29/18 01/29/18 01/29/18 03:15 03:19 03:25 Temperature Pulse Rate Respiratory 18 18 Rate Blood Pressure 131/88 Blood Pressure [Left] O2 Sat by Pulse 100 99 Oximetry 01/29/18 01/29/18 01/29/18 03:31 03:45 04:00 Temperature Pulse Rate Respiratory Rate Blood Pressure 131/88 131/88 138/99 Blood Pressure [Left] O2 Sat by Pulse 97 98 96 Oximetry 01/29/18 01/29/18 01/29/18 04:15 05:36 06:29 Temperature Pulse Rate Respiratory 18 Rate Blood Pressure 138/99 138/99 Blood Pressure [Left] O2 Sat by Pulse 97 98 Oximetry 01/29/18 01/29/18 01/29/18 06:31 06:45 07:00 Temperature Pulse Rate Respiratory Rate Blood Pressure 138/99 138/99 116/80 Blood Pressure [Left] O2 Sat by Pulse 97 97 96 Oximetry 01/29/18 01/29/18 01/29/18 07:15 07:31 07:45 Temperature Pulse Rate Respiratory Rate Blood Pressure 116/80 116/80 116/80 Blood Pressure [Left] O2 Sat by Pulse 94 97 99 Oximetry 01/29/18 01/29/18 01/29/18 08:01 09:23 10:30 Temperature 98.9 F Pulse Rate 81 84 Respiratory 16 16 16 Rate Blood Pressure Blood Pressure 118/70 115/78 [Left] O2 Sat by Pulse 98 98 Oximetry ED Medical Decision Making - Lab Data Result diagrams: 01/29/18 03:32 01/29/18 03:32 - Medical Decision Making Patient given IV fluids and antibiotics awaiting CT to further delineate this area patient referral to the care of the oncoming physician alkaline phosphatase will reevaluate patient Critical care attestation.: If time is entered above; I have spent that time in minutes in the direct care of this critically ill patient, excluding procedure time. ED Disposition Clinical Impression: Hyperglycemia due to type 2 diabetes mellitus, Cellulitis and abscess of face Disposition: DC-01 TO HOME OR SELFCARE Condition: Stable Instructions: Diabetes Mellitus Type 2 in Adults (ED) Additional Instructions: Please allow her primary care physician the next 2-3 days. Please follow-up with the dentist in the next 2-3 days. Prescriptions: Clindamycin [Clindamycin CAP] 300 mg PO Q8H #21 cap HYDROcodone/APAP 5-325 [[place] 5/325] 1 each PO Q6HR PRN #14 tablet PRN Reason: Pain Ondansetron [Zofran Odt] 4 mg PO Q8HR PRN #14 tab.rapdis PRN Reason: Nausea And Vomiting Referrals: HERLINDA JENNINGS MD [Primary Care Provider] - 3-5 Days <KITTY BURTON - Last Filed: 01/29/18 11:05> ED Medical Decision Making - Lab Data Result diagrams: 01/29/18 03:32 01/29/18 03:32 ED Disposition Is pt being admited?: No
[2018-01-29 06:07] LABS: Bilirubin,Urine NEG (Negative); Blood,Urine LG (Negative); Color,Urine Red (Yellow); Mucus,Urine FEW /HPF; Protein,Urine <15 mg/dL mg/dL (Negative); Urobilinogen,Urine < 2.0 mg/dL (<2.0)
--- NOTE | 2018-01-29 06:25 | Cat Scan Report ---
FINAL REPORT EXAM: CT NECK W CON HISTORY: sts LT JAW PAIN TECHNIQUE: Routine axial imaging was obtained of the soft tissues of the neck extending from skull base through the thoracic inlet following the intravenous injection of 100 cc of Omnipaque 300. Sagittal and coronal reconstructions were reviewed. FINDINGS: There is slight reticulation of the subcutaneous fat overlying the of the mandible on the left side. Mild cellulitis cannot be excluded. There is no evidence of abscess or osteomyelitis. The vascular structures enhance normally. There is no evidence of adenopathy in any compartment of the neck. The thyroid gland appears normal. The lung apices are clear. The retropharyngeal space appears normal. Along the skullbase the sinuses are clear. The mastoid air cells are well pneumatized. The airway appears normal. The cervical spine is unremarkable. IMPRESSION: Very mild reticulation of the subcutaneous fat overlying the body of the mandible on the left side. Mild cellulitis cannot be excluded. No evidence of abscess formation.
--- NOTE | 2018-01-29 08:26 | Emergency Department Report ---
Blank Doc - Documentation Documentation: Patient was signed to me by my colleague Dr. Hearn. Patient presented to his left mandibular swelling and hyperglycemia. Patient stated that she is feeling much better. I advised patient to increase her Lantus to 40 units daily at bedtime and continue her NovoLog 10 units before meals and continue the sliding scale that she has been using. CT scan showed Referring Physician: BRAN HEARN Patient Name: CECILLE SANDOVAL Date of : 1980 Sex: Female Report Date: 2018-01-29 Report Status: Finalized Findings [facility] [address] [place] [address] Cat Scan Report Signed Patient: CECILLE SANDOVAL MR#: [id number] : 1980 Acct:[id number] Age/Sex: 37 / F ADM Date: 01/29/18 Loc: ED Attending Dr: Ordering Physician: BRAN HEARN MD Date of Service: 01/29/18 Procedure(s): CT neck w con Accession Number(s): [id number] cc: BRAN HEARN MD FINAL REPORT EXAM: CT NECK W CON HISTORY: sts LT JAW PAIN TECHNIQUE: Routine axial imaging was obtained of the soft tissues of the neck extending from skull base through the thoracic inlet following the intravenous injection of 100 cc of Omnipaque 300. Sagittal and coronal reconstructions were reviewed. FINDINGS: There is slight reticulation of the subcutaneous fat overlying the of the mandible on the left side. Mild cellulitis cannot be excluded. There is no evidence of abscess or osteomyelitis. The vascular structures enhance normally. There is no evidence of adenopathy in any compartment of the neck. The thyroid gland appears normal. The lung apices are clear. The retropharyngeal space appears normal. Along the skullbase the sinuses are clear. The mastoid air cells are well pneumatized. The airway appears normal. The cervical spine is unremarkable. IMPRESSION: Very mild reticulation of the subcutaneous fat overlying the body of the mandible on the left side. Mild cellulitis cannot be excluded. No evidence of abscess formation. Transcribed By: RB Dictated By: SHELBY BURT MD Electronically Authenticated By: SHELBY BURT MD Signed Date/Time: 01/29/18619 DD/ 9 TD/TT: 01/29/18619 I also advised patient to follow-up with her primary care physician in the next 2-3 days and return to the ER if her symptoms are not improving. I also advised her to follow-up with the dentist.
[2018-01-29 10:31] VITALS: BP 115/78
== END 2018-01-29 11:25 | disposition home or self-care (01) ==
LOC: ED 02:39
DX: L02.01 Cutaneous abscess of face (principal); E11.65 Type 2 diabetes mellitus with hyperglycemia; J44.9 Chronic obstructive pulmonary disease, unspecified; Z79.4 Long term (current) use of insulin; Z88.0 Allergy status to penicillin; Z88.8 Allergy status to other drugs, medicaments and biological substances
CPT/HCPCS: 36415; 70491; 80048; 81001; 82805; 82962; 84703; 85025; 96361; 96365; 96375; 99284; J2405; J3010; J7030; Q9967; J1815; J1885